=== PATIENT | male | born 1945 | race Caucasian/White ===

== ENCOUNTER → 2017-01-14 | Outpatient (CLI) | payer OTHER ==
[~2017-01-14] MED LIST: ALFU10TA2 PO; CHOL100010 PO; CINA0.42 PO; CLR10 PO; DOCU100C31 PO; FINA5TAB PO; ONDA4TAB7 SL
[2017-01-14 12:20] LABS: BASO % 0.7 %; BASO ABS # 0.03 K/uL (0-0.2); COMPLETE YES; EOS % 1.4 %; HEMATOCRIT 42.4 % (42-52); IG% 0.2 %; LYMPH % 22.5 %; LYMPH ABS # 0.94 K/uL (1.2-3.4); MEAN CORPUSCULAR HEMOGLOBIN 32.2 pg (25-34); MEAN CORPUSCULAR HGB CONC 35.4 g/dl (32-36); MEAN PLATELET VOLUME 10.8 fL (7.4-10.4); MONO % 12.9 %; NEUT % 62.3 %; PLATELET COUNT 125 K/uL (130-400); RED BLOOD COUNT 4.66 M/uL (4.7-6.1); WHITE BLOOD COUNT 4.17 K/uL (4.8-10.8)
[2017-01-14 14:00] LABS: ALT/SGPT 30 U/L (12-78); BLOOD UREA NITROGEN 30 mg/dl (7-18); BUN/CREATININE RATIO 24.9 (10-20); CALCIUM 8.9 mg/dl (8.5-10.1); CARBON DIOXIDE 32 mmol/L (21-32); CHLORIDE 106 mmol/L (98-107); CHOLESTEROL 209 mg/dl (0-200); GLUCOSE 86 mg/dl (70-99); POTASSIUM 4.3 mmol/L (3.5-5.1); SODIUM 143 mmol/L (136-145); TRIGLYCERIDES 85 mg/dl (0-150); VERY LOW DENSITY LIPOPROT CALC 17 mg/dl
[2017-01-14 14:03] LABS: ALB/GLOB RATIO 1.2 (0.9-2); ALKALINE PHOSPHATASE 87 U/L (45-117); AST/SGOT 23 U/L (15-37); CHOLESTEROL/HDL RATIO 3.9; HDL CHOLESTEROL 54 mg/dl; LDL CHOLESTEROL CALCULATED 138 mg/dl
--- NOTE | 2017-01-21 08:34 | CODING QUERY MEDICAL NECESSITY ---
CQSUPPORTING DIAGNOSIS NEEDED A supporting diagnosis is required for the test/procedure performed on this patient in order for us to be reimbursed by the patient's insurance. Please provide a supporting diagnosis for the following test/procedure listed below next to the test name along with your signature. *If there is no additional diagnosis for this patient that would support the following test/procedure please document that below next to the test/procedure. Test(s)/Procedure(s) that require a supporting diagnosis: DOS 01/14/17 VITAMIN B12 TEST Provider Signature: Date: Thank you Nora Roman [facility] Information Management Once completed, please kindly fax back to [phone] For questions please call [phone]
== END | disposition home or self-care (01) ==
LOC: C.LABPBG 10:05
PROVIDERS: ATTEND Internal Medicine
DX: E78.5 Hyperlipidemia, unspecified (principal); R26.9 Unspecified abnormalities of gait and mobility

== ENCOUNTER → 2017-03-06 | Outpatient (CLI) | payer OTHER ==
[2017-03-06 15:42] LABS: CALCIUM 8.7 mg/dl (8.5-10.1)
[2017-03-06 15:56] LABS: THYROID STIMULATING HORMONE 1.62 uIu/ml (0.300-4.500)
== END | disposition home or self-care (01) ==
LOC: C.LABSPEC 16:12
PROVIDERS: ATTEND Internal Medicine
DX: M81.0 Age-related osteoporosis without current pathological fracture (principal); E21.0 Primary hyperparathyroidism; E04.1 Nontoxic single thyroid nodule; E55.9 Vitamin D deficiency, unspecified; D69.6 Thrombocytopenia, unspecified

== ENCOUNTER → 2018-02-10 | Outpatient (CLI) | payer OTHER ==
[2018-02-10 13:12] LABS: BASO % 0.2 %; BASO ABS # 0.01 K/uL (0-0.2); EOS % 1.4 %; EOS ABS # 0.07 K/uL (0-0.5); HEMATOCRIT 43.7 % (42-52); HEMOGLOBIN 15.5 g/dL (14.0-18.0); IG# 0.02 K/uL (0.00-0.02); LYMPH % 17.5 %; MEAN CELL VOLUME 91.2 fL (80-100); MEAN CORPUSCULAR HEMOGLOBIN 32.4 pg (25-34); MEAN CORPUSCULAR HGB CONC 35.5 g/dl (32-36); MEAN PLATELET VOLUME 9.9 fL (7.4-10.4); MONO % 11.1 %; MONO ABS # 0.57 K/uL (0.11-0.59); NEUT % 69.4 %; NEUT ABS # 3.57 K/uL (1.4-6.5); PLATELET COUNT 145 K/uL (130-400); RED CELL DISTRIBUTION WIDTH CV 13.1 % (11.5-14.5); RED CELL DISTRIBUTION WIDTH SD 43.2 fL (36.4-46.3); WHITE BLOOD COUNT 5.14 K/uL (4.8-10.8)
[2018-02-10 14:05] LABS: ALT/SGPT 22 U/L (12-78); AST/SGOT 19 U/L (15-37); BLOOD UREA NITROGEN 24 mg/dl (7-18); CALCIUM 9.1 mg/dl (8.5-10.1); CARBON DIOXIDE 33 mmol/L (21-32); CHOLESTEROL 211 mg/dl (0-200); CREATININE 1.19 mg/dl (0.60-1.40); GLUCOSE 83 mg/dl (70-99); POTASSIUM 4.1 mmol/L (3.5-5.1); SODIUM 140 mmol/L (136-145)
[2018-02-10 14:12] LABS: ALKALINE PHOSPHATASE 90 U/L (45-117); LDL CHOLESTEROL CALCULATED 133 mg/dl; TOTAL PROTEIN 7.3 gm/dl (6.4-8.2)
== END | disposition home or self-care (01) ==
LOC: C.LABPBG 09:44
PROVIDERS: ATTEND Internal Medicine
DX: E04.0 Nontoxic diffuse goiter (principal); M81.0 Age-related osteoporosis without current pathological fracture; E55.9 Vitamin D deficiency, unspecified; N40.0 Benign prostatic hyperplasia without lower urinary tract symptoms; J45.909 Unspecified asthma, uncomplicated; E78.5 Hyperlipidemia, unspecified; R97.20 Elevated prostate specific antigen [PSA]; D69.6 Thrombocytopenia, unspecified

== ENCOUNTER 2020-09-04 20:00 | Inpatient (IN) ==
[2020-09-04] MEDS ORDERED: ERYTHROMYCIN OP OINT 5 MG/GM 3.5 GM TUBE OPL ONE (20:34)
[2020-09-04 20:37] LABS: Basophils # (auto) 0.01 K/uL (0-0.2); Basophils % (auto) 0.3 %; Eosinophils # (auto) 0.08 K/uL (0-0.5); Eosinophils % (auto) 2.2 %; Hematocrit (blood only) 37.9 % (42-52); Hemoglobin 13.2 g/dL (14.0-18.0); Immature Granulocytes # (auto) 0.02 K/uL (0.00-0.02); Immature Granulocytes % (auto) 0.5 %; Lymphocytes % (auto) 29.8 %; Mean Corpuscular Hgb Conc 34.8 g/dL (32-36); Mean Platelet Volume 10.5 fL (7.4-10.4); Monocytes # (auto) 0.52 K/uL (0.11-0.59); Monocytes % (auto) 14.1 %; Neutrophils # (auto) 1.96 K/uL (1.4-6.5); Neutrophils % (auto) 53.1 %; Platelet Count 140 K/uL (130-400); RDW Coefficient of Variation 12.6 % (11.5-14.5); RDW Standard Deviation 42.6 fL (36.4-46.3); Red Blood Count 4.12 M/uL (4.7-6.1); White Blood Count 3.69 K/uL (4.8-10.8)
[2020-09-04 20:44] LABS: Alanine Aminotransferase 42 U/L (12-78); Albumin Level 3.2 gm/dl (3.4-5.0); Aspartate Aminotransferase 34 U/L (15-37); BUN Creatinine Ratio 24.9 (10-20); Blood Urea Nitrogen 34 mg/dl (7-18); Calcium 9.3 mg/dl (8.5-10.1); Carbon Dioxide 30 mmol/L (21-32); Chloride 100 mmol/L (98-107); Creatinine Clr Calc Pharmacy 37.9 ml/min; Est GFR (African American) 58.4; Est GFR (Non-African American) 50.4; Glucose 99 mg/dl (70-99); Magnesium 1.7 mg/dl (1.8-2.4); Potassium 3.9 mmol/L (3.5-5.1); Sodium 137 mmol/L (136-145)
[2020-09-04 20:55] LABS: Alkaline Phosphatase 106 U/L (45-117); Bilirubin,Total 1.1 mg/dl (0.2-1); Globulin 3.4 gm/dl (2.5-4.0); Total Protein 6.6 gm/dl (6.4-8.2); Troponin I < 0.015 ng/ml (0-0.045)
[2020-09-04] MEDS ORDERED: AMPICILLIN/SULBACTAM SOD 3,000 MG in 0.9 % SODIUM CHLORIDE 100 ML IV STA (22:57)
[2020-09-04] MEDS ORDERED: OXYMETAZOLINE 0.05% 30 ML BTL ONE (22:58)
[2020-09-04 22:59] LABS: Appearance Urine Clear (Clear); Bacteria Urine Automated 4+ (Negative); Bilirubin Urine Negative (Negative); Blood Urine 3+ (Negative); Color Urine Yellow; Epithelial Cell Urine Auto 0-5 /lpf (0-5); Glucose Urine UA Negative (Negative); Ketones Urine Negative (Negative); Leukocyte Esterase Urine 2+ (Negative); Nitrite Urine Positive (Negative); Protein Urine Negative (Negative); RBC Urine Automated >30 /hpf (0-4); Specific Gravity Urine 1.013 (1.000-1.030); Urobilinogen Urine Negative (Negative); WBC Urine Automated >30 /hpf (0-5)
--- NOTE | 2020-09-05 01:16 | Emergency Department Note ---
History of Present Illness General Chief complaint: TIA Symptoms Stated complaint: TIA SX, CONFUSION Source: patient, family (Sister at the bedside) and RN notes reviewed Mode of arrival: EMS Limitations: other (Cognitive impairment) History of Present Illness Provider complaint: Confusion, behavioral change Male who presents emergency department with his sister who states he had behavioral changes over the course of the last week. Patient has a known history of prostate cancer and is scheduled for radiation seed placement in 3 days. The patient has also had several recent eye surgeries so he has been staying with his sister for supervision and medical care. The patient has had periodic episodes lasting up to 20 minutes of confusion and some change in his speech pattern. The patient has not been overtly confused but has been stating that he has wet himself or that he has to pee, or tapping his thighs repeatedly. His sister is concerned because she thought maybe the left side of his face was not moving properly earlier. He does receive eye medications several times a day per his landscape management technician after recent eyelid surgery. Patient had Covid testing done several days ago and was negative. He has been eating and drinking well. He has not had any vomiting or diarrhea. There has been no complaints of chest pain or shortness of breath. Home Medications Medication Instructions Recorded Confirmed Type cetirizine 10 mg capsule 10 mg PO QPM cap 04/28/20 09/04/20 History cholecalciferol (vitamin D3) 25 2,000 unit PO QPM tab 05/09/20 09/04/20 History mcg (1,000 unit) tablet alfuzosin 10 mg PO DAILY 08/17/20 09/04/20 History calcium carbonate [Tums Ultra] 400 mg PO QPM 08/17/20 09/04/20 History finasteride 5 mg PO DAILY 08/17/20 09/04/20 History ibuprofen 400 mg PO BID PRN 08/17/20 09/04/20 History erythromycin 1 applic OPL TID 09/04/20 09/04/20 History leuprolide (3 month) [Eligard (3 22.5 mg SUBCUT DIRECTED 09/04/20 09/04/20 History month)] omeprazole 20 mg PO QAM 09/04/20 09/04/20 History Allergies Allergy/AdvReac Type Severity Reaction Status Date / Time alendronate sodium Allergy Intermediate nausea Verified 09/04/20 21:58 tamsulosin Allergy Intermediate nausea Verified 09/04/20 21:58 Past Med/Surg History Medical History (Updated 09/05/20 @ 01:22 by Carlotta Parsons MD) Asthma no inhaler Atrophy of left kidney Bladder diverticulum Cerebral palsy per records, sister (Lo) denies Chronic GERD Cognitive developmental delay Diffuse nontoxic goiter Diverticulosis Enlarged prostate without lower urinary tract symptoms (luts) Esophageal dysmotility Gait disturbance Hyperlipidemia Hyperparathyroidism Intellectual disability lives alone/independently, able to read/write, sister lives next door (legal guardian) Nephrolithiasis Osteoporosis Sensory hearing loss Skin cancer of anterior chest SCC Surgical History H/O colonoscopy Tubular adenoma H/O parathyroidectomy History of cataract surgery R/L History of lung biopsy 2002 ([facility]), 2006 ([facility]) FIRST TIME FOR LUNG ABSCESS, SECOND FOR ABNORMAL IMAGING History of placement of ear tubes No longer in place History of prostate biopsy x3 History of surgery Bilateral upper eyelids for drooping Hx of cholecystectomy laparoscopic--Dr. Shah in [place] S/P skin biopsy Mohs surgery for BCC on his face 03/01/2020 Family History Mother , 77yo AAA (abdominal aortic aneurysm) Enlarged heart Alzheimer disease Hypertension Father , 77yo COPD (chronic obstructive pulmonary disease) Hypertension Stroke Sister Hypertension Grandfather (Maternal) Diabetes Other Hyperlipidemia Osteoporosis Thyroid cancer Denies family history of Ovarian cancer Prostate cancer Myocardial infarction Breast cancer Colorectal cancer Social History Smoking Status: Never smoker Second Hand Exposure: Yes (FATHER SMOKED PIPE); Hx Alcohol Use: No Hx Substance Use: No Preferred Language: Botswanan Communication Ability: Effective Visual Impairment: No Limitations Hearing Ability: Use of Hearing Aid Religious Education Teacher Required: No Beliefs That Will Affect Care: None marital status: Single Current Living Situation: Alone current occupational status: disabled Feels Safe at Home: Yes caffeine: No during the past year weight has: remained stable Dental Care, Regularly: No Physical Activity Frequency: Daily Seatbelt Use: always Assistive Devices: Denture - Upper, Glasses and Hearing Aid - Bilateral Review of Systems Unobtainable due to cognitive status (Cognitive delay) and Other (History is somewhat limited secondary to cognitive delay and largely obtained per sister/caregiver at the bedside) Physical Exam Vital Signs Vital Signs - 24 hr 09/04/20 20:04 09/04/20 20:07 09/04/20 20:45 Temperature 36.6 C Temperature Source Oral Pulse Rate 78 85 78 Pulse Rate from SpO2 Sensor Respiratory Rate 20 18 20 Blood Pressure 157/90 H 157/90 H 161/88 H Blood Pressure Mean 119 112 116 Pulse Oximetry 93 Oxygen Delivery Method Room Air Sepsis Recent Fever Within 48 Hours No Sepsis New/Unexplained Change in Mental Status N/A Sepsis Action Taken by Nursing No Action Required 09/04/20 21:00 09/04/20 22:00 09/04/20 22:30 Temperature Temperature Source Pulse Rate 76 78 76 Pulse Rate from SpO2 Sensor 77 Respiratory Rate 23 22 20 Blood Pressure 155/86 H 158/100 H 155/91 H Blood Pressure Mean 95 114 111 Pulse Oximetry 93 Oxygen Delivery Method Sepsis Recent Fever Within 48 Hours Sepsis New/Unexplained Change in Mental Status Sepsis Action Taken by Nursing Vital signs reviewed. General: Cognitively delayed, elderly somewhat ill-appearing 75-year-old male, in no significant distress. HEENT: No scleral icterus, left conjunctiva is mildly injected, PERRLA, neck supple. Cardiovascular: Regular rate and rhythm, no extra sounds. Pulmonary: Clear to auscultation bilaterally, normal work of breathing. Abdomen: Soft, nontender, nondistended, positive bowel sounds. Musculoskeletal: Atraumatic, no peripheral edema. Neurologic: Patient awake alert and oriented x 3, full strength in all 4 extremities. Cranial nerves 2 through 12 grossly intact. No appreciable juan olabial fold flattening. Skin: Warm, dry, no rash Course Administered Medications Discontinued Medications Erythromycin (Erythromycin Op Oint 5 Mg/Gm 3.5 Gm Tube) 1 appln OPL NOW ONE Stop: 09/04/20 20:35 Last Admin: 09/04/20 21:32 Dose: 1 appln Documented by: [id number] Ampicillin Sodium/Sulbactam Sodium 3,000 mg/ Sodium Chloride 108 mls @ 200 mls/hr IV NOW STA; Protocol Stop: 09/04/20 23:29 Last Infusion: 09/05/20 00:15 Dose: 0 mls/hr Documented by: [id number] Admin: 09/04/20 23:36 Dose: 200 mls/hr Documented by: [id number] Oxymetazoline HCl (Oxymetazoline 0.05% 30 Ml Btl) 2 sprays NA NOW ONE Stop: 09/04/20 22:59 Last Admin: 09/04/20 23:36 Dose: 2 sprays Documented by: [id number] Medical Decision Making Differential Diagnosis Infection, dehydration, metabolic abnormality, hypo/hyperglycemia, electrolyte disturbance, anemia, hypoxia, cardiac sources, intracerebral event, toxicologic, neurologic, as well as other pathologies. Medical Records Attestation: I reviewed the patient's medical records. Home Medications Current Medication List: was personally reviewed by me Laboratory Data Attestation: I reviewed the patient's lab results. Result diagrams: 09/04/20 20:05 09/04/20 20:05 Lab Results 09/04/20 09/04/20 09/04/20 Range/Units 20:05 20:05 20:46 WBC 3.69 L (4.8-10.8) K/uL RBC 4.12 L (4.7-6.1) M/uL Hgb 13.2 L (14.0-18.0) g/dL Hct 37.9 L (42-52) % MCV 92.0 (80-100) fL MCH 32.0 (25-34) pg MCHC 34.8 (32-36) g/dL RDW Std Deviation 42.6 (36.4-46.3) fL RDW Coeff of Patricia 12.6 (11.5-14.5) % Plt Count 140 (130-400) K/uL MPV 10.5 H (7.4-10.4) fL Immature Gran % (Auto) 0.5 % Neut % (Auto) 53.1 % Lymph % (Auto) 29.8 % Dawes % (Auto) 14.1 % Eos % (Auto) 2.2 % Baso % (Auto) 0.3 % Neut # (Auto) 1.96 (1.4-6.5) K/uL Lymph # (Auto) 1.10 L (1.2-3.4) K/uL Dawes # (Auto) 0.52 (0.11-0.59) K/uL Eos # (Auto) 0.08 (0-0.5) K/uL Baso # (Auto) 0.01 (0-0.2) K/uL Immature Gran # (Auto) 0.02 (0.00-0.02) K/uL Sodium 137 (136-145) mmol/L Potassium 3.9 (3.5-5.1) mmol/L Chloride 100 (98-107) mmol/L Carbon Dioxide 30 (21-32) mmol/L Anion Gap 8.0 (3-11) BUN 34 H (7-18) mg/dl Creatinine 1.38 (0.6-1.4) mg/dl Est Cr Clr Drug Dosing 37.9 ml/min Est GFR ( Amer) 58.4 Est GFR (Non-Af Amer) 50.4 BUN/Creatinine Ratio 24.9 H (10-20) Glucose 99 (70-99) mg/dl Lactate 0.7 (0.4-2.0) mmol/L Calcium 9.3 (8.5-10.1) mg/dl Magnesium 1.7 L (1.8-2.4) mg/dl Total Bilirubin 1.1 H (0.2-1) mg/dl AST 34 (15-37) U/L ALT 42 (12-78) U/L Alkaline Phosphatase 106 (45-117) U/L Troponin I < 0.015 (0-0.045) ng/ml Total Protein 6.6 (6.4-8.2) gm/dl Albumin 3.2 L (3.4-5.0) gm/dl Globulin 3.4 (2.5-4.0) gm/dl Albumin/Globulin Ratio 1.0 (0.9-2) TSH 2.990 (0.300-4.500) uIu/ml Urine Color Urine Appearance (Clear) Urine pH (4.5-7.5) Ur Specific Cyril (1.000-1.030) Urine Protein (Negative) Urine Glucose (UA) (Negative) Urine Ketones (Negative) Urine Blood (Negative) Urine Nitrite (Negative) Urine Bilirubin (Negative) Urine Urobilinogen (Negative) Ur Leukocyte Esterase (Negative) Urine WBC (Auto) (0-5) /hpf Urine RBC (Auto) (0-4) /hpf U Hyaline Cast (Auto) (0-5) /lpf U Epithel Cells (Auto) (0-5) /lpf Urine Bacteria (Auto) (Negative) SARS-CoV-2 Ag (Rapid) (Negative) 09/04/20 09/04/20 Range/Units 22:39 Unknown WBC (4.8-10.8) K/uL RBC (4.7-6.1) M/uL Hgb (14.0-18.0) g/dL Hct (42-52) % MCV (80-100) fL MCH (25-34) pg MCHC (32-36) g/dL RDW Std Deviation (36.4-46.3) fL RDW Coeff of Patricia (11.5-14.5) % Plt Count (130-400) K/uL MPV (7.4-10.4) fL Immature Gran % (Auto) % Neut % (Auto) % Lymph % (Auto) % Dawes % (Auto) % Eos % (Auto) % Baso % (Auto) % Neut # (Auto) (1.4-6.5) K/uL Lymph # (Auto) (1.2-3.4) K/uL Dawes # (Auto) (0.11-0.59) K/uL Eos # (Auto) (0-0.5) K/uL Baso # (Auto) (0-0.2) K/uL Immature Gran # (Auto) (0.00-0.02) K/uL Sodium (136-145) mmol/L Potassium (3.5-5.1) mmol/L Chloride (98-107) mmol/L Carbon Dioxide (21-32) mmol/L Anion Gap (3-11) BUN (7-18) mg/dl Creatinine (0.6-1.4) mg/dl Est Cr Clr Drug Dosing ml/min Est GFR ( Amer) Est GFR (Non-Af Amer) BUN/Creatinine Ratio (10-20) Glucose (70-99) mg/dl Lactate (0.4-2.0) mmol/L Calcium (8.5-10.1) mg/dl Magnesium (1.8-2.4) mg/dl Total Bilirubin (0.2-1) mg/dl AST (15-37) U/L ALT (12-78) U/L Alkaline Phosphatase (45-117) U/L Troponin I (0-0.045) ng/ml Total Protein (6.4-8.2) gm/dl Albumin (3.4-5.0) gm/dl Globulin (2.5-4.0) gm/dl Albumin/Globulin Ratio (0.9-2) TSH (0.300-4.500) uIu/ml Urine Color Yellow Urine Appearance Clear (Clear) Urine pH 7.0 (4.5-7.5) Ur Specific Cyril 1.013 (1.000-1.030) Urine Protein Negative (Negative) Urine Glucose (UA) Negative (Negative) Urine Ketones Negative (Negative) Urine Blood 3+ H (Negative) Urine Nitrite Positive A (Negative) Urine Bilirubin Negative (Negative) Urine Urobilinogen Negative (Negative) Ur Leukocyte Esterase 2+ H (Negative) Urine WBC (Auto) >30 H (0-5) /hpf Urine RBC (Auto) >30 H (0-4) /hpf U Hyaline Cast (Auto) 1-5 (0-5) /lpf U Epithel Cells (Auto) 0-5 (0-5) /lpf Urine Bacteria (Auto) 4+ H (Negative) SARS-CoV-2 Ag (Rapid) Negative (Negative) Imaging Data Radiologist's Impression: CT HEAD: There is partial visualization of complete opacification of the left maxillary sinus which may indicate sinusitis. The remaining visualized sinuses and mastoid air cells are normal. There is no skull fracture or scalp hematoma. There is a normal gyral pattern of the brain. There is no mass lesion or midline shift. The beth-white matter differentiation is maintained. There is mild periventricular white matter low density bilaterally consistent with chronic small vessel disease. There is no evidence of acute large vessel infarct or intracranial hemorrhage. Radiologist: Austin Alfaro MD Study ready at 21:53 and initial results transmitted at 22:37 ECG Data Attestation: I personally reviewed and interpreted this ECG as follows: Indication: + altered mental status Rate (beats per minute): 83 Rhythm: + normal sinus ECG Intervals/blocks: + Normal QT-c ECG [place]ington: + Left axis deviation ECG ST segments: + Normal ST segments ECG Findings: + PVCs Blood Pressure Blood Pressure Findings: Elevated blood pressure Blood Pressure Disposition: further management by hospitalist [facility] Narrative This patient was evaluated and appeared to be in no significant distress. IV access was obtained and laboratory work was drawn. An order for cardiac m onitoring was placed and the patient is noted to be in a normal sinus rhythm with occasional PVCs at 85 bpm. Laboratory work reveals a mild leukopenia with a platelet count of 140. Head CT was performed and reveals a left maxillary sinus opacification concerning for an acute sinusitis. There is no evidence of acute intracranial pathology. UA today reveals evidence of blood, WBC, leukocyte and nitrate. Patient's last 2 urine cultures were reviewed and were negative despite positive UAs. Patient was given Unasyn 4.5 g IV. Patient may be suffering from prostatitis as opposed to cystitis in addition to his maxillary sinusitis. He was given Afrin nasal spray to help drain the sinus. Patient will be evaluated by the hospitalist, Dr. Loredo for further management. Patient sister is aware of the plan and agrees. Impression & Plan Delirium, Prostate cancer, Sinusitis, Cognitive developmental delay Discharge Plan Visit Data Chief Complaint: TIA Symptoms Stated Complaint: TIA SX, CONFUSION ED Provider: Carlotta Parsons Discharge Problem: Delirium, Prostate cancer, Sinusitis, Cognitive developmental delay Forms Stand Alone Forms: [facility] [employer] Prescriptions Prescriptions: No Action All Day Allergy (cetirizine) 10 mg capsule 10 mg PO QPM RF: 0 cholecalciferol (vitamin D3) 25 mcg (1,000 unit) tablet 2,000 unit PO QPM RF: 0 calcium carbonate [Tums Ultra] 400 mg calcium (1,000 mg) Tablet,Chewable 400 mg PO QPM RF: 0 finasteride 5 mg tablet 5 mg PO DAILY RF: 0 alfuzosin 10 mg tablet extended release 24 hr 10 mg PO DAILY RF: 0 ibuprofen 200 mg Capsule 400 mg PO BID PRN (Reason: Pain) RF: 0 omeprazole 20 mg capsule,delayed release(DR/EC) 20 mg PO QAM RF: 0 Eligard (3 month) 22.5 mg syringe 22.5 mg subcut DIRECTED RF: 0 erythromycin 5 mg/gram (0.5 %) ointment 1 applic OPL TID RF: 0 Discharge Problem: Sinusitis Qualifiers: Sinusitis location: maxillary Chronicity: acute Recurrence: not specified as recurrent Qualified Code(s): J01.00 - Acute maxillary sinusitis, unspecified
--- NOTE | 2020-09-05 01:37 | History & Physical Report ---
Date of Service September 05, 2020 Assessment & Plan (1) Delirium: Delirium/confusion- likely secondary to UTI with presumptive prostatitis Present on Admission?: Yes (2) Urinary tract infection: Received Unasyn 3 g IV in the ED. Placed on Zosyn 3.375 g IV every 8 hours NSS + KCl 20 mEq at 100 mils per hour Follow urine culture and sensitivity Present on Admission?: Yes (3) Prostate cancer: Scheduled for radiation seed implant this week. Continue alfuzosin 10 mg p.o. daily and finasteride 5 mg p.o. daily Consult urology Dr. Bolaños Present on Admission?: Yes (4) Chronic GERD: Continue omeprazole 20 mg p.o. daily Present on Admission?: Yes (5) Cognitive developmental delay: History of Present Illness Chief Complaint: The patient presents to the emergency department with his sister, who is concerned about behavioral changes the patient has had over the past week Primary Care Provider: Carlos Dasilva MD The patient is a 75-year-old male with a past medical history including cognitive developmental delay, prostate cancer, esophageal dysmotility, chronic GERD, thrombocytopenia, and hyperlipidemia. The patient is reportedly scheduled for radiation seed placement for prostate cancer in 3 days, having recently seen Dr. Bolaños. He also recently had eye surgeries, and for this reason has been staying with his sister to help with his medical care. She reports that he has had several episodes of 20-minute duration confusion and change in his speech pattern. She reports that he has had some occasional urinary incontinence. He recently had a negative Covid test. Allergies Allergy/AdvReac Type Severity Reaction Status Date / Time alendronate sodium Allergy Intermediate nausea Verified 09/04/20 21:58 tamsulosin Allergy Intermediate nausea Verified 09/04/20 21:58 Home Medications Medication Instructions Recorded Confirmed Type cetirizine 10 mg capsule 10 mg PO QPM cap 04/28/20 09/04/20 History cholecalciferol (vitamin D3) 25 2,000 unit PO QPM tab 05/09/20 09/04/20 History mcg (1,000 unit) tablet alfuzosin 10 mg PO DAILY 08/17/20 09/04/20 History calcium carbonate [Tums Ultra] 400 mg PO QPM 08/17/20 09/04/20 History finasteride 5 mg PO DAILY 08/17/20 09/04/20 History ibuprofen 400 mg PO BID PRN 08/17/20 09/04/20 History erythromycin 1 applic OPL TID 09/04/20 09/04/20 History leuprolide (3 month) [Eligard (3 22.5 mg SUBCUT DIRECTED 09/04/20 09/04/20 History month)] omeprazole 20 mg PO QAM 09/04/20 09/04/20 History Past Med/Surg History Medical History (Updated 09/05/20 @ 03:51 by Raji Clarke MD) Asthma no inhaler Atrophy of left kidney Bladder diverticulum Cerebral palsy per records, sister (Lo) denies Chronic GERD Cognitive developmental delay Diffuse nontoxic goiter Diverticulosis Enlarged prostate without lower urinary tract symptoms (luts) Esophageal dysmotility Gait disturbance Hyperlipidemia Hyperparathyroidism Intellectual disability lives alone/independently, able to read/write, sister lives next door (legal guardian) Nephrolithiasis Osteoporosis Sensory hearing loss Skin cancer of anterior chest SCC Surgical History H/O colonoscopy Tubular adenoma H/O parathyroidectomy History of cataract surgery R/L History of lung biopsy 2002 ([facility]), 2006 ([facility]CA[facility] PNEUM[facility] X[facility] DA[facility]) FIRST TIME FOR LUNG ABSCESS, SECOND FOR ABNORMAL IMAGING History of placement of ear tubes No longer in place History of prostate biopsy x3 History of surgery Bilateral upper eyelids for drooping Hx of cholecystectomy laparoscopic--Dr. Shah in [place] S/P skin biopsy Mohs surgery for BCC on his face 03/01/2020 Family History Mother , 77yo AAA (abdominal aortic aneurysm) Enlarged heart Alzheimer disease Hypertension Father , 77yo COPD (chronic obstructive pulmonary disease) Hypertension Stroke Sister Hypertension Grandfather (Maternal) Diabetes Other Hyperlipidemia Osteoporosis Thyroid cancer Denies family history of Ovarian cancer Prostate cancer Myocardial infarction Breast cancer Colorectal cancer Social History Smoking Status: Never smoker Second Hand Exposure: Yes (FATHER SMOKED PIPE); Hx Alcohol Use: No Hx Substance Use: No Preferred Language: Yakut Communication Ability: Effective Visual Impairment: No Limitations Hearing Ability: Use of Hearing Aid Operations Lead Required: No Beliefs That Will Affect Care: None marital status: Single Current Living Situation: Alone Current Living Situation Comment: sister lives next door current occupational status: disabled Other Information That Helps Us Care for You: No Feels Safe at Home: Yes Safety Concerns: Feels Safe At This Time caffeine: No during the past year weight has: remained stable Dental Care, Regularly: No Physical Activity Frequency: Daily Seatbelt Use: always Assistive Devices: Hearing Aid - Bilateral Review of Systems Review of Systems: Unobtainable due to cognitive status Physical Exam Physical Exam: The patient is awake, but lethargic, normocephalic and atraumatic, lying in bed and in no acute distress. HEENT--PERRL, EOMI, mucous membranes and oropharynx dry. Neck--supple. No JVD. No bruits. Thyroid normal, trachea midline, no adenopathy. Heart--normal S1 and S2. No murmurs, rubs or gallops. Lungs--clear bilaterally, no respiratory distress, no accessory muscle use. Abdomen--normal bowel sounds and soft. Nontender. Nondistended. Extremities--no cyanosis or clubbing. No edema. Dermatologic--normal skin turgor, normal color, no abnormal lymph nodes, no rash. Neurologic--cranial nerves II through XII grossly intact. Rheumatologic--limited exam Psychiatric--lethargic Results & Data Results & Data ([facility]) Vital Signs (Past 12 Hours) Vital Signs Temp Pulse Resp BP Pulse Ox 09/04/20 22:30 76 20 155/91 H 09/04/20 22:00 78 22 158/100 H 93 09/04/20 21:00 76 23 155/86 H 09/04/20 20:45 78 20 161/88 H 09/04/20 20:07 97.9 F 85 18 157/90 H 93 09/04/20 20:04 78 20 157/90 H Laboratory Results Laboratory Results WBC 3.69 K/uL (4.8-10.8) L 09/04/20 20:05 RBC 4.12 M/uL (4.7-6.1) L 09/04/20 20:05 Hgb 13.2 g/dL (14.0-18.0) L 09/04/20 20:05 Hct 37.9 % (42-52) L 09/04/20 20:05 MCV 92.0 fL (80-100) 09/04/20 20:05 MCH 32.0 pg (25-34) 09/04/20 20: MCHC 34.8 g/dL (32-36) 09/04/20 20:05 RDW Std Deviation 42.6 fL (36.4-46.3) 09/04/20 20: RDW Coeff of Patricia 12.6 % (11.5-14.5) 09/04/20 20: Plt Count 140 K/uL (130-400) 09/04/20 20:05 MPV 10.5 fL (7.4-10.4) H 09/04/20 20:05 Immature Gran % (Auto) 0.5 % 09/04/20 20: Neut % (Auto) 53.1 % 09/04/20 20: Lymph % (Auto) 29.8 % 09/04/20 20: [place] % (Auto) 14.1 % 09/04/20 20:05 Eos % (Auto) 2.2 % 09/04/20 20:05 Baso % (Auto) 0.3 % 09/04/20 20:05 Neut # (Auto) 1.96 K/uL (1.4-6.5) 09/04/20 20:05 Lymph # (Auto) 1.10 K/uL (1.2-3.4) L 09/04/20 20:05 [place] # (Auto) 0.52 K/uL (0.11-0.59) 09/04/20 20:05 Eos # (Auto) 0.08 K/uL (0-0.5) 09/04/20 20:05 Baso # (Auto) 0.01 K/uL (0-0.2) 09/04/20 20:05 Immature Gran # (Auto) 0.02 K/uL (0.00-0.02) 09/04/20 20:05 Sodium 137 mmol/L (136-145) 09/04/20 20:05 Potassium 3.9 mmol/L (3.5-5.1) 09/04/20 20:05 Chloride 100 mmol/L (98-107) 09/04/20 20:05 Carbon Dioxide 30 mmol/L (21-32) 09/04/20 20:05 Anion Gap 8.0 (3-11) 09/04/20 20:05 BUN 34 mg/dl (7-18) H 09/04/20 20:05 Creatinine 1.38 mg/dl (0.6-1.4) 09/04/20 20:05 Est Cr Clr Drug Dosing 37.9 ml/min 09/04/20 20:05 Est GFR ( Amer) 58.4 09/04/20 20:05 Est GFR (Non-Af Amer) 50.4 09/04/20 20:05 BUN/Creatinine Ratio 24.9 (10-20) H 09/04/20 20:05 Glucose 99 mg/dl (70-99) 09/04/20 20:05 Lactate 0.7 mmol/L (0.4-2.0) 09/04/20 20:46 Calcium 9.3 mg/dl (8.5-10.1) 09/04/20 20:05 Magnesium 1.7 mg/dl (1.8-2.4) L 09/04/20 20:05 Total Bilirubin 1.1 mg/dl (0.2-1) H 09/04/20 20:05 AST 34 U/L (15-37) 09/04/20 20:05 ALT 42 U/L (12-78) 09/04/20 20:05 Alkaline Phosphatase 106 U/L (45-117) 09/04/20 20:05 Troponin I < 0.015 ng/ml (0-0.045) 09/04/20 20:05 Total Protein 6.6 gm/dl (6.4-8.2) 09/04/20 20:05 Albumin 3.2 gm/dl (3.4-5.0) L 09/04/20 20:05 Globulin 3.4 gm/dl (2.5-4.0) 09/04/20 20:05 Albumin/Globulin Ratio 1.0 (0.9-2) 09/04/20 20:05 TSH 2.990 uIu/ml (0.300-4.500) 09/04/20 20:05 Urine Color Yellow 09/04/20 22:39 Urine Appearance Clear (Clear) 09/04/20 22:39 Urine pH 7.0 (4.5-7.5) 09/04/20 22:39 Ur Specific [place] 1.013 (1.000-1.030) 09/04/20 22:39 Urine Protein Negative (Negative) 09/04/20 22:39 Urine Glucose (UA) Negative (Negative) 09/04/20 22:39 Urine Ketones Negative (Negative) 09/04/20 22:39 Urine Blood 3+ (Negative) H 09/04/20 22:39 Urine Nitrite Positive (Negative) A 09/04/20 22:39 Urine Bilirubin Negative (Negative) 09/04/20 22:39 Urine Urobilinogen Negative (Negative) 09/04/20 22:39 Ur Leukocyte Esterase 2+ (Negative) H 09/04/20 22:39 Urine WBC (Auto) >30 /hpf (0-5) H 09/04/20 22:39 Urine RBC (Auto) >30 /hpf (0-4) H 09/04/20 22:39 U Hyaline Cast (Auto) 1-5 /lpf (0-5) 09/04/20 22:39 U Epithel Cells (Auto) 0-5 /lpf (0-5) 09/04/20 22:39 Urine Bacteria (Auto) 4+ (Negative) H 09/04/20 22:39 SARS-CoV-2 Ag (Rapid) Negative (Negative) 09/04/20 Unknown Diagnostic Findings [facility] Patient: CHERY RIVERA (Male) : 49 Status: ER Date: 09/04/20 21:46 Room #: History: [facility] Slices: 57 Priors: Tech: Refugio Wesley @ [id number] Exams: CT HEAD Contrast: Accession Numbers: [id number] Preliminary Findings Only See Final Report For Complete Findings CT HEAD: There is partial visualization of complete opacification of the left maxillary sinus which may indicate sinusitis. The remaining visualized sinuses and mastoid air cells are normal. There is no skull fracture or scalp hematoma. There is a normal gyral pattern of the brain. There is no mass lesion or midline shift. The beth-white matter differentiation is maintained. There is mild periventricular white matter low density bilaterally consistent with chronic small vessel disease. There is no evidence of acute large vessel infarct or intracranial hemorrhage. Radiologist: Austin Alfaro MD Study ready at 21:53 and initial results transmitted at 22:37 *This report constitutes a preliminary interpretation only. Non-acute findings felt to be unrelated to the clinical presentation may not be discussed in this report. The study will be interpreted and a final report will be generated by the local Radiologist the following shift. To reach the hospital radiology department call [phone]. If a discrepancy is found between the preliminary and final interpretations of this study, please notify us via our Client Portal at [email or web address] under QA [email or web address].You can also fax this report with a description of the discrepancy, or include the final report, to our daytime fax number [phone].If faxing, please indicate the severity of discrepancy using one of the following categories: [ ] 1 - Agree/Informational [ ] 2 - Unlikely to Affect Management [ ] 3 - Possible Eventual Change of Management [ ] 4 - Probable Immediate Change of Management For all other patient related information, please fax us at [phone]. [id number] Code Status & VTE Plan Code Status Full code VTE Prophylaxis Plan VTE Prophylaxis will be ordered: Yes PG Care Time/CCT Total # of Minutes Spent Total Time Spent with Patient: Total time spent is greater than 50% in coordination of care (as documented) at patient's floor/unit and/or counseling patient: Coding Level of Care Code 22440 Initial Inpt Care Lvl 2 Diagnoses Delirium R41.0 Urinary tract infection N39.0 Prostate cancer C61 Chronic GERD K21.9 Cognitive developmental delay F81.9
[2020-09-05] MEDS ORDERED: PIPERACILL/TAZOBAC CONSULT ACTIVE PRN (02:51)
[2020-09-05] MEDS ORDERED: POLYETHYLENE (MIRALAX) 17 GM PACK PO PRN (02:51)
[2020-09-05] MEDS ORDERED: ACETAMINOPHEN 325 MG TAB PO PRN (02:51)
[2020-09-05] MEDS ORDERED: ONDANSETRON INJ 2 MG/ML 2 ML VIAL IV PRN (02:51)
[2020-09-05] MEDS: NSS + 20MEQ KCL 20 MEQ/1,000 ML BAG IV SCH ×2 (03:50→12:59)
[2020-09-05] MEDS: MAGNESIUM SULFATE / D5W 1 GM/100 ML BAG IV SCH ×2 (03:50→06:10)
[2020-09-05] MEDS ORDERED: PIPERACILLIN/TAZOBACTAM 3.375 GM in DEXTROSE 5% 100 ML IV ONE (04:00)
--- NOTE | 2020-09-05 06:47 | CT Scan Report ---
CT head/brain wo con CLINICAL HISTORY: Acute change in mental status COMPARISON STUDY: No previous studies for comparison. TECHNIQUE: Axial CT of the brain is performed from the vertex to the skull base. IV contrast was not administered for this examination. A dose lowering technique was utilized adhering to the principles of ALARA. CT DOSE: 537.48 mGy.cm FINDINGS: No intra or extra-axial mass lesions are visualized. There is no CT evidence of acute cortical infarc tion. There is no evidence of midline shift. There is no acute hemorrhage. No calvarial fractures ar e visualized. There are mild white matter hypodensities likely on a small vessel basis. There is no evidence of pathologic ventricular dilatation. There is complete opacification of the left maxillary sinus. IMPRESSION: 1. No acute intracranial findings 2. Complete opacification of the left maxillary sinus ACT 112: Negative or not required by law. Electronically signed by: Sidney Ozuna M.D. 09/05/2020 6:46 AM
--- NOTE | 2020-09-05 07:00 | XRay Report ---
XR chest 1V portable HISTORY: 75 years-old Male weakness acute weakness COMPARISON: Chest radiograph 7 08/24/2020 TECHNIQUE: Portable AP view of the chest FINDINGS: Cardiac silhouette is upper limits of normal in size. Unchanged bilateral reticular nodular opacities . Persistent blunting of the costophrenic angles without pneumothorax, large pleural effusion or over t pulmonary edema. No lobar airspace consolidation. Degenerative changes of the shoulders and spine. IMPRESSION: 1. Unchanged reticular nodular opacities. 2. Cardiomegaly. ACT 112: Negative or not required by law. The above report was generated using voice recognition software. It may contain grammatical, syntax o r spelling errors. Electronically signed by: Tiago Perez M.D. 09/05/2020 6:59 AM
[2020-09-05] MEDS: PANTOprazole 40 MG TAB PO SCH (07:57)
[2020-09-05] MEDS: ALFUZOSIN HCL 10 MG TAB PO SCH (07:57)
[2020-09-05] MEDS: HEPARIN SOD 5,000 UNIT/0.5 ML VIAL SQ SCH ×2 (07:58→21:11)
[2020-09-05] MEDS: FINASTERIDE 5 MG TAB PO SCH (07:58)
[2020-09-05] MEDS: ERYTHROMYCIN OP OINT 5 MG/GM 3.5 GM TUBE OPL SCH ×3 (08:00→21:05)
--- NOTE | 2020-09-05 08:29 | Urology Consultation ---
Date of Consultation September 05, 2020 Assessment & Plan (1) Urinary tract infection: (2) Delirium: (3) Prostate cancer: 75 year-old male patient, with multiple comorbidities, admitted with altered mental status felt likely due to UTI with presumed prostatitis. -Patient with clinical improvement since hospital admission. -Remains afebrile. -Labs reviewed, white count and creatinine stable. -Urine and blood cultures pending, urinalysis suspicious for UTI. -Continue with broad-spectrum antibiotic therapy and supportive care, follow cultures. -Discussed plan with Dr. Bolaños and given presumed infection, will need to reschedule upcoming brachytherapy. -Recommend treatment of acute infection prior to undergoing surgical intervention for prostate cancer. -Patient's primary and HIPAA contact, Lo, updated via phone call today. -Continue to follow while inpatient. History of Present Illness Reason for Consultation: prostatitis, prostate cancer Attending Physician: Fabio Drummond MD History of Present Illness 75 year-old male patient, with a past medical history including cognitive developmental delay, prostate cancer, esophageal dysmotility, chronic GERD, thrombocytopenia, and hyperlipidemia, presented to the hospital with several episodes of confusion and changes in speech pattern. Patient is scheduled for upcoming brachytherapy with Dr. Bolaños. Patient also recently had eye surgeries in which has been staying with his sister for help with recovery. Urology consulted due to prostatitis and prostate cancer. Patient is a known patient to [facility], has followed with both Dr. [place] and Dr. Bolaños. Prostate cancer: Prostate biopsyJune 2019 MRI with a PI-RADS 5 lesion occupying essentially the full left side of the prostate Targeted biopsies performed as well as a full template of standard biopsies PSA 11.9 Av 4+4 = 8 prostate cancermixed ductal and acinar adenocarcinoma Chart review: Afebrile Labs reviewed 09/04 - Wbc 3.69 Hgb 12.2 Creatinine 1.38 Urinalysis >30 wbc, >30 rbc, +4 bacteria, nitrate positive. Urine culture from 08/29 showing high counts of probable skin reece. 09/04 blood and urine culture pending - currently on IV Zosyn. Patient examined at bedside this morning. He reports he is feeling "much better" overall. States his nausea and abdominal pain has resolved. Does report some hematuria. Denies dysuria. Denies urinary frequency or urgency. Feels he empties his bladder overall. No incontinence/dribbling. Denies fevers or chills. Now tolerating his breakfast without difficulty. No reported cough or shortness of breath. No chest pain. Does have brachytherapy scheduled on Friday 09/07. Denies additional urologic concerns today. Allergies Allergy/AdvReac Type Severity Reaction Status Date / Time alendronate sodium Allergy Intermediate nausea Verified 09/04/20 21:58 tamsulosin Allergy Intermediate nausea Verified 09/04/20 21:58 Home Medications Medication Instructions Recorded Confirmed Type cetirizine 10 mg capsule 10 mg PO QPM cap 04/28/20 09/04/20 History cholecalciferol (vitamin D3) 25 2,000 unit PO QPM tab 05/09/20 09/04/20 History mcg (1,000 unit) tablet alfuzosin 10 mg PO DAILY 08/17/20 09/04/20 History calcium carbonate [Tums Ultra] 400 mg PO QPM 08/17/20 09/04/20 History finasteride 5 mg PO DAILY 08/17/20 09/04/20 History ibuprofen 400 mg PO BID PRN 08/17/20 09/04/20 History erythromycin 1 applic OPL TID 09/04/20 09/04/20 History leuprolide (3 month) [Eligard (3 22.5 mg SUBCUT DIRECTED 09/04/20 09/04/20 History month)] omeprazole 20 mg PO QAM 09/04/20 09/04/20 History Patient History Medical History Asthma no inhaler Atrophy of left kidney Bladder diverticulum Cerebral palsy per records, sister (Lo) denies Chronic GERD Cognitive developmental delay Diffuse nontoxic goiter Diverticulosis Enlarged prostate without lower urinary tract symptoms (luts) Esophageal dysmotility Gait disturbance Hyperlipidemia Hyperparathyroidism Intellectual disability lives alone/independently, able to read/write, sister lives next door (legal guardian) Nephrolithiasis Osteoporosis Sensory hearing loss Skin cancer of anterior chest SCC Surgical History H/O colonoscopy Tubular adenoma H/O parathyroidectomy History of cataract surgery R/L History of lung biopsy 2002 ([facility]), 2006 ([facility]-CAUSED PNEUMOTHROAX[facility] X3 DAYS) FIRST TIME FOR LUNG ABSCESS, SECOND FOR ABNORMAL IMAGING History of placement of ear tubes No longer in place History of prostate biopsy x3 History of surgery Bilateral upper eyelids for drooping Hx of cholecystectomy laparoscopic--Dr. Shah in [place] S/P skin biopsy Mohs surgery for BCC on his face 03/01/2020 Family History Mother , 77yo AAA (abdominal aortic aneurysm) Enlarged heart Alzheimer disease Hypertension Father , 77yo COPD (chronic obstructive pulmonary disease) Hypertension Stroke Sister Hypertension Grandfather (Maternal) Diabetes Other Hyperlipidemia Osteoporosis Thyroid cancer Denies family history of Ovarian cancer Prostate cancer Myocardial infarction Breast cancer Colorectal cancer Social History Smoking Status: Never smoker Second Hand Exposure: Yes (FATHER SMOKED PIPE); Hx Alcohol Use: No Hx Substance Use: No Preferred Language: Citizen Of [place] Communication Ability: Effective Visual Impairment: No Limitations Hearing Ability: Use of Hearing Aid Acid Tender Required: No Beliefs That Will Affect Care: None marital status: Single Current Living Situation: Alone Current Living Situation Comment: sister lives next door current occupational status: disabled Other Information That Helps Us Care for You: No Feels Safe at Home: Yes Safety Concerns: Feels Safe At This Time caffeine: No during the past year weight has: remained stable Dental Care, Regularly: No Physical Activity Frequency: Daily Seatbelt Use: always Assistive Devices: Hearing Aid - Bilateral Review of Systems Constitutional: as per Subjective / HPI; no fever and no chills Eyes: no problem reported Ear, Nose, Mouth, Throat: no dizziness Respiratory: no cough and no dyspnea Cardiovascular: no chest pain and no edema Gastrointestinal: as per Subjective / HPI Genitourinary: + as per Subjective / HPI Musculoskeletal: no back pain Neurologic: no dizziness Psychiatric: as per Subjective / HPI Endocrine: no fatigue Hematologic / Lymphatic: no easy bleeding and no easy bruising Physical Exam Constitutional: well developed and well nourished; no acute distress and not ill appearing ENMT: Ears: no external ear abnormality Nose: no external nose abnormality Neck: normal visual inspection and trachea midline Respiratory: normal respiratory effort and able to speak in complete sentences; no respiratory distress and no audible wheezes Cardiovascular: Extremities: no calf tenderness Gastrointestinal (Abdomen): Inspection/Auscultation: abdomen normal to ins pection; abdomen not distended Percussion/Palpation: abdomen soft; abdomen nontender and no guarding Musculoskeletal: Moves all extremities without difficulty. Skin: No visible rashes, lesions, or wounds noted. Neurologic: moves all extremities and awake Psychiatric: Orientation: alert, oriented to person and cooperative; + not oriented to place and + not oriented to time Affect: euthymic affect Genitourinary: no CVA tenderness [facility] Vital Signs (Past 12 Hours) Vital Signs Temp Pulse Pulse Resp BP BP Pulse Ox 09/05/20 08:02 36.6 C 75 20 148/87 H 92 09/05/20 06:00 76 154/91 H 09/05/20 02:51 37.4 C 72 16 164/100 H 91 09/05/20 02:28 81 22 176/103 H 96 09/05/20 02:00 71 22 171/92 H 94 09/05/20 01:53 74 24 174/95 H 91 09/05/20 00:00 154/86 H 93 09/04/20 23:39 160/97 H 92 09/04/20 22:30 76 20 155/91 H 09/04/20 22:00 78 22 158/100 H 93 09/04/20 21:00 76 23 155/86 H 09/04/20 20:45 78 20 161/88 H PG Care Time/CCT Total # of Minutes Spent Total Time Spent with Patient: Total time spent is greater than 50% in coordination of care (as documented) at patient's floor/unit and/or counseling patient: Coding Level of Care Code 16229 Initial Inpt Care Lvl 2 Diagnoses Urinary tract infection N39.0 Delirium R41.0 Prostate cancer C61
[2020-09-05] MEDS: PIPERACILLIN/TAZOBACTAM 3.375 GM in DEXTROSE 5% 100 ML IV SCH ×2 (09:30→17:41)
--- NOTE | 2020-09-05 11:08 | Electrocardiogram Report ---
Test Reason : Blood Pressure : / mmHG Vent. Rate : 083 BPM Atrial Rate : 083 BPM P-R Int : 182 ms QRS Dur : 096 ms QT Int : 378 ms P-R-T Axes : 074 -44 050 degrees QTc Int : 444 ms Sinus rhythm with occasional Premature ventricular complexes Left axis deviation Abnormal ECG When compared with ECG of 24-AUG-2020 12:39, Premature ventricular complexes are now Present Confirmed by Carlton Robin ([id number]) on 09/05/2020 11:08:11 AM Referred By: REFERRED SELF Confirmed By:Louie Robin
--- NOTE | 2020-09-05 17:36 | Hospitalist Progress Note ---
Date of Service September 05, 2020 Assessment & Plan (1) Delirium: Delirium/confusion-metabolic encephalopathy from prostatis poa did improve some already with treatment, with prostatis will need 4 week course (2) Urinary tract infection: Received Unasyn 3 g IV in the ED. Placed on Zosyn 3.375 g IV every 8 hours NSS + KCl 20 mEq at 100 mils per hour Follow urine culture and sensitivity, negative to date (3) Prostate cancer: Scheduled for radiation seed implant this week. Continue alfuzosin 10 mg p.o. daily and finasteride 5 mg p.o. daily Consult urology Dr. Bolaños (4) Chronic GERD: Continue omeprazole 20 mg p.o. daily (5) Cognitive developmental delay: Admission and Anticipated Discharge Date Admission Date: September 05, 2020 Results & Data Results & Data ([facility]) Vital Signs (Past 12 Hours) Vital Signs Temp Pulse Resp BP Pulse Ox 09/05/20 15:23 98.2 F 69 18 125/75 92 09/05/20 12:13 97.7 F 73 18 126/77 92 09/05/20 08:02 97.9 F 75 20 148/87 H 92 09/05/20 06:00 76 154/91 H PG Care Time/CCT Total # of Minutes Spent Total Time Spent with Patient: Total time spent is greater than 50% in coordination of care (as documented) at patient's floor/unit and/or counseling patient: Coding Level of Care Code None Diagnoses Delirium R41.0 Urinary tract infection N39.0 Prostate cancer C61 Chronic GERD K21.9 Cognitive developmental delay F81.9
--- NOTE | 2020-09-05 18:28 | Hospitalist Progress Note ---
Date of Service September 05, 2020 Assessment & Plan (1) Delirium: Delirium/confusion-metabolic encephalopathy from prostatis poa did improve some already with treatment, with prostatis will need 4 week course Metabolic encephalopathy secondary to utI with presumptive prostatitis (2) Urinary tract infection: Received Unasyn 3 g IV in the ED. Placed on Zosyn 3.375 g IV every 8 hours NSS + KCl 20 mEq at 100 mils per hour Follow urine culture and sensitivity, negative to date (3) Prostate cancer: Scheduled for radiation seed implant this week. Continue alfuzosin 10 mg p.o. daily and finasteride 5 mg p.o. daily Consult urology Dr. Bolaños (4) Chronic GERD: Continue omeprazole 20 mg p.o. daily (5) Cognitive developmental delay: Admission and Anticipated Discharge Date Admission Date: September 05, 2020 Results & Data Results & Data ([facility]) Vital Signs (Past 12 Hours) Vital Signs Temp Pulse Resp BP Pulse Ox 09/05/20 15:23 98.2 F 69 18 125/75 92 09/05/20 12:13 97.7 F 73 18 126/77 92 09/05/20 08:02 97.9 F 75 20 148/87 H 92 PG Care Time/CCT Total # of Minutes Spent Total Time Spent with Patient: Total time spent is greater than 50% in coordination of care (as documented) at patient's floor/unit and/or counseling patient: Coding Level of Care Code None Diagnoses Delirium R41.0 Urinary tract infection N39.0 Prostate cancer C61 Chronic GERD K21.9 Cognitive developmental delay F81.9
[2020-09-05] MEDS: CETIRIZINE HCL 10 MG TABLET PO SCH (21:05)
[2020-09-05] MEDS: CHOLECALCIFEROL 1,000 UNITS 25 MCG TAB PO SCH (21:06)
[2020-09-06] MEDS: NSS + 20MEQ KCL 20 MEQ/1,000 ML BAG IV SCH ×3 (00:11→17:59)
[2020-09-06] MEDS: PIPERACILLIN/TAZOBACTAM 3.375 GM in DEXTROSE 5% 100 ML IV SCH ×3 (02:39→17:58)
[2020-09-06] MEDS: ALFUZOSIN HCL 10 MG TAB PO SCH (07:51)
[2020-09-06] MEDS: HEPARIN SOD 5,000 UNIT/0.5 ML VIAL SQ SCH ×2 (07:51→20:34)
[2020-09-06] MEDS: FINASTERIDE 5 MG TAB PO SCH (07:51)
[2020-09-06] MEDS: ERYTHROMYCIN OP OINT 5 MG/GM 3.5 GM TUBE OPL SCH ×3 (07:51→20:27)
[2020-09-06] MEDS: PANTOprazole 40 MG TAB PO SCH (07:51)
--- NOTE | 2020-09-06 09:32 | Urology Progress Note ---
Date of Service September 06, 2020 Assessment & Plan (1) Urinary tract infection: (2) Prostate cancer: (3) Delirium: 75 year-old male patient, with multiple comorbidities, admitted with altered mental status felt likely due to UTI with presumed prostatitis. -Patient remains afebrile. -Preliminary blood cultures no growth after 24 hours. -Urinalysis suspicious for UTI, urine culture pending. -Continue with broad-spectrum antibiotic therapy and supportive care, follow cultures. -Brachytherapy initially scheduled this week, postponed due to infection. -Recommend treating patient for presumed prostatitis with 4-week total antibiotic duration. -Will plan to reschedule brachytherapy as outpatient after treatment of acute infection. -Continue to follow peripherally while inpatient. Thank you for allowing us to participate in the acute care of Mr. Jaeger. Please contact us with additional questions, concerns or changes in patient status. Admission and Anticipated Discharge Date Admission Date: September 05, 2020 Supervising Physician Co-Signing Physician Notes Agree with plan Subjective Patient out of bed at time of assessment ambulating from bathroom. Subjectively, he reports he is feeling "good". Denies pain. Feels he is urinating "fine". Denies dysuria, hematuria, urgency, or frequency. Denies fevers or chills. Per nursing, patient has been attempting to get out of bed all morning without assistance. He is alert to person only this morning. Chart review: Afebrile Labs reviewed 09/04 - Wbc 3.69 Hgb 12.2 Creatinine 1.38 Urinalysis >30 wbc, >30 rbc, +4 bacteria, nitrate positive. Urine culture from 08/29 showing high counts of probable skin reece. 09/04 urine culture pending. Preliminary blood culture no growth after 24 hours- currently on IV Zosyn. Prostate cancer: Prostate biopsyJun2019 MRI with a PI-RADS 5 lesion occupying essentially the full left side of the prostate Targeted biopsies performed as well as a full template of standard biopsies PSA 11.9 [place] 4+4 = 8 prostate cancermixed ductal and acinar adenocarcinoma. Denies additional urologic concerns today. Review of Systems Constitutional: as per Subjective / HPI; no fever and no chills Gastrointestinal: as per Subjective / HPI Genitourinary: + as per Subjective / HPI Psychiatric: as per Subjective / HPI Physical Exam Constitutional: well developed and well nourished; no acute distress and not ill appearing Neck: normal visual inspection and trachea midline Respiratory: normal respiratory effort and able to speak in complete sentences; no respiratory distress and no audible wheezes Cardiovascular: Extremities: no calf tenderness and no edema Gastrointestinal (Abdomen): Inspection/Auscultation: abdomen normal to inspection; abdomen not distended Percussion/Palpation: abdomen soft; abdomen nontender and no guarding Neurologic: moves all extremities and awake Psychiatric: Orientation: alert, oriented to person and cooperative; + not oriented to place and + not oriented to time Affect: euthymic affect Genitourinary: no CVA tenderness Results & Data ([facility]) Vital Signs (Past 12 Hours) Vital Signs Temp Pulse Resp BP Pulse Ox 09/06/20 07:28 36.7 C 70 18 153/90 H 92 09/06/20 03:40 36.7 C 75 18 160/88 H 88 L 09/05/20 23:15 36.7 C 74 20 146/82 H 92 PG Care Time/CCT Total # of Minutes Spent Total Time Spent with Patient: Total time spent is greater than 50% in coordination of care (as documented) at patient's floor/unit and/or counseling patient: Coding Level of Care Code 36739 Subseq Hosp Care Lvl 2 Diagnoses Urinary tract infection N39.0 Prostate cancer C61 Delirium R41.0
[2020-09-06] MEDS ORDERED: LINEZOLID CONSULT ACTIVE PRN (16:02)
--- NOTE | 2020-09-06 16:10 | Hospitalist Progress Note ---
Date of Service September 06, 2020 Assessment & Plan (1) Delirium: Delirium/confusion-metabolic encephalopathy from prostatis poa did improve some already with treatment, with prostatis will need 4 week course Metabolic encephalopathy secondary to utI with presumptive prostatitis (2) Urinary tract infection: Received Unasyn 3 g IV in the ED. Placed on Zosyn 3.375 g IV every 8 hours for sinusitis NSS + KCl 20 mEq at 100 mils per hour Follow urine culture and sensitivity, preliminary staph, will use linezolid at this point since still fairly confused (3) Prostate cancer: Scheduled for radiation seed implant this week. Continue alfuzosin 10 mg p.o. daily and finasteride 5 mg p.o. daily Consult urology Dr. Bolaños follows for Prostate cancer: Prostate biopsyJun2019 MRI with a PI-RADS 5 lesion occupying essentially the full left side of the prostate Targeted biopsies performed as well as a full template of standard biopsies PSA 11.9 [place] 4+4 = 8 prostate cancermixed ductal and acinar adenocarcinoma. (4) Chronic GERD: Continue omeprazole 20 mg p.o. daily (5) Cognitive developmental delay: Admission and Anticipated Discharge Date Admission Date: September 05, 2020 Subjective Patient out of bed at time of assessment ambulating from bathroom. Subjectively, he reports he is feeling "good". Denies pain. Feels he is urinating "fine". urine >[id number] staph Preliminary blood culture no growth after 24 hours- currently on IV Zosyn. Results & Data Results & Data ([facility]) Vital Signs (Past 12 Hours) Vital Signs Temp Pulse Resp BP Pulse Ox 09/06/20 15:12 98.1 F 70 18 156/82 H 93 09/06/20 11:10 97.9 F 79 18 130/88 92 09/06/20 07:28 98.1 F 70 18 153/90 H 92 PG Care Time/CCT Total # of Minutes Spent Total Time Spent with Patient: Total time spent is greater than 50% in c oordination of care (as documented) at patient's floor/unit and/or counseling patient: Coding Level of Care Code 23012 Subseq Hosp Care Lvl 2 Diagnoses Delirium R41.0 Urinary tract infection N39.0 Prostate cancer C61 Chronic GERD K21.9 Cognitive developmental delay F81.9
[2020-09-06] MEDS: LINEZOLID 600 MG TAB PO SCH ×2 (17:56→22:22)
[2020-09-06] MEDS: CHOLECALCIFEROL 1,000 UNITS 25 MCG TAB PO SCH (20:26)
[2020-09-06] MEDS: CETIRIZINE HCL 10 MG TABLET PO SCH (20:27)
[2020-09-07] MEDS: PIPERACILLIN/TAZOBACTAM 3.375 GM in DEXTROSE 5% 100 ML IV SCH ×3 (01:28→17:16)
[2020-09-07] MEDS: NSS + 20MEQ KCL 20 MEQ/1,000 ML BAG IV SCH ×2 (04:50→13:58)
[2020-09-07] MEDS: LINEZOLID 600 MG TAB PO SCH ×2 (07:58→20:10)
[2020-09-07] MEDS: FINASTERIDE 5 MG TAB PO SCH (07:58)
[2020-09-07] MEDS: PANTOprazole 40 MG TAB PO SCH (07:58)
[2020-09-07] MEDS: ALFUZOSIN HCL 10 MG TAB PO SCH (07:58)
[2020-09-07] MEDS: ERYTHROMYCIN OP OINT 5 MG/GM 3.5 GM TUBE OPL SCH ×3 (07:59→20:09)
[2020-09-07] MEDS: HEPARIN SOD 5,000 UNIT/0.5 ML VIAL SQ SCH ×2 (07:59→20:09)
[2020-09-07 08:11] LABS: Creatinine Clr Calc Pharmacy 41.9 ml/min; Est GFR (African American) 69.8; Est GFR (Non-African American) 60.2
--- NOTE | 2020-09-07 17:38 | Hospitalist Progress Note ---
Date of Service September 07, 2020 Assessment & Plan (1) Delirium: Delirium/confusion-metabolic encephalopathy from prostatis poa did improve some already with treatment, with prostatis will need 4 week course Metabolic encephalopathy secondary to utI with presumptive prostatitis, staph is identified (2) Urinary tract infection: Received Unasyn 3 g IV in the ED. Placed on Zosyn 3.375 g IV every 8 hours for sinusitis Follow urine culture and sensitivity, preliminary staph, will use linezolid at this point since still fairly confused (3) Prostate cancer: Scheduled for radiation seed implant this week. Continue alfuzosin 10 mg p.o. daily and finasteride 5 mg p.o. daily Consult urology Dr. Bolaños follows for Prostate cancer: Prostate biopsyJun2019 MRI with a PI-RADS 5 lesion occupying essentially the full left side of the prostate Targeted biopsies performed as well as a full template of standard biopsies PSA 11.9 [place] 4+4 = 8 prostate cancermixed ductal and acinar adenocarcinoma. (4) Chronic GERD: Continue omeprazole 20 mg p.o. daily (5) Cognitive developmental delay: Admission and Anticipated Discharge Date Admission Date: September 05, 2020 Subjective Patient out of bed at time of assessment ambulating from bathroom. Subjectively, he reports he is feeling "good". Denies pain. he continues to urinate easily urine >[id number] staph Preliminary blood culture no growth after 24 hours- currently po linezolid to cover all staph species Review of Systems Review of Systems: Unobtainable due to cognitive status Physical Exam Physical Exam: The patient appeared well nourished and normally developed. Vital signs as documented. Head exam is normocephalic atraumatic no scleral icterus Neck is without JVD, thyromegaly, or carotid bruits. Lungs are clear to auscultation, no focal loss of breath sounds Cardiac exam, Rhythm is regular.. No murmurs, rubs or gallops. Abdominal exam reveals normal bowel sounds, soft non tender, no masses Extremities are nonedematous and both pedal pulses are present Neurologic exam is alert and follows commands Skin is without bruises or rashes Psychologically is with concerns some memory issues Results & Data Results [facility]) Vital Signs (Past 12 Hours) Vital Signs Temp Pulse Resp BP BP Pulse Ox 12/02/20 15:54 99.0 F 78 18 169/90 H 93 09/07/20 08:00 97.7 F 64 16 149/85 H 93 PG Care Time/CCT Total # of Minutes Spent Total Time Spent with Patient: Total time spent is greater than 50% in coordination of care (as documented) at patient's floor/unit and/or counseling patient: Coding Level of Care Code 19191 Subseq Hosp Care Lvl 2 Diagnoses Delirium R41.0 Urinary tract infection N39.0 Prostate cancer C61 Chronic GERD K21.9 Cognitive developmental delay F81.9
[2020-09-07] MEDS: CHOLECALCIFEROL 1,000 UNITS 25 MCG TAB PO SCH (20:09)
[2020-09-07] MEDS: CETIRIZINE HCL 10 MG TABLET PO SCH (20:09)
[2020-09-08] MEDS: NSS + 20MEQ KCL 20 MEQ/1,000 ML BAG IV SCH ×3 (00:05→19:58)
[2020-09-08 07:35] LABS: Hematocrit (blood only) 40.3 % (42-52); Hemoglobin 14.1 g/dL (14.0-18.0); Mean Corpuscular Volume 91.6 fL (80-100); Mean Platelet Volume 9.8 fL (7.4-10.4); Platelet Count 135 K/uL (130-400); RDW Coefficient of Variation 12.1 % (11.5-14.5); RDW Standard Deviation 40.7 fL (36.4-46.3); White Blood Count 5.97 K/uL (4.8-10.8)
[2020-09-08 08:01] LABS: Calcium 9.6 mg/dl (8.5-10.1); Creatinine Clr Calc Pharmacy 41.6 ml/min; Est GFR (African American) 69.1; Est GFR (Non-African American) 59.6; Potassium 4.1 mmol/L (3.5-5.1)
[2020-09-08] MEDS: FINASTERIDE 5 MG TAB PO SCH (08:10)
[2020-09-08] MEDS: PANTOprazole 40 MG TAB PO SCH (08:10)
[2020-09-08] MEDS: ALFUZOSIN HCL 10 MG TAB PO SCH (08:10)
[2020-09-08] MEDS: HEPARIN SOD 5,000 UNIT/0.5 ML VIAL SQ SCH ×2 (08:10→20:01)
[2020-09-08] MEDS: ERYTHROMYCIN OP OINT 5 MG/GM 3.5 GM TUBE OPL SCH ×3 (08:10→20:02)
[2020-09-08] MEDS: LINEZOLID 600 MG TAB PO SCH (08:10)
[2020-09-08] MEDS: DICLOFENAC SOD 1% GEL 100 GM TUBE EXT SCH ×2 (13:39→20:02)
--- NOTE | 2020-09-08 13:43 | Hospitalist Progress Note ---
Date of Service September 08, 2020 Assessment & Plan (1) Delirium: Delirium/confusion-metabolic encephalopathy from prostatis poa did improve some already with treatment, with prostatis will need 4 week course Metabolic encephalopathy secondary to utI with presumptive prostatitis, staph is identified (2) Urinary tract infection: Received Unasyn 3 g IV in the ED. Staph , mssa, will have on Keflex for 4 weeks (3) Prostate cancer: Scheduled for radiation seed implant this week. Continue alfuzosin 10 mg p.o. daily and finasteride 5 mg p.o. daily Consult urology Dr. Bolaños follows for Prostate cancer: Prostate biopsyJun2019 MRI with a PI-RADS 5 lesion occupying essentially the full left side of the prostate Targeted biopsies performed as well as a full template of standard biopsies PSA 11.9 [place] 4+4 = 8 prostate cancermixed ductal and acinar adenocarcinoma. (4) Chronic GERD: Continue omeprazole 20 mg p.o. daily (5) Cognitive developmental delay: (6) Knee effusion: left knee effusion is painful, causing ambulation difficulty, will have ortho evaluation. Volatern gel and ice Admission and Anticipated Discharge Date Admission Date: September 05, 2020 Subjective Patient out of bed at time of assessment ambulating from bathroom. Subjectively, he reports he is feeling "good". Denies pain. he continues to urinate easily urine >[id number] staph aureus, will have on Cephalexin for 4 weeks Review of Systems Review of Systems: Unobtainable due to cognitive status Physical Exam Physical Exam: The patient appeared well nourished and normally developed. Vital signs as documented. Head exam is normocephalic atraumatic no scleral icterus Neck is without JVD, thyromegaly, or carotid bruits. Lungs are clear to auscultation, no focal loss of breath sounds Cardiac exam, Rhythm is regular.. No murmurs, rubs or gallops. Abdominal exam reveals normal bowel sounds, soft non tender, no masses Extremity left knee effusion, will have orthopedic evaluation Neurologic exam is alert and follows commands Skin is without bruises or rashes Psychologically is with concerns some memory issues Results & Data Results & Data ([facility]) Vital Signs (Past 12 Hours) Vital Signs Temp Pulse Resp BP Pulse Ox 09/08/20 07:13 98.4 F 83 16 177/86 H 92 PG Care Time/CCT Total # of Minutes Spent Total Time Spent with Patient: Total time spent is greater than 50% in coordination of care (as documented) at patient's floor/unit and/or counseling patient: Coding Level of Care Code 42851 Subseq Hosp Care Lvl 2 Diagnoses Delirium R41.0 Urinary tract infection N39.0 Prostate cancer C61 Chronic GERD K21.9 Cognitive developmental delay F81.9 Knee effusion M25.469
[2020-09-08] MEDS ORDERED: BUPIVACAINE/EPINEPHRINE 0.25% 1:200,000 30 ML VIAL INFIL ONE (13:46)
[2020-09-08] MEDS ORDERED: TRIAMCINOLONE ACET 40 MG/ML VIAL IA ONE (13:46)
--- NOTE | 2020-09-08 13:52 | Orthopedic Consultation ---
Date of Consultation September 08, 2020 Assessment & Plan (1) Knee effusion: He does have a large left knee effusion. He is a poor historian. We will go to get an x-ray of his left knee and then I will likely set him up with an aspiration and injection of the left knee. I want to see what the x-rays look like first and then I want a get full synovial fluid analysis to help figure out why is knee is swollen. He can currently be weightbearing as tolerated. Present on Admission?: Yes History of Present Illness Reason for Consultation: Left knee effusion Attending Physician: Fabio Drummond MD History of Present Illness Leonel is a pleasant 75-year-old male whose been dealing with left knee pain. According to the patient, he has been dealing with the pain for several years. However, he does have dementia and according to the nurse he has only been complaining of knee pain recently. He has a large effusion of his left knee. Is difficult to get an accurate history with him. According to his sister, he walks a mile every day to her house. According to the nurse, she has had a difficult time getting him up out of bed. He does not seem to want to put any weight on either knee. He has a large left knee effusion. Orthopedics was consulted to evaluate and treat. Allergies Allergy/AdvReac Type Severity Reaction Status Date / Time alendronate sodium Allergy Intermediate nausea Verified 09/04/20 21:58 tamsulosin Allergy Intermediate nausea Verified 09/04/20 21:58 Home Medications Medication Instructions Recorded Confirmed Type cetirizine 10 mg capsule 10 mg PO QPM cap 04/28/20 09/04/20 History cholecalciferol (vitamin D3) 25 2,000 unit PO QPM tab 05/09/20 09/04/20 History mcg (1,000 unit) tablet alfuzosin 10 mg PO DAILY 08/17/20 09/04/20 History calcium carbonate [Tums Ultra] 400 mg PO QPM 08/17/20 09/04/20 History finasteride 5 mg PO DAILY 08/17/20 09/04/20 History ibuprofen 400 mg PO BID PRN 08/17/20 09/04/20 History erythromycin 1 applic OPL TID 09/04/20 09/04/20 History leuprolide (3 month) [Eligard (3 22.5 mg SUBCUT DIRECTED 09/04/20 09/04/20 History month)] omeprazole 20 mg PO QAM 09/04/20 09/04/20 History cephalexin 500 mg PO BID #52 cap 09/08/20 Rx diclofenac sodium [Voltaren 2 g TOPICAL QID #100 g 09/08/20 Rx Arthritis Pain] Patient History Medical History Asthma no inhaler Atrophy of left kidney Bladder diverticulum Cerebral palsy per records, sister (Lo) denies Chronic GERD Cognitive developmental delay Diffuse nontoxic goiter Diverticulosis Enlarged prostate without lower urinary tract symptoms (luts) Esophageal dysmotility Gait disturbance Hyperlipidemia Hyperparathyroidism Intellectual disability lives alone/independently, able to read/write, sister lives next door (legal guardian) Nephrolithiasis Osteoporosis Sensory hearing loss Skin cancer of anterior chest SCC Surgical History H/O colonoscopy Tubular adenoma H/O parathyroidectomy History of cataract surgery R/L History of lung biopsy 2002 ([facility]), 2005 ([facility] X[facility] DA[facility]) FIRST TIME FOR LUNG ABSCESS, SECOND FOR ABNORMAL IMAGING History of placement of ear tubes No longer in place History of prostate biopsy x3 History of surgery Bilateral upper eyelids for drooping Hx of cholecystectomy laparoscopic--Dr. Shah in [place] S/P skin biopsy Mohs surgery for BCC on his face 03/01/2020 Family History Mother , 77yo AAA (abdominal aortic aneurysm) Enlarged heart Alzheimer disease Hypertension Father , 77yo COPD (chronic obstructive pulmonary disease) Hypertension Stroke Sister Hypertension Grandfather (Maternal) Diabetes Other Hyperlipidemia Osteoporosis Thyroid cancer Denies family history of Ovarian cancer Prostate cancer Myocardial infarction Breast cancer Colorectal cancer Social History Smoking Status: Never smoker Second Hand Exposure: Yes (FATHER SMOKED PIPE); Hx Alcohol Use: No Hx Substance Use: No Preferred Language: Venezuelan Communication Ability: Impaired Visual Impairment: No Limitations Hearing Ability: Use of Hearing Aid Rejector Required: No Beliefs That Will Affect Care: None marital status: Single Current Living Situation: Alone Current Living Situation Comment: sister lives next door current occupational status: disabled Other Information That Helps Us Care for You: No Feels Safe at Home: Yes Safety Concerns: Feels Safe At This Time caffeine: No during the past year weight has: remained stable Dental Care, Regularly: No Physical Activity Frequency: Daily Seatbelt Use: always Assistive Devices: Walker Review of Systems Review of Systems: All systems reviewed & are unremarkable except as noted in HPI & below Physical Exam Physical Exam: On physical examination of the left knee, there is a 2+ effusion. There is no redness or signs of infection. His range of motion from 10 to 90 degrees which is limited by the effusion. He does not have much pain with passive range of motion of the knee. Constitutional: WD/WN, vitals as above Eyes: PERRL, conjunctivae normal, anicteric sclerae ENMT: external ear and nose normal, oropharynx normal Neck: trachea midline, no thyromegaly Respiratory: normal respiratory effort Cardiovascular: RRR, no murmur, no edema Gastrointestinal (Abdomen): normal bowel sounds, soft, nontender, no hepatosplenomegaly Psychiatric: A+Ox3, euthymic affect Results & Data ([facility]) Vital Signs (Past 12 Hours) Vital Signs Temp Pulse Resp BP Pulse Ox 09/08/20 07:13 36.9 C 83 16 177/86 H 92 PG Care Time/CCT Total # of Minutes Spent Total Time Spent with Patient: Total time spent is greater than 50% in coordination of care (as documented) at patient's floor/unit and/or counseling patient: Coding Level of Care Code 90769 Initial Inpt Care Lvl 2 Diagnoses Knee effusion M25.469
--- NOTE | 2020-09-08 14:41 | XRay Report ---
XR knee LT 1 or 2V routine CLINICAL HISTORY: Left knee effusion. COMPARISON STUDY: None. FINDINGS: No fracture or dislocation within the left knee. Soft tissues are osteopenic. Moderate to l arge suprapatellar knee effusion. Chondrocalcinosis. Mild tricompartmental osteoarthritis. Vascular c alcifications are noted. Valgus angulation of the left knee. IMPRESSION: 1. Moderate to large knee effusion. 2. Chondrocalcinosis. 3. Mildly tricompartmental osteoarthritis. ACT 112: Negative or not required by law. Electronically signed by: Sam Parker M.D. 09/08/2020 2:39 PM
[2020-09-08] MEDS ORDERED: LIDOCAINE/EPINE 2% 1:100,000 20ML INFIL ONE (14:45)
[2020-09-08 16:41] LABS: Appearance Synovial Fluid HAZY; Color Synovial Fluid YELLOW; Mononuclear WBC Synovial 12.9 %; Polynuclear WBC Synovial 87.1 %; RBC Synovial Fluid (A) < 3000 /uL; Source Synovial Fluid KNEE; WBC Synovial Fluid (A) 10352 /ul (0-200)
[2020-09-08] MEDS: CETIRIZINE HCL 10 MG TABLET PO SCH (20:00)
[2020-09-08] MEDS: CHOLECALCIFEROL 1,000 UNITS 25 MCG TAB PO SCH (20:00)
[2020-09-08] MEDS: cephALEXin 500 MG CAP PO SCH (20:00)
[2020-09-09] MEDS: NSS + 20MEQ KCL 20 MEQ/1,000 ML BAG IV SCH ×2 (05:46→15:37)
--- NOTE | 2020-09-09 09:20 | Orthopedic Progress Note ---
Date of Service September 09, 2020 Assessment & Plan (1) Knee effusion: The knee x-ray shows some arthritis. The knee aspiration did show 10,000 white blood cells. This is certainly not in the infection range but it does indicate an inflammatory arthropathy. Not sure if it is just purely in flammation from the arthritis or there could be a gout component or possibly Lyme's. I am still waiting for crystals to come back in the final Lyme PCR from the synovial fluid. Right now he can be weightbearing as tolerated on the left knee. We will see what the final analysis shows. I gave him a cortisone injection in the left knee yesterday. Present on Admission?: Yes Admission and Anticipated Discharge Date Admission Date: September 05, 2020 Alberto Che was seen and examined at bedside. His knee pain is improved. He still is a slight effusion of his left knee. He has not been ambulating on it much since I drained it yesterday. Overall he is doing better. Physical Exam Physical Exam: On physical examination of the left knee, there is a's trace effusion. He has range of motion from about 10 to 90 degrees. I cannot get out to full extension. He has much less pain than he had yesterday. Results & Data ([facility]) Vital Signs (Past 12 Hours) Vital Signs Temp Pulse Resp BP BP Pulse Ox 09/09/20 07:47 37.1 C 78 16 140/85 92 09/08/20 23:31 36.9 C 82 16 152/82 H 93 Diagnostic Findings X-rays of the left knee do show advanced osteoarthritis with joint space narrowing, and osteophyte formation. Is mostly involving the lateral compartment. There appears to be a little bit of hypoplasia of the lateral femoral condyle which may be leading to some of the valgus deformity. PG Care Time/CCT Total # of Minutes Spent Total Time Spent with Patient: Total time spent is greater than 50% in coordination of care (as documented) at patient's floor/unit and/or counseling patient: Coding Level of Care Code 29844 Subseq Hosp Care Lvl 1 Diagnoses Knee effusion M25.469
[2020-09-09] MEDS: cephALEXin 500 MG CAP PO SCH ×2 (09:30→21:33)
[2020-09-09] MEDS: ALFUZOSIN HCL 10 MG TAB PO SCH (09:30)
[2020-09-09] MEDS: FINASTERIDE 5 MG TAB PO SCH (09:30)
[2020-09-09] MEDS: ERYTHROMYCIN OP OINT 5 MG/GM 3.5 GM TUBE OPL SCH ×3 (09:31→21:30)
[2020-09-09] MEDS: HEPARIN SOD 5,000 UNIT/0.5 ML VIAL SQ SCH ×2 (09:32→21:30)
[2020-09-09] MEDS: DICLOFENAC SOD 1% GEL 100 GM TUBE EXT SCH ×3 (09:35→21:31)
[2020-09-09] MEDS: PANTOprazole 40 MG TAB PO SCH (10:09)
--- NOTE | 2020-09-09 13:53 | Hospitalist Progress Note ---
Date of Service September 09, 2020 Assessment & Plan (1) Delirium: Delirium/confusion-metabolic encephalopathy from prostatis poa Resolved with treatment, with prostatis will need 4 week course Metabolic encephalopathy secondary to utI with presumptive prostatitis, staph is identified (2) Urinary tract infection: Received Unasyn 3 g IV in the ED. Staph , mssa, will have on Keflex for 4 weeks (3) Prostate cancer: Scheduled for radiation seed implant this week. Continue alfuzosin 10 mg p.o. daily and finasteride 5 mg p.o. daily Consult urology Dr. Bolaños follows for Prostate cancer: Prostate biopsyJun2019 MRI with a PI-RADS 5 lesion occupying essentially the full left side of the prostate Targeted biopsies performed as well as a full template of standard biopsies PSA 11.9 [place] 4+4 = 8 prostate cancermixed ductal and acinar adenocarcinoma. (4) Chronic GERD: Continue omeprazole 20 mg p.o. daily (5) Cognitive developmental delay: (6) Knee effusion: left knee effusion is painful, causing ambulation difficulty, did have aspiration no crystals were seen white blood cell count is 10,000 but not up c onsistent with infection only pending test is Lyme DNA, orthopedic did consult they gave cortisone infusion into his knee, continue Volatern gel and ice awaiting physical therapy evaluation DVT prevention is early ambulation and SCDs Admission and Anticipated Discharge Date Admission Date: September 05, 2020 Subjective Patient out of bed at time of assessment ambulating from bathroom. Subjectively, he reports he is feeling "good". his knee feels much better still awaiting re evaluation of PT he continues to urinate easily urine >[id number] staph aureus, will have on Cephalexin for 4 weeks Review of Systems Review of Systems: Mild distress and fatigue no headache, blurry or double vision no speech or swallowing issues no chest pain, pressure or palpitations no shortness of breath, cough or wheezes no abdominal pain, nausea or vomiting, diarrhea or constipation no dysuria, hematuria or frequency Improved left knee swelling and pain no back pain, CVA tenderness or radicular pain no bruising, bleeding or rashes no focal signs of weakness or numbness or altered sensation no complaints of anxiety or depression. Physical Exam Physical Exam: The patient appeared well nourished and normally developed. Vital signs as documented. Head exam is normocephalic atraumatic no scleral icterus Neck is without JVD, thyromegaly, or carotid bruits. Lungs are clear to auscultation, no focal loss of breath sounds Cardiac exam, Rhythm is regular.. No murmurs, rubs or gallops. Abdominal exam reveals normal bowel sounds, soft non tender, no masses Extremity left knee effusion is dramatically reduced after orthopedic evaluation and aspiration of effusion Neurologic exam is alert and follows commands Skin is without bruises or rashes Psychologically is with concerns some memory issues Results & Data Results & Data ([facility]) Vital Signs (Past 12 Hours) Vital Signs Temp Pulse Resp BP Pulse Ox 09/09/20 07:47 98.8 F 78 16 140/85 92 PG Care Time/CCT Total # of Minutes Spent Total Time Spent with Patient: Total time spent is greater than 50% in coordinat ion of care (as documented) at patient's floor/unit and/or counseling patient: Coding Level of Care Code 45950 Subseq Hosp Care Lvl 2 Diagnoses Delirium R41.0 Urinary tract infection N39.0 Prostate cancer C61 Chronic GERD K21.9 Cognitive developmental delay F81.9 Knee effusion M25.469
[2020-09-09] MEDS: CHOLECALCIFEROL 1,000 UNITS 25 MCG TAB PO SCH (21:33)
[2020-09-09] MEDS: CETIRIZINE HCL 10 MG TABLET PO SCH (21:33)
[2020-09-10] MEDS: NSS + 20MEQ KCL 20 MEQ/1,000 ML BAG IV SCH (01:40)
[2020-09-10 04:55] LABS: Hematocrit (blood only) 36.5 % (42-52); Hemoglobin 12.5 g/dL (14.0-18.0); Mean Corpuscular Hgb Conc 34.2 g/dL (32-36); Mean Corpuscular Volume 93.4 fL (80-100); Platelet Count 133 K/uL (130-400); RDW Coefficient of Variation 12.7 % (11.5-14.5); RDW Standard Deviation 43.7 fL (36.4-46.3); Red Blood Count 3.91 M/uL (4.7-6.1)
[2020-09-10] MEDS: ERYTHROMYCIN OP OINT 5 MG/GM 3.5 GM TUBE OPL SCH ×2 (09:00→14:00)
[2020-09-10] MEDS: PANTOprazole 40 MG TAB PO SCH (09:00)
[2020-09-10] MEDS: cephALEXin 500 MG CAP PO SCH (09:00)
[2020-09-10] MEDS: FINASTERIDE 5 MG TAB PO SCH (09:00)
[2020-09-10] MEDS: ALFUZOSIN HCL 10 MG TAB PO SCH (09:00)
[2020-09-10] MEDS: DICLOFENAC SOD 1% GEL 100 GM TUBE EXT SCH ×2 (09:00→14:00)
--- NOTE | 2020-09-10 17:16 | Discharge Summary ---
Date of Service September 10, 2020 Admission HPI Per Admitting Provider The patient is a 75-year-old male with a past medical history including cognitive developmental delay, prostate cancer, esophageal dysmotility, chronic GERD, thrombocytopenia, and hyperlipidemia. The patient is reportedly scheduled for radiation seed placement for prostate cancer in 3 days, having recently seen Dr. Bolaños. He also recently had eye surgeries, and for this reason has been staying with his sister to help with his medical care. She reports that he has had several episodes of 20-minute duration confusion and change in his speech pattern. She reports that he has had some occasional urinary incontinence. He recently had a negative Covid test. Principal Diagnosis MSSA prostatitis Left knee effusion status post drain felt to be inflammatory noninfectious Discharge Exam The patient appeared well Vital signs as documented. Lungs are clear to auscultation and appear unlabored Cardiac exam, Rhythm is regular.. No murmurs, rubs or gallops. Abdominal exam reveals normal bowel sounds, soft non tender, no masses Extremities both knees with very little residual effusion ambulating in his room without issues Neurologic exam is alert and oriented, no focal loss of strength or sensation Skin is without bruises or rashes Psychologically is with concerns for developmental delay Discharge Data Allergies Allergy/AdvReac Type Severity Reaction Status Date / Time alendronate sodium Allergy Intermediate nausea Verified 09/04/20 21:58 tamsulosin Allergy Intermediate nausea Verified 09/04/20 21:58 Consultations 09/05/20 00:51 ED Decision to Admit Stat 09/05/20 02:51 Consult Case Management - Discharge Planning Routine Consult Urology Routine 09/08/20 13:26 Consult Orthopedic Surgery Routine Ordered Studies 09/04/20 20:22 CT head/brain wo con Urgent Hospital Course (1) Delirium: Delirium/confusion-metabolic encephalopathy from prostatis poa/resolved Resolved with treatment, with prostatis will need 4 week course remain Keflex 500 twice daily Metabolic encephalopathy secondary to utI with presumptive prostatitis, staph is identified (2) Urinary tract infection: Received Unasyn 3 g IV in the ED. Staph , mssa, will have on Keflex for 4 weeks (3) Prostate cancer: Scheduled for radiation seed implant this week. Continue alfuzosin 10 mg p.o. daily and finasteride 5 mg p.o. daily Consult urology Dr. Bolaños follows for Prostate cancer: Prostate biopsyJune 2019 MRI with a PI-RADS 5 lesion occupying essentially the full left side of the prostate Targeted biopsies performed as well as a full template of standard biopsies PSA 11.9 [place] 4+4 = 8 prostate cancermixed ductal and acinar adenocarcinoma. (4) Chronic GERD: Continue omeprazole 20 mg p.o. daily (5) Cognitive developmental delay: (6) Knee effusion: left knee effusion is painful, causing ambulation difficulty, did have aspiration no crystals were seen white blood cell count is 10,000 but not up consistent with infection only pending test is Lyme DNA, orthopedic did consult they gave cortisone infusion into his knee, continue Volatern gel and recommend following up with Dr. August Total Time Total Time Spent Total Time Spent (In Minutes): Discharge 30 including a lengthy conversation with his sister whom he is going to live with for the next few days Discharge Plan Discharge Items Patient Disposition: Home - Home Health Services Reason For Visit: DELIRIUM, PROSTATITIS Discharge Diagnosis: prostatis Activity: Per Instructions section Activity Comment: careful walking Non-emergency contact: Primary Care Provider Call non-emergency contact if: you have any medication questions and your symptoms worsen Follow-up/Referrals: Carlos Dasilva MD [Primary Care Provider] - Diet: Regular Addtl Attending Provider Instructions: You have infection of your prostate will require 4 weeks of antibiotic therapy. I would recommend following up with the urologist as previously scheduled You have significant arthritic change to your left knee including a mild amount of fluid on your knee. We are going to try some cream that contains anti- inflammatory medication. You may eventually need to have this knee drained by your family doctor or mechanical technical service specialist. You may wish to place ice on your knee to try to help reduce the discomfort also Pending Studies at Discharge: No Stand-Alone Forms: My [facility] XtremIO, Smoking Cessation Medications and DC Order Prescriptions: New cephalexin 500 mg Capsule 500 mg PO BID Qty: 52 RF: 0 diclofenac sodium [Voltaren Arthritis Pain] 1 % gel 2 g topical QID Qty: 100 RF: 0 Continued All Day Allergy (cetirizine) 10 mg capsule 10 mg PO QPM RF: 0 cholecalciferol (vitamin D3) 25 mcg (1,000 unit) tablet 2,000 unit PO QPM RF: 0 calcium carbonate [Tums Ultra] 400 mg calcium (1,000 mg) Tablet,Chewable 400 mg PO QPM RF: 0 finasteride 5 mg tablet 5 mg PO DAILY RF: 0 alfuzosin 10 mg tablet extended release 24 hr 10 mg PO DAILY RF: 0 ibuprofen 200 mg Capsule 400 mg PO BID PRN (Reason: Pain) RF: 0 omeprazole 20 mg capsule,delayed release(DR/EC) 20 mg PO QAM RF: 0 Eligard (3 month) 22.5 mg syringe 22.5 mg subcut DIRECTED RF: 0 erythromycin 5 mg/gram (0.5 %) ointment 1 applic OPL TID RF: 0 Admission Data Admit Date/Time: 09/05/20 01:36 Attending Provider: Fabio Drummond Admit Provider: Raji Clarke Primary Care Provider: Carlos Dasilva Other Providers: Raji Clarke ; Modesto Bolaños ; Bryan August Coding Level of Care Code D/C Day Management >30 mins Diagnoses Delirium R41.0 Urinary tract infection N39.0 Prostate cancer C61 Chronic GERD K21.9 Cognitive developmental delay F81.9 Knee effusion M25.469
[2020-09-10 18:39] LABS: BUN Creatinine Ratio 27.8 (10-20); Calcium 9.1 mg/dl (8.5-10.1); Creatinine Clr Calc Pharmacy 49.9 ml/min; Est GFR (African American) 86.2; Est GFR (Non-African American) 74.3; Potassium 5.1 mmol/L (3.5-5.1)
[2020-09-11] MEDS: HEPARIN SOD 5,000 UNIT/0.5 ML VIAL SQ SCH (09:00)
[2020-09-11 19:54] LABS: Lyme DNA PCR CSF or Synovial Not detected (Not Detected); Lyme DNA Source Synovial Fluid
--- NOTE | 2020-09-28 16:59 | Pharmacy Report ---
ED Pharmacist Progress Note - ED Pharmacist Progress Note Date of Service:: September 28, 2020 Notes:: Received call from patient's sister, Lo Hernandez, regarding his visit in the emergency department. Per patient's sister, ED physician told her her brother should not be taking two medications, ciprofloxacin and prednisone. She talked to the outpatient doctor but she wants to discuss with Dr. Parsons. I was unable to assist. Patient's sister is requesting Dr. Parsons call her at , she is aware Dr. Parsons is not on service until Saturday. Will leave message w/ ED pharmacist/Charge nurse to let her know.
== END 2020-09-10 14:10 | disposition home or self-care (01) | DRG 727 ==
LOC: ED 20:00 → 2W 09-05 01:16 → SUATTDRO 09-05 01:16 → 2W 09-05 02:28 → 3W 09-09 01:58

== ENCOUNTER 2021-02-24 00:48 | Inpatient (IN) ==
[2021-02-24 01:17] LABS: Basophils # (auto) 0.01 K/uL (0-0.2); Basophils % (auto) 0.2 %; Eosinophils # (auto) 0.17 K/uL (0-0.5); Eosinophils % (auto) 2.7 %; Hematocrit (blood only) 36.1 % (42-52); Immature Granulocytes # (auto) 0.06 K/uL (0.00-0.02); Lymphocytes # (auto) 0.36 K/uL (1.2-3.4); Lymphocytes % (auto) 5.8 %; Mean Corpuscular Hemoglobin 32.6 pg (25-34); Mean Corpuscular Volume 90.5 fL (80-100); Mean Platelet Volume 8.9 fL (7.4-10.4); Monocytes # (auto) 0.79 K/uL (0.11-0.59); Monocytes % (auto) 12.6 %; Neutrophils # (auto) 4.87 K/uL (1.4-6.5); Neutrophils % (auto) 77.7 %; Platelet Count 182 K/uL (130-400); RDW Coefficient of Variation 12.9 % (11.5-14.5); RDW Standard Deviation 42.8 fL (36.4-46.3); Red Blood Count 3.99 M/uL (4.7-6.1); White Blood Count 6.26 K/uL (4.8-10.8)
[2021-02-24 01:27] LABS: INR 1.1 (0.9-1.1); Partial Thromboplastin Ratio 1.1; Partial Thromboplastin Time 27.9 Seconds (21.0-31.0); Prothrombin Time 10.9 Seconds (9.0-12.0)
--- NOTE | 2021-02-24 01:28 | Emergency Department Note ---
Impression & Plan Hypoxia, Sepsis, Altered mental status ED Provider Note NAME: CHERY RIVERA AGE: 76 SEX: M ARRIVES VIA: Ambulance INFORMANT: Patient ED PROVIDER(S): Yanira Soni DO CHIEF COMPLAINT: Fall PLAN: Disposition: The patient was admitted to the [facility] service Condition: Guarded MEDICAL DECISION MAKING: This is a 76-year-old male patient brought to the emergency department today by EMS after falling off the toilet. Apparently the patient has had an altered mental status worsening over the past couple of weeks. The patient has become increasingly weak over the past 24 hours and actually fell off the toilet tonight. EMS was called and he was transported here. He apparently has had a similar episode in the past when he was septic. Patient has had a productive cough over the past couple of days. Upon presentation to the emergency department, the patient was febrile with a temp of 38.1 and O2 saturation of 86% on room air. The patient's white blood cell count was normal. However, he had a significantly productive cough and his clinical picture was concerning for sepsis. Patient was treated with broad-spectrum antibiotics-cefepime and Levaquin. I discussed the case with the [facility] team and they will evaluate for further management. Triage Nursing notes reviewed and agree with them. Additional history obtained from EMS and the patient's daughter who arrived at the bedside Prior medical records reviewed Vital Signs: reviewed and remarkable for tachycardia and fever Differential diagnosis: Sepsis, pneumonia, COVID-19, UTI, intracranial hemorrhage, stroke ER treatment provided: IV normal saline hydration IV cefepime IV Levaquin Diagnostics interpreted by me: ECG: Sinus tachycardia at a rate of 122 with T wave inversions in lead I and aVL. These are new findings in comparison to August 2020. There is no ectopy Cardiac Monitoring: Sinus tachycardia at 122 Laboratory studies: See below Imaging studies: Portable chest x-ray: As per my interpretation Bilateral lower lobe opacities with the right appearing worse than the left. There is no pneumothorax. There is no obvious consolidation. As per stat rad CT chest with contrast: Borderline cardiomegaly with coronary artery calcifications. Calcified atherosclerotic disease of aorta with no aneurysm. Bilateral lower lobe coarse opacities suggestive of multifocal pneumonitis versus atelectasis. No pleural effusion or pneumothorax. There is thickening of distal trachea at the thoracic inlet, cannot exclude nonspecific inflammatory process. No distinct mass or lymphadenopathy within the mediastinum. The trachea and central bronchi are unremarkable. Diffuse osteopenia along with degenerative disease of the spine. Upper abdomen: Contracted stomach. Fluid within the distal esophagus suggestive of reflux. The visualized spleen, bilateral adrenal glands and visualized liver are unremarkable. CT head: No ICH, mass-effect or edema. No evidence of acute cortical stroke. Periventricular small vessel ischemic change. Mild to moderate generalized brain atrophy. Visualized sinuses reveal opacification of the left maxillary sinus suggestive of sinusitis. Remainder of the paranasal sinuses and mastoids are clear HPI: 76/M arrives for evaluation of fall. The patient has had worsening mental status over the past couple of weeks. Patient fell from the toilet tonight and appeared to be increasingly confused. He was febrile with decreased O2 saturation and a productive cough. ROS: See above HPI for pertinent positives & negatives. A total of 10 systems reviewed and were otherwise negative. PAST MEDICAL HISTORY:See Below PAST SURGICAL HISTORY:See Below FAMILY HISTORY:See Below SOCIAL HISTORY:See Below HOME MEDICATIONS:See list ALLERGIES:See list VITALS:See Below PHYSICAL EXAMINATION: HEENT: Head - normocephalic and atraumatic. Pupils are equal, round, and reactive to light. Extraocular eye muscles are intact and sclera are anicteric. \. Nose - moist nasal mucosa without discharge. Mouth - moist buccal mucosa. Oropharynx is nonerythematous and there is no tonsillar exudate or edema noted. Neck: Supple; no JVD, nuchal rigidity, cervical lymphadenopathy Heart: Tachycardic rate and rhythm. There is a normal S1 and S2 with no murmurs, clicks, or gallops appreciated. Lungs: Diminished breath sounds in all lung khan with rhonchi at the bases Abdomen: Soft, completely nontender, nondistended, with good bowel sounds. There are no palpable pulsatile masses or hepatosplenomegaly. There is no guarding, rigidity, or rebound noted. Extremities: No evidence of cyanosis, clubbing, or edema. There are easily palpable peripheral pulses. Neuro:The patient is awake but not oriented to day time or place. He will occasionally follow commands. He will not answer questions appropriately. ED COURSE: Times/Reassessments: 0100 the patient was evaluated in room C10. A complete history and physical was performed. A septic protocol was performed. An order was placed for continuous cardiac monitoring. The patient was in a sinus tachycardia of 122. A twelve-lead EKG was obtained as described above. The patient was bolused with 500 cc of normal saline solution. A portable chest x-ray was performed. 0205: I discussed the case with the patient's family at the bedside. The patient's daughter explained to me that she has noticed a decreased appetite over the past week and that his mental status has declined. Patient will go for CT scan of the brain and CT scan of the chest. I ordered IV cefepime on the patient for broad-spectrum antibiotic coverage. I have added IV Levaquin to cover the patient's probable pulmonary source. [facility] will [facility] for further management. I have personally spent greater than 50 minutes of critical care time in the direct management of this patient. This includes bedside care, interpretation of diagnostic studies, and testing, discussion with consultants, patient, and family members, and other required patient management activities. This 50 min utes is in excess of all separately billable procedures. Yanira Soni, Past Med/Surg History Medical History Asthma Atrophy of left kidney Bladder diverticulum Cerebral palsy Chronic GERD Diffuse nontoxic goiter Enlarged prostate without lower urinary tract symptoms (luts) Esophageal dysmotility Gait disturbance Hyperlipidemia Hyperparathyroidism Intellectual disability Nephrolithiasis Osteoporosis Sensory hearing loss Skin cancer of anterior chest Surgical History H/O colonoscopy H/O parathyroidectomy History of cataract surgery History of lung biopsy History of placement of ear tubes History of prostate biopsy History of prostate surgery History of surgery Hx of cholecystectomy S/P skin biopsy Family History Mother AAA (abdominal aortic aneurysm) Enlarged heart Alzheimer disease Hypertension Father COPD (chronic obstructive pulmonary disease) Hypertension Stroke Sister Hypertension Grandfather (Maternal) Diabetes Other Hyperlipidemia Osteoporosis Thyroid cancer Denies family history of Ovarian cancer Prostate cancer Myocardial infarction Breast cancer Colorectal cancer Social History Smoking Status: Never smoker Second Hand Exposure: Yes (FATHER SMOKED PIPE); Hx Alcohol Use: No Hx Substance Use: No Preferred Language: Swedish Communication Ability: Impaired Visual Impairment: No Limitations Hearing Ability: Use of Hearing Aid Construction Field 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 Required: No Beliefs That Will Affect Care: None marital status: Single Current Living Situation: Alone Current Living Situation Comment: sister lives next door current occupational status: disabled Feels Safe at Home: Yes caffeine: No during the past year weight has: remained stable Dental Care, Regularly: No Physical Activity Frequency: Daily Seatbelt Use: always Assistive Devices: None Allergies Allergies Allergy/AdvReac Type Severity Reaction Status Date / Time alendronate sodium AdvReac Intermediate Nausea Verified 02/24/21 01:11 tamsulosin AdvReac Intermediate Nausea Verified 02/24/21 01:11 Home Meds Home Medications Medication Instructions Recorded Confirmed cetirizine 10 mg capsule 10 mg PO QPM cap 04/28/20 02/24/21 cholecalciferol (vitamin D3) 25 2,000 unit PO QPM tab 05/09/20 02/24/21 mcg (1,000 unit) tablet calcium carbonate [Tums Ultra] 400 mg PO QPM 08/17/20 02/24/21 loperamide 1 mg/7.5 mL oral liquid 2 mg PO DAILY PRN ml 01/09/21 02/24/21 carboxymethylcell-glycerin(PF) 1 drp OPHTHALMIC (EYE) QID 02/24/21 02/24/21 [Refresh Optive Sensitive (PF)] erythromycin 1 inch OPL HS 02/24/21 02/24/21 Previous Rx's Medication Instructions Recorded alfuzosin 10 mg tablet,extended 10 mg PO DAILY #30 tab 01/09/21 release 24 hr leuprolide (3 month) 22.5 mg (3 22.5 mg SUBCUT ONCE #1 ea 01/27/21 month) subcutaneous syringe omeprazole 20 mg capsule,delayed 20 mg PO QAM #90 cap 02/14/21 release Results & Data (ED) Vital Signs Vital Signs - 24 hr 02/24/21 00:53 02/24/21 00:55 02/24/21 00:56 Temperature 38.1 C H Temperature Source Oral Pulse Rate 120 H 126 H 121 H Pulse Rate [Right Radial] Pulse Rate from SpO2 Sensor 121 H Respiratory Rate 28 H 34 H 28 H Respiratory Effort / Characteristics Blood Pressure 180/93 H 180/93 H Blood Pressure Mean 122 122 Pulse Oximetry 86 L 84 L Oxygen Delivery Method Room Air Oxygen Flow Rate Sepsis New/Unexplained Change in Mental Status Yes Sepsis Action Taken by Nursing Physician Notified 02/24/21 01:00 02/24/21 01:01 02/24/21 01:14 Temperature Temperature Source Pulse Rate 119 H 122 H 125 H Pulse Rate [Right Radial] Pulse Rate from SpO2 Sensor 121 H 124 H 120 H Respiratory Rate 18 15 22 Respiratory Effort / Characteristics Blood Pressure 176/109 H 183/154 H Blood Pressure Mean 131 163 Pulse Oximetry 92 95 92 Oxygen Delivery Method Nasal Cannula Nasal Cannula Oxygen Flow Rate 3 4 Sepsis New/Unexplained Change in Mental Status Sepsis Action Taken by Nursing 02/24/21 01:15 02/24/21 01:16 02/24/21 01:30 Temperature Temperature Source Pulse Rate 127 H 128 H Pulse Rate [Right Radial] Pulse Rate from SpO2 Sensor 127 H 128 H 130 H Respiratory Rate 29 H 31 H Respiratory Effort / Characteristics Blood Pressure 165/114 H 164/128 H Blood Pressure Mean 131 140 Pulse Oximetry 88 L 92 94 Oxygen Delivery Method Nasal Cannula Nasal Cannula Nasal Cannula Oxygen Flow Rate 4 4 4 Sepsis New/Unexplained Change in Mental Status Sepsis Action Taken by Nursing 02/24/21 01:31 02/24/21 01:45 02/24/21 02:00 Temperature Temperature Source Pulse Rate Pulse Rate [Right Radial] Pulse Rate from SpO2 Sensor 132 H 126 H 134 H Respiratory Rate Respiratory Effort / Characteristics Blood Pressure Blood Pressure Mean Pulse Oximetry 94 92 95 Oxygen Delivery Method Nasal Cannula Nasal Cannula Nasal Cannula Oxygen Flow Rate 4 4 4 Sepsis New/Unexplained Change in Mental Status Sepsis Action Taken by Nursing 02/24/21 02:06 02/24/21 02:15 02/24/21 02:30 Temperature Temperature Source Pulse Rate 126 H 120 H 110 H Pulse Rate [Right Radial] Pulse Rate from SpO2 Sensor 125 H 120 H 111 H Respiratory Rate 24 28 H 34 H Respiratory Effort / Characteristics Blood Pressure 176/86 H Blood Pressure Mean 116 Pulse Oximetry 92 91 91 Oxygen Delivery Method Nasal Cannula Oxygen Flow Rate Sepsis New/Unexplained Change in Mental Status Sepsis Action Taken by Nursing 02/24/21 02:31 02/24/21 02:51 02/24/21 02:59 Temperature Temperature Source Pulse Rate 105 H 119 H Pulse Rate [Right Radial] Pulse Rate from SpO2 Sensor 104 H 128 H 122 H Respiratory Rate 26 H 26 H Respiratory Effort / Characteristics Blood Pressure 171/89 H 131/97 Blood Pressure Mean 116 108 Pulse Oximetry 90 92 91 Oxygen Delivery Method Oxygen Flow Rate Sepsis New/Unexplained Change in Mental Status Sepsis Action Taken by Nursing 02/24/21 03:00 02/24/21 03:11 02/24/21 03:22 Temperature Temperature Source Pulse Rate 122 H 124 H Pulse Rate [Right Radial] Pulse Rate from SpO2 Sensor 123 H 123 H 125 H Respiratory Rate 29 H 24 41 H Respiratory Effort / Characteristics Blood Pressure Blood Pressure Mean Pulse Oximetry 95 99 100 Oxygen Delivery Method Nasal Cannula Oxygen Flow Rate 4 Sepsis New/Unexplained Change in Mental Status Sepsis Action Taken by Nursing 02/24/21 03:30 02/24/21 03:41 02/24/21 03:45 Temperature Temperature Source Pulse Rate 121 H 130 H Pulse Rate [Right Radial] Pulse Rate from SpO2 Sensor 135 H 122 H 136 H Respiratory Rate 33 H 28 H 24 Respiratory Effort / Characteristics Blood Pressure 147/87 H 147/87 H Blood Pressure Mean 107 107 Pulse Oximetry 96 95 98 Oxygen Delivery Method Nasal Cannula Oxygen Flow Rate 4 Sepsis New/Unexplained Change in Mental Status Sepsis Action Taken by Nursing 02/24/21 04:00 02/24/21 04:05 02/24/21 04:15 Temperature Temperature Source Pulse Rate 134 H 141 H 146 H Pulse Rate [Right Radial] Pulse Rate from SpO2 Sensor 135 H 142 H 148 H Respiratory Rate 30 H 40 H 36 H Respiratory Effort / Characteristics Blood Pressure Blood Pressure Mean Pulse Oximetry 84 L 93 93 Oxygen Delivery Method Oxygen Flow Rate Sepsis New/Unexplained Change in Mental Status Sepsis Action Taken by Nursing 02/24/21 04:16 02/24/21 04:29 02/24/21 04:31 Temperature Temperature Source Pulse Rate 146 H 135 H 135 H Pulse Rate [Right Radial] Pulse Rate from SpO2 Sensor 149 H 138 H 134 H Respiratory Rate 33 H 40 H 40 H Respiratory Effort / Characteristics Blood Pressure 184/98 H 184/98 H Blood Pressure Mean 126 126 Pulse Oximetry 91 92 91 Oxygen Delivery Method Nasal Cannula Nasal Cannula Oxygen Flow Rate 4 4 Sepsis New/Unexplained Change in Mental Status Sepsis Action Taken by Nursing 02/24/21 05:02 02/24/21 05:12 Temperature Temperature Source Pulse Rate 120 H Pulse Rate [Right Radial] 120 H Pulse Rate from SpO2 Sensor Respiratory Rate 26 H 26 H Respiratory Effort / Characteristics Spontaneous Blood Pressure 156/74 H Blood Pressure Mean Pulse Oximetry 88 L 92 Oxygen Delivery Method Nasal Cannula Nasal Cannula Oxygen Flow Rate 5 5 Sepsis New/Unexplained Change in Mental Status Sepsis Action Taken by Nursing Laboratory Data Result diagrams: 02/24/21 00:45 02/24/21 00:45 Lab Results 02/24/21 02/24/21 02/24/21 Range/Units 00:45 00:45 00:45 WBC 6.26 (4.8-10.8) K/uL RBC 3.99 L (4.7-6.1) M/uL Hgb 13.0 L (14.0-18.0) g/dL Hct 36.1 L (42-52) % MCV 90.5 (80-100) fL MCH 32.6 (25-34) pg MCHC 36.0 (32-36) g/dL RDW Std Deviation 42.8 (36.4-46.3) fL RDW Coeff of Patricia 12.9 (11.5-14.5) % Plt Count 182 (130-400) K/uL MPV 8.9 (7.4-10.4) fL Immature Gran % (Auto) 1.0 % Neut % (Auto) 77.7 % Lymph % (Auto) 5.8 % [place] % (Auto) 12.6 % Eos % (Auto) 2.7 % Baso % (Auto) 0.2 % Neut # (Auto) 4.87 (1.4-6.5) K/uL Lymph # (Auto) 0.36 L (1.2-3.4) K/uL Montgomery # (Auto) 0.79 H (0.11-0.59) K/uL Eos # (Auto) 0.17 (0-0.5) K/uL Baso # (Auto) 0.01 (0-0.2) K/uL Immature Gran # (Auto) 0.06 H (0.00-0.02) K/uL PT 10.9 (9.0-12.0) Seconds INR 1.1 (0.9-1.1) APTT 27.9 (21.0-31.0) Seconds PTT Ratio 1.1 Sodium 135 L (136-145) mmol/L Potassium 4.3 (3.5-5.1) mmol/L Chloride 99 (98-107) mmol/L Carbon Dioxide 30 (21-32) mmol/L Anion Gap 6.0 (3-11) BUN 31 H (7-18) mg/dl Creatinine 1.09 (0.6-1.4) mg/dl Est Cr Clr Drug Dosing 46.9 ml/min Est GFR ( Amer) 77.1 ml/min Est GFR (Non-Af Amer) 66.5 ml/min BUN/Creatinine Ratio 28.2 H (10-20) Glucose 111 H (70-99) mg/dl POC Glucose (70-99) mg/dl Lactate (0.4-2.0) mmol/L Calcium 10.1 (8.5-10.1) mg/dl Magnesium 1.5 L (1.8-2.4) mg/dl Total Bilirubin 1.2 H (0.2-1) mg/dl AST 29 (15-37) U/L ALT 40 (12-78) U/L Alkaline Phosphatase 111 (45-117) U/L Troponin I < 0.015 (0-0.045) ng/ml NT-Pro-B Natriuret Pep 717 (0-900) pg/ml Total Protein 6.6 (6.4-8.2) gm/dl Albumin 3.1 L (3.4-5.0) gm/dl Globulin 3.5 (2.5-4.0) gm/dl Albumin/Globulin Ratio 0.9 (0.9-2) Urine Color Urine Appearance (Clear) Urine pH (4.5-7.5) Ur Specific [place] (1.000-1.030) Urine Protein (Negative) Urine Glucose (UA) (Negative) Urine Ketones (Negative) Urine Blood (Negative) Urine Nitrite (Negative) Urine Bilirubin (Negative) Urine Urobilinogen (Negative) Ur Leukocyte Esterase (Negative) Urine WBC (Auto) (0-5) /hpf Urine RBC (Auto) (0-4) /hpf U Hyaline Cast (Auto) (0-5) /lpf U Epithel Cells (Auto) (0-5) /lpf Urine Bacteria (Auto) (Negative) COVID-19 Eval Order SARS-CoV-2 (PCR) (Negative) 02/24/21 02/24/21 02/24/21 Range/Units 01:26 01:28 01:28 WBC (4.8-10.8) K/uL RBC (4.7-6.1) M/uL Hgb (14.0-18.0) g/dL Hct (42-52) % MCV (80-100) fL MCH (25-34) pg MCHC (32-36) g/dL RDW Std Deviation (36.4-46.3) fL RDW Coeff of Patricia (11.5-14.5) % Plt Count (130-400) K/uL MPV (7.4-10.4) fL Immature Gran % (Auto) % Neut % (Auto) % Lymph % (Auto) % [place] % (Auto) % Eos % (Auto) % Baso % (Auto) % Neut # (Auto) (1.4-6.5) K/uL Lymph # (Auto) (1.2-3.4) K/uL [place] # (Auto) (0.11-0.59) K/uL Eos # (Auto) (0-0.5) K/uL Baso # (Auto) (0-0.2) K/uL Immature Gran # (Auto) (0.00-0.02) K/uL PT (9.0-12.0) Seconds INR (0.9-1.1) APTT (21.0-31.0) Seconds PTT Ratio Sodium (136-145) mmol/L Potassium (3.5-5.1) mmol/L Chloride (98-107) mmol/L Carbon Dioxide (21-32) mmol/L Anion Gap (3-11) BUN (7-18) mg/dl Creatinine (0.6-1.4) mg/dl Est Cr Clr Drug Dosing ml/min Est GFR ( Amer) ml/min Est GFR (Non-Af Amer) ml/min BUN/Creatinine Ratio (10-20) Glucose (70-99) mg/dl POC Glucose 128 H (70-99) mg/dl Lactate (0.4-2.0) mmol/L Calcium (8.5-10.1) mg/dl Magnesium (1.8-2.4) mg/dl Total Bilirubin (0.2-1) mg/dl AST (15-37) U/L ALT (12-78) U/L Alkaline Phosphatase (45-117) U/L Troponin I (0-0.045) ng/ml NT-Pro-B Natriuret Pep (0-900) pg/ml Total Protein (6.4-8.2) gm/dl Albumin (3.4-5.0) gm/dl Globulin (2.5-4.0) gm/dl Albumin/Globulin Ratio (0.9-2) Urine Color Urine Appearance (Clear) Urine pH (4.5-7.5) Ur Specific [place] (1.000-1.030) Urine Protein (Negative) Urine Glucose (UA) (Negative) Urine Ketones (Negative) Urine Blood (Negative) Urine Nitrite (Negative) Urine Bilirubin (Negative) Urine Urobilinogen (Negative) Ur Leukocyte Esterase (Negative) Urine WBC (Auto) (0-5) /hpf Urine RBC (Auto) (0-4) /hpf U Hyaline Cast (Auto) (0-5) /lpf U Epithel Cells (Auto) (0-5) /lpf Urine Bacteria (Auto) (Negative) COVID-19 Eval Order Covid19 at [facility] SARS-CoV-2 (PCR) NEGATIVE (Negative) 02/24/21 02/24/21 Range/Units 01:44 02:09 WBC (4.8-10.8) K/uL RBC (4.7-6.1) M/uL Hgb (14.0-18.0) g/dL Hct (42-52) % MCV (80-100) fL MCH (25-34) pg MCHC (32-36) g/dL RDW Std Deviation (36.4-46.3) fL RDW Coeff of Patricia (11.5-14.5) % Plt Count (130-400) K/uL MPV (7.4-10.4) fL Immature Gran % (Auto) % Neut % (Auto) % Lymph % (Auto) % [place] % (Auto) % Eos % (Auto) % Baso % (Auto) % Neut # (Auto) (1.4-6.5) K/uL Lymph # (Auto) (1.2-3.4) K/uL [place] # (Auto) (0.11-0.59) K/uL Eos # (Auto) (0-0.5) K/uL Baso # (Auto) (0-0.2) K/uL Immature Gran # (Auto) (0.00-0.02) K/uL PT (9.0-12.0) Seconds INR (0.9-1.1) APTT (21.0-31.0) Seconds PTT Ratio Sodium (136-145) mmol/L Potassium (3.5-5.1) mmol/L Chloride (98-107) mmol/L Carbon Dioxide (21-32) mmol/L Anion Gap (3-11) BUN (7-18) mg/dl Creatinine (0.6-1.4) mg/dl Est Cr Clr Drug Dosing ml/min Est GFR ( Amer) ml/min Est GFR (Non-Af Amer) ml/min BUN/Creatinine Ratio (10-20) Glucose (70-99) mg/dl POC Glucose (70-99) mg/dl Lactate 1.2 (0.4-2.0) mmol/L Calcium (8.5-10.1) mg/dl Magnesium (1.8-2.4) mg/dl Total Bilirubin (0.2-1) mg/dl AST (15-37) U/L ALT (12-78) U/L Alkaline Phosphatase (45-117) U/L Troponin I (0-0.045) ng/ml NT-Pro-B Natriuret Pep (0-900) pg/ml Total Protein (6.4-8.2) gm/dl Albumin (3.4-5.0) gm/dl Globulin (2.5-4.0) gm/dl Albumin/Globulin Ratio (0.9-2) Urine Color Yellow Urine Appearance Clear (Clear) Urine pH 6.5 (4.5-7.5) Ur Specific [place] 1.011 (1.000-1.030) Urine Protein 1+ H (Negative) Urine Glucose (UA) Negative (Negative) Urine Ketones Negative (Negative) Urine Blood Trace H (Negative) Urine Nitrite Negative (Negative) Urine Bilirubin Negative (Negative) Urine Urobilinogen Negative (Negative) Ur Leukocyte Esterase 1+ H (Negative) Urine WBC (Auto) 10-30 H (0-5) /hpf Urine RBC (Auto) 0-4 (0-4) /hpf U Hyaline Cast (Auto) 1-5 (0-5) /lpf U Epithel Cells (Auto) 5-10 H (0-5) /lpf Urine Bacteria (Auto) Negative (Negative) COVID-19 Eval Order SARS-CoV-2 (PCR) (Negative) Administered Medications Lactated Ringer's (Lr) 1,000 mls @ 999 mls/hr IV .[id number] ONE Stop: 02/24/21 05:27 Last Admin: 02/24/21 04:40 Dose: 999 mls/hr Documented by: [id number] Discontinued Medications Albuterol (Albut/Ipratrop 3mg/0.5mg Neb 3 Ml Vial) 3 ml NEB NOW STA Stop: 02/24/21 04:53 Last Admin: 02/24/21 05:00 Dose: 3 ml Documented by: [id number] Magnesium Sulfate/Dextrose (Magnesium Sulfate / D5w) 1 gm in 100 mls @ 100 mls/hr IV NOW STA Stop: 02/24/21 02:54 Last Infusion: 02/24/21 03:05 Dose: 0 mls/hr Documented by: [id number] Admin: 02/24/21 02:05 Dose: 100 mls/hr Documented by: [id number] Lorazepam (Ativan) 0.5 mg in 1 mls @ 1 mls/min IV NOW STA Stop: 02/24/21 03:36 Last Admin: 02/24/21 03:36 Dose: 1 mls/min Documented by: [id number] Levofloxacin/Dextrose (Levaquin/D5w) 750 mg in 150 mls @ 100 mls/hr IV NOW STA Stop: 02/24/21 05:08 Last Admin: 02/24/21 03:46 Dose: 100 mls/hr Documented by: [id number] Cefepime HCl (Maxipime) 2,000 mg in 20 mls @ 5 mls/min IV NOW STA; Protocol Stop: 02/24/21 03:42 Last Admin: 02/24/21 03:45 Dose: 5 mls/min Documented by: [id number] Ioversol (Optiray 300 100ml) 100 ml IV ONCE ONE Stop: 02/24/21 02:54 Last Admin: 02/24/21 02:54 Dose: 87 ml Documented by: [id number] Methylprednisolone (Methylprednisolone 125 Mg/2 Ml Vial) 125 mg IV NOW STA Stop: 02/24/21 04:53 Last Admin: 02/24/21 04:56 Dose: 125 mg Documented by: [id number] Methylprednisolone (Methylprednisolone 125 Mg/2 Ml Vial) Confirm Administered Dose 125 mg .ROUTE .STK-MED ONE Stop: 02/24/21 04:56 Last Admin: 02/24/21 04:57 Dose: Not Given Documented by: [id number] Discharge Plan Visit Data Chief Complaint: Altered Mental Status Stated Complaint: ALTERED MENTAL STATUS/FALL ED Provider: Yanira Soni Discharge Problem: Hypoxia, Sepsis, Altered mental status Discharge Instructions Interventions: ED Discharge Assessment Last Done: 02/24/21 05:12 Forms Stand Alone Forms: [facility] Prescriptions Prescriptions: No Action All Day Allergy (cetirizine) 10 mg capsule 10 mg PO QPM RF: 0 loperamide [Imodium A-D] 1 mg/7.5 mL liquid 2 mg PO DAILY PRN (Reason: Diarrhea) RF: 0 Eligard (3 month) 22.5 mg syringe 22.5 mg subcut ONCE Qty: 1 RF: 0 alfuzosin [Uroxatral] 10 mg tablet extended release 24 hr 10 mg PO DAILY Qty: 30 RF: 5 omeprazole 20 mg capsule,delayed release(DR/EC) 20 mg PO QAM Qty: 90 RF: 3 cholecalciferol (vitamin D3) 25 mcg (1,000 unit) tablet 2,000 unit PO QPM RF: 0 calcium carbonate [Tums Ultra] 400 mg calcium (1,000 mg) Tablet,Chewable 400 mg PO QPM RF: 0 erythromycin 5 mg/gram (0.5 %) ointment 1 inch OPL HS RF: 0 Refresh Optive Sensitive (PF) 0.5-0.9 % Dropperette 1 drp ophthalmic (eye) QID RF: 0 Referrals Referrals: Carlos Dasilva MD [Primary Care Provider] - Discharge Problem: Sepsis Qualifiers: Sepsis type: sepsis due to unspecified organism Sepsis acute organ dysfunction status: unspecified Qualified Code(s): A41.9 - Sepsis, unspecified organism Altered mental status Qualifiers: Altered mental status type: delirium Qualified Code(s): R41.0 - Disorientation, unspecified
[2021-02-24 01:35] LABS: Alanine Aminotransferase 40 U/L (12-78); Albumin Level 3.1 gm/dl (3.4-5.0); Aspartate Aminotransferase 29 U/L (15-37); BUN Creatinine Ratio 28.2 (10-20); Blood Urea Nitrogen 31 mg/dl (7-18); Calcium 10.1 mg/dl (8.5-10.1); Carbon Dioxide 30 mmol/L (21-32); Chloride 99 mmol/L (98-107); Creatinine Clr Calc Pharmacy 46.9 ml/min; Est GFR (African American) 77.1 ml/min; Est GFR (Non-African American) 66.5 ml/min; Glucose 111 mg/dl (70-99); Magnesium 1.5 mg/dl (1.8-2.4); Potassium 4.3 mmol/L (3.5-5.1); Sodium 135 mmol/L (136-145)
[2021-02-24 01:40] LABS: Albumin Globulin Ratio 0.9 (0.9-2); Alkaline Phosphatase 111 U/L (45-117); Bilirubin,Total 1.2 mg/dl (0.2-1); Globulin 3.5 gm/dl (2.5-4.0); NT Pro B Type Natriuretic Pept 717 pg/ml (0-900); Total Protein 6.6 gm/dl (6.4-8.2); Troponin I < 0.015 ng/ml (0-0.045)
[2021-02-24] MEDS ORDERED: MAGNESIUM SULFATE / D5W 1 GM/100 ML BAG IV STA (01:55)
[2021-02-24 02:28] LABS: Appearance Urine Clear (Clear); Bacteria Urine Automated Negative (Negative); Bilirubin Urine Negative (Negative); Blood Urine Trace (Negative); Color Urine Yellow; Glucose Urine UA Negative (Negative); Ketones Urine Negative (Negative); Leukocyte Esterase Urine 1+ (Negative); Nitrite Urine Negative (Negative); Protein Urine 1+ (Negative); RBC Urine Automated 0-4 /hpf (0-4); Specific Gravity Urine 1.011 (1.000-1.030); Urobilinogen Urine Negative (Negative); pH Urine 6.5 (4.5-7.5)
[2021-02-24] MEDS ORDERED: OPTIRAY 300 100mL IV ONE (02:53)
[2021-02-24] MEDS ORDERED: LORazepam 0.5 MG/1 ML VIAL IV STA (03:35)
[2021-02-24] MEDS ORDERED: levoFLOXacin/D5W 750 MG/150 ML BAG IV STA (03:39)
[2021-02-24] MEDS ORDERED: CEFEPIME 2,000 MG/20 ML VIAL IV STA (03:39)
[2021-02-24] MEDS ORDERED: LACTATED RINGER'S 1,000 ML IV ONE (04:27)
[2021-02-24] MEDS ORDERED: methylPREDNISolone 125 MG/2 ML VIAL IV STA (04:52)
[2021-02-24] MEDS ORDERED: ALBUT/IPRATROP 3MG/0.5MG NEB 3 ML VIAL NEB STA (04:52)
[2021-02-24] MEDS ORDERED: methylPREDNISolone 125 MG/2 ML VIAL ONE (04:55)
--- NOTE | 2021-02-24 05:15 | History & Physical Report ---
Date of Service February 24, 2021 Assessment & Plan (1) Sepsis: 76 yo cognitively impaired individual who lives at home with his sister, brought in to ER by daughter for acute worsening mental status. Encephalopathy -- most likely due to sepsis from pulmonary source - CT head negative - baseline cognition limited but much better than current - improved with oxygenation - delirium precautions Sepsis - most likely aspiration pneuomonia - vanc, zosyn. mrsa nares pending. received levaquin x1 in ER - blood cultures pending - received 1L LR bolus in ER, 0.5 L NS bolus - trend WBC, tylenol for fevers, o2 goal >90 Aspiration Pneumonia - abx as above -elevate HOB - speech consult - NPO - chest pt, duonebs QID - methylpred 125 x1, 40 IV Q8 DVT: heparin bid fen/gi: NPO, famotidine Code Status: unable to discuss with patient or family, re-ordered from prior admission as FULL CODE. recommend discussing with family to confirm. Dispo: PCU (2) Hypoxia: (3) Altered mental status: (4) Atrophy of left kidney: (5) Cognitive developmental delay: (6) Prostate cancer: (7) Esophageal dysmotility: (8) Encephalopathy acute: History of Present Illness Patient unresponsive to questions, history gathered from EM physician who spoke to the patient's daughter while she was there. Patient was found to be acutely altered and fell off the commode. Daughter states he's had a decreased appetite, productive cough, says he behaved like this last time he was admitted for a UTI sepsis. Chart review shows hx adenocarcinoma of prostate treated with TURP, brachytherapy and androgen blockade. Primary Care Provider: Carlos Dasilva MD Allergies Allergy/AdvReac Type Severity Reaction Status Date / Time alendronate sodium AdvReac Intermediate Nausea Verified 02/24/21 01:11 tamsulosin AdvReac Intermediate Nausea Verified 02/24/21 01:11 Home Medications Medication Instructions Recorded Confirmed Type cetirizine 10 mg capsule 10 mg PO QPM cap 04/28/20 02/24/21 History cholecalciferol (vitamin D3) 25 2,000 unit PO QPM tab 05/09/20 02/24/21 History mcg (1,000 unit) tablet calcium carbonate [Tums Ultra] 400 mg PO QPM 08/17/20 02/24/21 History alfuzosin 10 mg tablet,extended 10 mg PO DAILY #30 tab 01/09/21 02/24/21 Rx release 24 hr loperamide 1 mg/7.5 mL oral liquid 2 mg PO DAILY PRN ml 01/09/21 02/24/21 History leuprolide (3 month) 22.5 mg (3 22.5 mg SUBCUT ONCE #1 ea 01/27/21 02/24/21 Rx month) subcutaneous syringe omeprazole 20 mg capsule,delayed 20 mg PO QAM #90 cap 02/14/21 02/24/21 Rx release carboxymethylcell-glycerin(PF) 1 drp OPHTHALMIC (EYE) QID 02/24/21 02/24/21 History [Refresh Optive Sensitive (PF)] erythromycin 1 inch OPL HS 02/24/21 02/24/21 History Past Med/Surg History Medical History Asthma Atrophy of left kidney Bladder diverticulum Cerebral palsy Chronic GERD Diffuse nontoxic goiter Enlarged prostate without lower urinary tract symptoms (luts) Esophageal dysmotility Gait disturbance Hyperlipidemia Hyperparathyroidism Intellectual disability Nephrolithiasis Osteoporosis Sensory hearing loss Skin cancer of anterior chest Surgical History H/O colonoscopy H/O parathyroidectomy History of cataract surgery History of lung biopsy History of placement of ear tubes History of prostate biopsy History of prostate surgery History of surgery Hx of cholecystectomy S/P skin biopsy Family History Mother AAA (abdominal aortic aneurysm) Enlarged heart Alzheimer disease Hypertension Father COPD (chronic obstructive pulmonary disease) Hypertension Stroke Sister Hypertension Grandfather (Maternal) Diabetes Other Hyperlipidemia Osteoporosis Thyroid cancer Denies family history of Ovarian cancer Prostate cancer Myocardial infarction Breast cancer Colorectal cancer Social History Smoking Status: Never smoker Second Hand Exposure: Yes (FATHER SMOKED PIPE); Hx Alcohol Use: No Hx Substance Use: No Preferred Language: Italian Communication Ability: Effective Visual Impairment: No Limitations Hearing Ability: Use of Hearing Aid Obstetrics Gyn Physician Required: No Beliefs That Will Affect Care: None marital status: Single Current Living Situation: Alone Current Living Situation Comment: Lives next door to sister per previous records current occupational status: disabled Other Information That Helps Us Care for You: No Feels Safe at Home: Yes caffeine: No during the past year weight has: remained stable Dental Care, Regularly: No Physical Activity Frequency: Daily Seatbelt Use: always Assistive Devices: Oxygen - Continuous Review of Systems Review of Systems: Unobtainable due to cognitive status Physical Exam Physical Exam: Constitutional: ill appearing, disheveled, not vocal, baseline tremor of whole body, rigors Eyes: eyelids lowered, extensive tear production from both eyes, no c onjunctivitis, icterus, pupils equal and reactive to light Cardiac: RRR, no murmurs, gallops or rubs. Normal S1, S2 Pulm: increased respiratory effort, rhonchorous breath sounds throughout all lung khan, on 6L NC, productive cough Abd: soft, nontender, nondistended, normal bowel sounds, no rebound or guarding Extremities: 2+ peripheral pulses, no edema Neuro:not answering questions, responsive to pain, moving limbs of own accord Results & Data Results & Data ([facility]) Vital Signs (Past 12 Hours) Vital Signs Temp Pulse Pulse Resp BP Pulse Ox 02/24/21 05:12 120 H 26 H 156/74 H 92 02/24/21 05:02 120 H 26 H 88 L 02/24/21 04:31 135 H 40 H 91 02/24/21 04:29 135 H 40 H 184/98 H 92 02/24/21 04:16 146 H 33 H 184/98 H 91 02/24/21 04:15 146 H 36 H 93 02/24/21 04:05 141 H 40 H 93 02/24/21 04:00 134 H 30 H 84 L 02/24/21 03:45 130 H 24 98 02/24/21 03:41 121 H 28 H 147/87 H 95 02/24/21 03:30 33 H 147/87 H 96 02/24/21 03:22 124 H 41 H 100 02/24/21 03:11 122 H 24 99 02/24/21 03:00 29 H 95 02/24/21 02:59 119 H 26 H 131/97 91 02/24/21 02:51 92 02/24/21 02:31 105 H 26 H 171/89 H 90 02/24/21 02:30 110 H 34 H 91 02/24/21 02:15 120 H 28 H 91 02/24/21 02:06 126 H 24 176/86 H 92 02/24/21 02:00 95 02/24/21 01:45 92 02/24/21 01:31 94 02/24/21 01:30 164/128 H 94 02/24/21 01:16 128 H 31 H 92 02/24/21 01:15 127 H 29 H 165/114 H 88 L 02/24/21 01:14 125 H 22 183/154 H 92 02/24/21 01:01 122 H 15 95 02/24/21 01:00 119 H 18 176/109 H 92 02/24/21 00:56 121 H 28 H 84 L 02/24/21 00:55 126 H 34 H 180/93 H 02/24/21 00:53 38.1 C H 120 H 28 H 180/93 H 86 L Laboratory Results WBC 6.26 K/uL (4.8-10.8) 02/24/21 00:45 RBC 3.99 M/uL (4.7-6.1) L 02/24/21 00:45 Hgb 13.0 g/dL (14.0-18.0) L 02/24/21 00:45 Hct 36.1 % (42-52) L 02/24/21 00:45 MCV 90.5 fL (80-100) 02/24/21 00:45 MCH 32.6 pg (25-34) 02/24/21 00:45 MCHC 36.0 g/dL (32-36) 02/24/21 00:45 RDW Std Deviation 42.8 fL (36.4-46.3) 02/24/21 00:45 RDW Coeff of Patricia 12.9 % (11.5-14.5) 02/24/21 00:45 Plt Count 182 K/uL (130-400) 02/24/21 00:45 MPV 8.9 fL (7.4-10.4) 02/24/21 00:45 Immature Gran % (Auto) 1.0 % 02/24/21 00:45 Neut % (Auto) 77.7 % 02/24/21 00:45 Lymph % (Auto) 5.8 % 02/24/21 00:45 [place] % (Auto) 12.6 % 02/24/21 00:45 Eos % (Auto) 2.7 % 02/24/21 00:45 Baso % (Auto) 0.2 % 02/24/21 00:45 Neut # (Auto) 4.87 K/uL (1.4-6.5) 02/24/21 00:45 Lymph # (Auto) 0.36 K/uL (1.2-3.4) L 02/24/21 00:45 [place] # (Auto) 0.79 K/uL (0.11-0.59) H 02/24/21 00:45 Eos # (Auto) 0.17 K/uL (0-0.5) 02/24/21 00:45 Baso # (Auto) 0.01 K/uL (0-0.2) 02/24/21 00:45 Immature Gran # (Auto) 0.06 K/uL (0.00-0.02) H 02/24/21 00:45 PT 10.9 Seconds (9.0-12.0) 02/24/21 00:45 INR 1.1 (0.9-1.1) 02/24/21 00:45 APTT 27.9 Seconds (21.0-31.0) 02/24/21 00:45 PTT Ratio 1.1 02/24/21 00:45 Sodium 135 mmol/L (136-145) L 02/24/21 00:45 Potassium 4.3 mmol/L (3.5-5.1) 02/24/21 00:45 Chloride 99 mmol/L (98-107) 02/24/21 00:45 Carbon Dioxide 30 mmol/L (21-32) 02/24/21 00:45 Anion Gap 6.0 (3-11) 02/24/21 00:45 BUN 31 mg/dl (7-18) H 02/24/21 00:45 Creatinine 1.09 mg/dl (0.6-1.4) 02/24/21 00:45 Est Cr Clr Drug Dosing 46.9 ml/min 05 00:45 Est GFR ( Amer) 77.1 ml/min 02/24/21 00:45 Est GFR (Non-Af Amer) 66.5 ml/min 02/24/21 00:45 BUN/Creatinine Ratio 28.2 (10-20) H 02/24/21 00:45 Glucose 111 mg/dl (70-99) H 02/24/21 00:45 POC Glucose 128 mg/dl (70-99) H 02/24/21 01:26 Lactate 1.2 mmol/L (0.4-2.0) 02/24/21 01:44 Calcium 10.1 mg/dl (8.5-10.1) 02/24/21 00:45 Magnesium 1.5 mg/dl (1.8-2.4) L 02/24/21 00:45 Total Bilirubin 1.2 mg/dl (0.2-1) H 02/24/21 00:45 AST 29 U/L (15-37) 02/24/21 00:45 ALT 40 U/L (12-78) 02/24/21 00:45 Alkaline Phosphatase 111 U/L (45-117) 02/24/21 00:45 Troponin I < 0.015 ng/ml (0-0.045) 02/24/21 00:45 NT-Pro-B Natriuret Pep 717 pg/ml (0-900) 02/24/21 00:45 Total Protein 6.6 gm/dl (6.4-8.2) 02/24/21 00:45 Albumin 3.1 gm/dl (3.4-5.0) L 02/24/21 00:45 Globulin 3.5 gm/dl (2.5-4.0) 02/24/21 00:45 Albumin/Globulin Ratio 0.9 (0.9-2) 02/24/21 00:45 Urine Color Yellow 02/24/21 02:09 Urine Appearance Clear (Clear) 02/24/21 02:09 Urine pH 6.5 (4.5-7.5) 02/24/21 02:09 Ur Specific [place] 1.011 (1.000-1.030) 02/24/21 02:09 Urine Protein 1+ (Negative) H 02/24/21 02:09 Urine Glucose (UA) Negative (Negative) 02/24/21 02:09 Urine Ketones Negative (Negative) 02/24/21 02:09 Urine Blood Trace (Negative) H 02/24/21 02:09 Urine Nitrite Negative (Negative) 02/24/21 02:09 Urine Bilirubin Negative (Negative) 02/24/21 02:09 Urine Urobilinogen Negative (Negative) 02/24/21 02:09 Ur Leukocyte Esterase 1+ (Negative) H 02/24/21 02:09 Urine WBC (Auto) 10-30 /hpf (0-5) H 02/24/21 02:09 Urine RBC (Auto) 0-4 /hpf (0-4) 02/24/21 02:09 U Hyaline Cast (Auto) 1-5 /lpf (0-5) 02/24/21 02:09 U Epithel Cells (Auto) 5-10 /lpf (0-5) H 02/24/21 02:09 Urine Bacteria (Auto) Negative (Negative) 02/24/21 02:09 COVID-19 Eval Order Covid19 at [facility] 02/24/21 01:28 SARS-CoV-2 (PCR) NEGATIVE (Negative) 02/24/21 01:28 CTA CHest: Borderline cardiomegaly with coronary artery calcifications. Calcified atherosclerotic disease of aorta with no aneurysm. Bilateral lower lobe coarse opacities suggestive of multifocal pneumonitis versus atelectasis. No pleural effusion or pneumothorax. There is thickening of the distal trachea at the thoracic inlet, cannot exclude nonspecific inflammatory process. No distinct mass or lymphadenopathy within the mediastinum. The trachea and central bronchi are unremarkable. Diffuse osteopenia along with degenerative disease of the spine. Upper abdomen:Contracted stomach. Fluid within the distal esophagus suggestive of reflux. The visualized spleen, bilateral adrenal glands and visualized liver unremarkable. Severe atrophy of the left kidney. CT Head: No ICH, mass effect or edema. No evidence of acute cortical stroke. Periventricular small vessel ischemic change. Mild to moderate generalized brain atrophy. Visualized sinuses reveal opacification of the left maxillarysinus suggestive of sinusitis. Remainder of the paranasal sinuses and mastoids are clear air cells are clear. Code Status & VTE Plan VTE Prophylaxis Plan VTE Prophylaxis will be ordered: Yes Supervising Physician Co-Signing Physician Notes Attending addendum: I have physically seen this patient, have supervised the medical residents activities, and agree with the H&P unless as otherwise noted. Assessment and Plan: Sepsis/multifocal pneumonia/probable aspiration- Placed on vancomycin IV and Zosyn IV per pharmacokinetic monitoring Duonebs every 4 hours while awake and every 2 hours when necessary. Initial methylprednisolone 125 mg IV x1, then 40 mg IV every 8 hours Guaifenesin extended release 600 mg p.o. twice daily Metabolic encephalopathy- Secondary to sepsis due to pneumonia Hypomagnesemia- Replace with IV supplementation and then repeat levels in a.m. Remaining orders and notations as noted Resident Activity Tracking Resident Involvement: Resident Care Provided Care Provided: Adult Hospital Medicine (1) Sepsis Sepsis acute organ dysfunction status: unspecified Sepsis type: sepsis due to unspecified organism Qualified Code(s): A41.9 - Sepsis, unspecified organism (2) Altered mental status Altered mental status type: delirium Qualified Code(s): R41.0 - Disorientation, unspecified
[2021-02-24] MEDS ORDERED: ACETAMINOPHEN 1000 MG/100 ML IV IV PRN (05:45)
[2021-02-24] MEDS ORDERED: ACETAMINOPHEN 325 MG TAB PO PRN (06:20)
[2021-02-24] MEDS ORDERED: MAGNESIUM HYDROXIDE SUSP 30 ML UDC PO PRN (06:20)
[2021-02-24] MEDS ORDERED: NITROGLYCERIN SL 0.4 MG/TAB TAB SL PRN (06:20)
[2021-02-24] MEDS ORDERED: ONDANSETRON INJ 2 MG/ML 2 ML VIAL IV PRN ×2 (06:20→15:14)
[2021-02-24] MEDS: MAGNESIUM SULFATE / D5W 1 GM/100 ML BAG IV SCH ×2 (06:52→08:56)
[2021-02-24] MEDS ORDERED: ALBUT/IPRATROP 3MG/0.5MG NEB 3 ML VIAL NEB SCH (07:00)
[2021-02-24] MEDS: ALBUT/IPRATROP 3MG/0.5MG NEB 3 ML VIAL NEB SCH ×5 (07:02→19:22)
--- NOTE | 2021-02-24 07:05 | CT Scan Report ---
CT SCAN OF THE BRAIN WITHOUT IV CONTRAST CLINICAL HISTORY: Change in mental status. COMPARISON STUDY: CT of the brain dated 09/04/2020. TECHNIQUE: Unenhanced axial CT scan of the brain is performed from the vertex to the skull base. A do se lowering technique was utilized adhering to the principles of ALARA. CT DOSE: 768.39 mGy.cm FINDINGS: Brain parenchyma: There are age-related involutional changes noting mild to moderate subcortical and periventricular microangiopathic change. There is no hemorrhage, mass effect, or evidence of acute t erritorial ischemia by CT criteria. Ortega-white matter differentiation is preserved. No extra-axial fl uid collection is seen. Ventricles, sulci, cisterns: Prominent secondary to involutional change. Intracranial vasculature: There is atherosclerotic calcification of the cavernous carotid arteries. Calvarium: Unremarkable. Sinuses and mastoids: There is opacification of the visualized left maxillary antrum. Trace mucosal t hickening is noted in the ethmoid sinuses. The mastoid air cells are well pneumatized. Orbits: The bony orbits are grossly intact. There are bilateral ocular lens implants. IMPRESSION: There is no hemorrhage, mass effect, or evidence of acute territorial ischemia by CT ilana hurd. ACT 112: Negative or not required by law. Electronically signed by: Artie De La Cruz M.D. 02/24/2021 7:03 AM
--- NOTE | 2021-02-24 08:06 | CT Scan Report ---
CT SCAN OF THE CHEST WITH IV CONTRAST CLINICAL HISTORY: Sepsis. COMPARISON STUDY: Chest x-ray dated 02/24/2021. Abdominal CT dated 04/06/2020. TECHNIQUE: Following the IV administration of 87 cc of Optiray 300, CT scan of the thorax was perform ed from the thoracic inlet to the upper abdomen. Images are reviewed in the axial, sagittal, and jefferson nal planes. IV contrast was administered without complication. A dose lowering technique was utilize d adhering to the principles of ALARA. The examination is compromised by motion artifact, and by stre ak artifact from the arms which could not be elevated above the chest. FINDINGS: Thyroid: The left lobe is surgically absent. The right lobe is mildly enlarged and heterogeneous. The re are subcentimeter hypodense with dense nodules. Thoracic aorta: There is atherosclerotic calcification of the thoracic aorta. There is aneurysmal dil atation of the aortic root and ascending thoracic aorta which measures up to 4.8 cm. The remainder of the thoracic aorta is normal in caliber, and the arch demonstrates standard 3-vessel anatomy. No dis section is seen. Pulmonary vasculature: The pulmonary trunk is dilated, measuring 3.4 cm in diameter. This suggests pu lmonary artery hypertension. There are no filling defects identified in the central pulmonary vessels to indicate pulmonary embolus. Note that this examination was not protocoled for evaluation of the p ulmonary arteries. Heart: The heart is enlarged and without pericardial effusion. The coronary arteries are densely calc ified. Lungs and pleural spaces: Emphysematous change is noted. Biapical pleural parenchymal scarring is franco ntified. The tracheal wall appears thickened and there is peritracheal infiltration. Inflammatory lynn nges also seen around the mainstem bronchi. There are scattered calcified granulomas. Dependent scarr ing/atelectasis is seen at both lung bases. Suspect mild superimposed patchy consolidation at the lef t lung base and in the lingula. No pleural effusion is identified. There is intraluminal debris withi n the lower lobe airways with associated peribronchial thickening. A 5 mm right upper lobe pulmonary nodule is seen on image #139 Mediastinum: Mild infiltration is seen throughout the mediastinum. There is no pneumomediastinum. The re is mediastinal lymphadenopathy. A subcarinal node measures 1.9 cm in short axis. Jazmine: There is bilateral hilar adenopathy. Hilar nodes measure up to 1.3 cm in short axis. Axillae: There is no axillary lymphadenopathy. Upper abdomen: There is a small to moderate hiatal hernia. There is markedly asymmetric cortical atro phy of the left kidney as compared to the right. A 4 mm calculus is seen in the right upper pole. Hyp erdense left renal nodules measure up to 1.1 cm. These are similar to previous. Skeletal structures: The skeletal structures are osteopenic. Degenerative change is seen throughout t he thoracic spine. No lytic or blastic bony lesions are seen. IMPRESSION: 1. Streak and motion compromised examination. 2. There is significant wall thickening involving the trachea, central airways, and lower lobe bronch i with significant surrounding peritracheal inflammation. Mild inflammatory change is also seen throu ghout the mediastinum. An infectious etiology is favored such as tracheitis/mediastinitis, and clinic al correlation will be essential. 2. Enlarged mediastinal and hilar lymph nodes are likely reactive. 3. Cardiomegaly and emphysema. 4. Suspect superimposed airspace consolidation at the left lung base which could represent pneumonia/ aspiration pneumonitis. 5. Cardiomegaly. 6. There is aneurysmal dilatation of the ascending thoracic aorta and the aortic root which measures up to 4.8 cm in diameter. Consider nonemergent surgical assessment. 7. No pleural effusion or organized fluid collection is identified. 8. Again seen is marked and asymmetric cortical atrophy of the left kidney as compared the right. 9. Additional findings as above. ACT 112: Positive. There are findings on this exam that require communication between the performing entity and the patient following Patient Test Result Information Act ([place] Act 112) guidelines. Electronically signed by: Artie De La Cruz M.D. 02/24/2021 8:05 AM
--- NOTE | 2021-02-24 08:18 | XRay Report ---
SINGLE VIEW CHEST CLINICAL HISTORY: Sepsis. FINDINGS: An AP, portable, upright chest radiograph is compared to study dated 09/04/2020. Correlatio n is made with chest CT dated 02/25/2020. The heart is mildly enlarged noting atherosclerotic calcific ation of the thoracic aorta. Mild mediastinal widening corresponds to known aortic aneurysm.. Emphyse ma and chronic interstitial thickening is similar to previous. There are bibasilar airspace opacities . Scarring/atelectasis is noted at the lung bases. No large pleural effusion or pneumothorax is seen. The skeletal structures are osteopenic. The bony thorax is grossly intact. IMPRESSION: 1. There are bibasilar airspace opacities which could represent scarring/atelectasis versus a mild in fectious/inflammatory pneumonitis. 2. Cardiomegaly and emphysema. There is no radiographic evidence of congestive failure. 3. Mild widening of the mediastinum corresponds to known aortic aneurysm. ACT 112: Negative or not required by law. Electronically signed by: Artie De La Cruz M.D. 02/24/2021 8:17 AM
[2021-02-24] MEDS: HEPARIN SOD 5,000 UNIT/0.5 ML VIAL SQ SCH (08:57)
[2021-02-24] MEDS: ARTIFICIAL TEARS OP SCH ×3 (08:57→18:49)
[2021-02-24] MEDS ORDERED: ALFUZOSIN HCL 10 MG TAB PO SCH (09:00)
[2021-02-24] MEDS ORDERED: PANTOprazole 40 MG TAB PO SCH (09:00)
[2021-02-24] MEDS: SODIUM CHLORIDE 0.9% 1000ML 1,000 ML IV SCH ×2 (09:00→18:49)
--- NOTE | 2021-02-24 10:33 | Medical Student Progress Note ---
Date of Service February 24, 2021 Assessment & Plan Admission and Anticipated Discharge Date Admission Date: February 24, 2021 Subjective Pt is a 76 yo male with a history of cognitive impairment who presented this morning for altered mental status and fell off the toilet. He was brought in to the ER by his sister. Sister said that at times he would hold food in his mouth leading to risk of aspiration. He had a productive cough with a temperature of 83.1 C and 86% oxy sat but a WBC was normal. She was treated with IV cefepime and levaquin. Chest xray showed B/L lower lobe opacities, note: right appears worse than the left. Head CT scan showed no ICH, mass effect, or edema. There was also no evidence of an acute cortical stroke. He was admitted for possible aspirational pneumonia vs atelectasis. Today, the patient was difficult to communicate with due to hearing loss and apparent confusion but cooperative. He does report pain when he pees and endorses a cough. He does not endorse chest pain or abdominal pain. His sister plans to bring in his dentures and hearing aid today. Review of Systems Respiratory: + cough Cardiovascular: no chest pain Gastrointestinal: no abdominal pain Genitourinary: + dysuria Neurologic: + confusion Physical Exam Physical Exam: Gen: Pt was awoken from sleep for history and exam. He was oriented to self and location. He was not in acute distress. Cardio: Sinus tachycardia, S1 and S2 heart sounds Resp: labored breathing, Results & Data ([facility]) Vital Signs (Past 12 Hours) Vital Signs Temp Pulse Pulse Resp BP BP Pulse Ox 02/24/21 07:42 37.9 C H 129 H 18 133/84 90 02/24/21 07:10 115 H 26 H 93 02/24/21 06:20 38.8 C H 115 H 120 H 33 H 148/86 H 02/24/21 05:12 120 H 26 H 156/74 H 92 02/24/21 05:02 120 H 26 H 88 L 02/24/21 04:31 135 H 40 H 91 02/24/21 04:29 135 H 40 H 184/98 H 92 02/24/21 04:16 146 H 33 H 184/98 H 91 02/24/21 04:15 146 H 36 H 93 02/24/21 04:05 141 H 40 H 93 02/24/21 04:00 134 H 30 H 84 L 02/24/21 03:45 130 H 24 98 02/24/21 03:41 121 H 28 H 147/87 H 95 02/24/21 03:30 33 H 147/87 H 96 02/24/21 03:22 124 H 41 H 100 02/24/21 03:11 122 H 24 99 02/24/21 03:00 29 H 95 02/24/21 02:59 119 H 26 H 131/97 91 02/24/21 02:51 92 02/24/21 02:31 105 H 26 H 171/89 H 90 02/24/21 02:30 110 H 34 H 91 02/24/21 02:15 120 H 28 H 91 02/24/21 02:06 126 H 24 176/86 H 92 02/24/21 02:00 95 02/24/21 01:45 92 02/24/21 01:31 94 02/24/21 01:30 164/128 H 94 02/24/21 01:16 128 H 31 H 92 02/24/21 01:15 127 H 29 H 165/114 H 88 L 02/24/21 01:14 125 H 22 183/154 H 92 02/24/21 01:01 122 H 15 95 02/24/21 01:00 119 H 18 176/109 H 92 02/24/21 00:56 121 H 28 H 84 L 02/24/21 00:55 126 H 34 H 180/93 H 02/24/21 00:53 38.1 C H 120 H 28 H 180/93 H 86 L Pulse Ox 02/24/21 07:42 02/24/21 07:10 02/24/21 06:20 93 02/24/21 05:12 02/24/21 05:02 02/24/21 04:31 02/24/21 04:29 02/24/21 04:16 02/24/21 04:15 02/24/21 04:05 02/24/21 04:00 02/24/21 03:45 02/24/21 03:41 02/24/21 03:30 02/24/21 03:22 02/24/21 03:11 02/24/21 03:00 02/24/21 02:59 02/24/21 02:51 02/24/21 02:31 02/24/21 02:30 02/24/21 02:15 02/24/21 02:06 02/24/21 02:00 02/24/21 01:45 02/24/21 01:31 02/24/21 01:30 02/24/21 01:16 02/24/21 01:15 02/24/21 01:14 02/24/21 01:01 02/24/21 01:00 02/24/21 00:56 02/24/21 00:55 02/24/21 00:53
[2021-02-24] MEDS: PANTOprazole 40 MG in SYRINGE 0 ML IV SCH (11:14)
[2021-02-24] MEDS: methylPREDNISolone 40 MG in SYRINGE 0 ML IV SCH ×2 (11:14→18:49)
--- NOTE | 2021-02-24 11:37 | Electrocardiogram Report ---
Test Reason : Blood Pressure : / mmHG Vent. Rate : 122 BPM Atrial Rate : 122 BPM P-R Int : 166 ms QRS Dur : 088 ms QT Int : 314 ms P-R-T Axes : 079 -75 079 degrees QTc Int : 447 ms Sinus tachycardia Possible Left atrial enlargement Left anterior fascicular block Incomplete right bundle branch block Abnormal ECG When compared with ECG of 04-SEP-2020 20:35, Premature ventricular complexes are no longer Present Confirmed by Carlton Robin ([id number]) on 02/24/2021 11:36:53 AM Referred By: REFERRED SELF Confirmed By:Louie Robin
--- NOTE | 2021-02-24 13:37 | XRay Report ---
XR chest 1V portable HISTORY: Worsening O2 requirement; resp distress COMPARISON: Chest 02/24/2021. FINDINGS: Hyperexpanded lungs with emphysema. Patchy airspace opacities within the right mid to lower lung zones which have progressed. Mild congestive change is again noted. There is a small right pleu ral effusion. The heart is normal in size. IMPRESSION: 1. Progressive patchy airspace opacities within the right mid to lower lung zones. This likely repres ents a pneumonia and could be due to aspiration. 2. Mild congestive change and a small right pleural effusion. ACT 112: Negative or not required by law. Electronically signed by: Sam Parker M.D. 02/24/2021 1:35 PM
[2021-02-24 13:51] LABS: Allen Test Pos (Pos); Base Excess ABG 1.5 mEq/L (-9-1.8); HCO3 ABG 26 mmol/L (19-24); Oxygen Saturation ABG 92.1 % (90-95); PCO2 ABG 38 mmHg (35-46); PO2 ABG 56 mmHg (80-95); pH ABG 7.44 (7.35-7.45)
[2021-02-24] MEDS ORDERED: MoRPHine SULFATE 5 MG/0.25 ML UDP PO PRN (15:14)
[2021-02-24] MEDS ORDERED: LORazepam 0.5 MG/1 ML VIAL IV PRN (15:14)
[2021-02-24] MEDS ORDERED: ATROPINE SULFATE 1% OP SOLN 5 ML BTL SL PRN (15:30)
--- NOTE | 2021-02-24 17:33 | Hospitalist Progress Note ---
Date of Service February 24, 2021 Assessment & Plan (1) Encephalopathy acute: This is a 76-year-old gentleman with a notable past medical history of cognitive impairment, prostate cancer, GERD, hyperlipidemia who presented to [facility] with his sister who noted increased altered mental status. He was found to be in acute hypoxic respiratory failure and required supplemental O2. His chest CT did reveal evidence of possible mediastinitis as well as tracheitis, alongside aspiration pneumonia. After thorough discussion with the family today (see HPI), patient was transitioned to comfort care. 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 We thoroughly discussed comfort care and transition to hospice. Comfort measures only, orders placed Case management aiding in pursuit of hospice; in the interim, will provide comfort services here Palliative care consulted, appreciate insight and recommendations Discontinue daily labs, IV fluids and medications Eye care, nausea management, anxiety management Roxanol as needed for air hunger and discomfort DNR/DNI Case management actively following, helping in selection of possible hospice services as appropriate for the patient specific situation Suspected tracheitis, mediastinitis, and aspiration pneumonia -- with notable history of recent aspiration In the setting of acute hypoxic respiratory failure, as well as CT findings concerning for significant thickening of the trachea, central airways, and lower lobe bronchi, representing likely tracheitis/mediastinitis Thorough discussion held today about possible management options for these problems in the setting of worsening acute hypoxic respiratory failure; as noted in narrative of HPI. 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 recommended per speech Code: DNR/DNI (2) Hypoxia: (3) Abnormal CT of the abdomen: (4) Urinary tract infection: (5) Chronic GERD: (6) Thrombocytopenia: (7) Mediastinitis: Admission and Anticipated Discharge Date Admission Date: February 24, 2021 Supervising Physician Co-Signing Physician Notes Attending attestation Pt seen and examined in concert with Dr. Olivas. In agreement with the documented findings as noted in the resident documentation with any exceptions or additions as noted here. Patient restless in bed with progressively increasing O2 need, unable to appropriately answer questions. On examination, S1/S2 present, tachycardic. Scattered adventitious sounds with decreased BS at bases. Abd NT/ND BS+ve Contacted family alongside Dr. Olivas regarding present deterioration of respiratory status and reviewed care with POA who reports that patient would not want any prolongation of his life by artificial means oleg ventilation and additionally would likely not want transfer to tertiary facility for further raven ting. After discussion of these items, transitioned to comfort care. Mediastinitis with underlying pneumonia likely 2/2 aspiration - transition from aggressive abx therapy to pain control with morphine and symptom control as noted Else see resident documentation as noted. Total time spent on this patient's case including management, goals of care, transition of resuscitation status, coordination of care (over 50% spent on counseling): 70 minutes. Subjective Patient seen at the bedside this morning. Unable to obtain meaningful history because of profound hearing impairment as well as baseline mentation. He does appear to be tachypneic on my arrival. He denies feeling short of breath. He denies any pain or discomfort. Denies feeling ill. Does say that he is tired. During the beginning of the day, patient did have a 6 L oxygen requirement. Per sister, who patient lives with, patient does not generally have an oxygen requirement at home. Over the course of the morning and into the early afternoon, oxygen requirement increased significantly to 12 to 15 L by mask. At this time, he did report feeling tired, but not in any distress. The patient sister, who is the patient's designated medical decision-maker, was called at this time to review the patient's case. Informed her of the imaging findings, including aspiration pneumonia, tracheitis, and mediastinitis. Explained the current need for increasing O2. We did discuss the possible routes of care, including intensive medical treatment versus shifting focus to comfort given patient's current status. Of note, patient was listed as full code upon arrival. We did explain how with this current increase in oxygen requirement, it was possible that he may need noninvasive or invasive ventilation to aid with his breathing, intensive care unit level care, and possible transfer to tertiary care facility in the context of his illness and imaging findings. Patient lyndon bautista noted that they have discussed this before, such as intensive therapies to aid with breathing, and she noted that he did not and she does not want anything invasive that would prolong his life. With this being said, she brought up the possibility of shifting focus to comfort. At that time, we reviewed generally how comfort care works, the services it provides, and the aims of this route versus intensive medical therapy. She wanted to pursue this route and believes he would too. Sister and her were advised that with increasing oxygen requirement, visitation at this time would be optimal to see patient and discuss further. At the bedside, patient, patient's sister, and [id number] were present during discussion. Patient was minimally engaged given baseline mentation and somnolence. Patient sister reconfirms that she wants to pursue comfort measures and does not want him resuscitated or intubated. Engaged in reflective listening, emotional support provided. After this time, comfort measure protocol was activated, palliative care was consulted, and patient was made DNR/DNI. Review of Systems Review of Systems: As per HPI Physical Exam Physical Exam: General: 76 year old male who is lying back in his hospital bed, somnolent, but responsive to touch. He answers questions with one-two word phrases. NAD. HEENT: NCAT. Eyes - Sclera are white, anicteric, and without injection. Neck - supple and without significant LAD. No JVD Cardiac: Normal rate and regular rhythm; S1 and S2 present with no murmurs, rubs, or gallops. Pulmonary: Tachypnea. Increased respiratory effort, but no distress. One-two word phrases. Mild use of accessory muscles. Resonance of upper airway sounds. Diminished of breath sounds on R compared to L. Abdominal: Abdomen was soft, nondistended, and non-tender to palpation. No hepatomegaly or splenomegaly. Extremities: Upper and lower extremities are warm and well perfused. No peripheral edema. Capillary refill ~3 seconds. Results & Data Results & Data ([facility]) Vital Signs (Past 12 Hours) Vital Signs Temp Pulse Pulse Resp BP Pulse Ox Pulse Ox 02/24/21 15:51 37.1 C 105 H 21 132/70 92 02/24/21 13:45 28 H 90 02/24/21 13:25 32 H 88 L 02/24/21 12:35 28 H 88 L 02/24/21 12:25 115 H 32 H 84 L 02/24/21 10:52 93 H 26 H 91 02/24/21 10:48 36.7 C 97 H 23 138/72 92 02/24/21 07:42 37.9 C H 129 H 18 133/84 90 02/24/21 07:10 115 H 26 H 93 02/24/21 06:20 38.8 C H 115 H 120 H 33 H 148/86 H 93 Resident Activity Tracking Resident Involvement: Resident Care Provided Care Provided: Adult Hospital Medicine
[2021-02-24] MEDS ORDERED: CETIRIZINE HCL 10 MG TABLET PO SCH (21:00)
[2021-02-24] MEDS: ERYTHROMYCIN OP OINT 5 MG/GM 3.5 GM TUBE OPL SCH (21:37)
[2021-02-25] MEDS: ARTIFICIAL TEARS OP SCH ×4 (02:06→19:35)
--- NOTE | 2021-02-25 06:23 | Billing Data ---
Date of Service February 25, 2021 Coding Level of Care Code 90101 Initial Inpt Care Lvl 3
--- NOTE | 2021-02-25 14:02 | Hospitalist Progress Note ---
Date of Service February 25, 2021 Assessment & Plan (1) Encephalopathy acute: This is a 76-year-old gentleman with a notable past medical history of cognitive impairment, prostate cancer, GERD, hyperlipidemia who presented to [facility] with his sister who noted increased altered mental status. He was found to be in acute hypoxic respiratory failure and required supplemental O2. His chest CT did reveal evidence of suspected mediastinitis as well as tracheitis, alongside aspiration pneumonia. After thorough discussion with the family (02/24), patient was transitioned to comfort care. Goals of care -- [employer]NER [employer]MER Please refer to note on 02/24/2021 for extensive details regarding transition to [employer]MER Family's wishes to pursue discontinuation of intensive medical therapy, including antibiotics and steroids, in favor of promoting his comfort. Comfort measures ordered Case management aiding in pursuit of possible hospice placements Palliative care consulted, appreciate insight and recommendations Abstain from daily labs, IV fluids and maintenance medications Eye care, nausea management, fever/pain management, anxiety management Roxanol as needed for air hunger and discomfort Patient is n.p.o. right now given aspiration risk; can certainly work with family with specific needs RE: limited comfort diet as needed Andujar catheter removal as needed, replacement with depends or pad or bedside urinal DNR/DNI Suspected Aspiration PNA + Tracheitis + Mediastinitis -- with notable history of recent aspiration In the setting of acute hypoxic respiratory failure, as well as CT findings concerning for significant thickening of the trachea, central airways, and lower lobe bronchi, representing likely tracheitis/mediastinitis Oxygen requirements continue to be quite high, averaging over 15 L/min to maintain saturations above 85% Patient has no oxygen requirement at home Discontinue steroids, antibiotics on 02/24 in alignment with comfort care Encephalopathy Baseline cognition limited per family Waxing and waning: At times he is alert and interactive with his family and providers, and other times he is quite somnolent Likely contributory from infectious/inflammatory process, as above CT head negative Comfort measures, delirium precautions as above Dispo: MedSurg, [employer] Diet: N.p.o. recommended per speech given high risk of aspiration / otherwise as above Code: DNR/DNI (2) Hypoxia: (3) Abnormal CT of the abdomen: (4) Urinary tract infection: (5) Chronic GERD: (6) Thrombocytopenia: (7) Mediastinitis: Admission and Anticipated Discharge Date Admission Date: February 24, 2021 Supervising Physician Co-Signing Physician Notes Attending attestation Pt seen and examined in concert with Dr. Olivas. In agreement with the documented findings as noted in the resident documentation with any exceptions or additions as noted here. Resting in bed responsive early AM to voice with progressive decline in responsiveness with increased tachypnea Comfort measures only with new mediastinitis/tracheitis - transition to IV morphine on fixed schedule with consideration of morphine drip with deterioration of comfort/worsening tachypnea with addition of lorazepam if needed Aspiration pneumonia - tolerating hiflow with maintained LOC and comfort. Will continue, but would be reasonable to withdraw as condition progresses. Else see resident documentation as noted. Subjective Patient seen at bedside this morning with his sister and [id number]. Compared to yesterday afternoon, patient is more alert and interactive with surroundings. He does appear relaxed. He answers questions freely does cough quite a bit and appears tachypneic. On several occasions to me, he does mention this Andujar catheterdoes not exactly say but it is uncomfortable, but with limited cognition unsure if this may be the case. Discussed with family, who thinks he may be indicating that it is uncomfortable. Discussed option of removal, which they were amenable with. As he went to sleep right after, it was left in; but can certainly be removed at any time. Patient also mention to me that his oxygen mask is somewhat bothersome on his face. Per nursing report, he does seem to wax and wane throughout the daythis afternoon, he does appear more somnolent than in the morning. Family by the bedside. Review of Systems Review of Systems: as per HPI Physical Exam Physical Exam: General: 76 year old male who is lying back in his hospital bed, more responsive today than yesterday. Appears relaxed and comfortable. NAD. HEENT: NCAT. Eyes - Sclera are white, anicteric, and without injection. Neck - supple and without significant LAD. No JVD Cardiac: Normal rate and regular rhythm; S1 and S2 present with no murmurs, rubs, or gallops. Pulmonary: Tachypnea. Increased respiratory effort, but no distress. Mild use of accessory muscles. Pronounced resonance of upper airway sounds. Diminished of breath sounds on R compared to L still. Abdominal: Abdomen was soft, nondistended, and non-tender to palpation. No hepatomegaly or splenomegaly. Extremities: Upper and lower extremities are warm and well perfused. No peripheral edema. Capillary refill ~3 seconds. Resident Activity Tracking Resident Involvement: Resident Care Provided Care Provided: Adult [facility]
[2021-02-25] MEDS ORDERED: MoRPHine SULFATE 2 MG/ML CARP IV PRN (16:05)
[2021-02-25] MEDS: PANTOprazole 40 MG in SYRINGE 0 ML IV SCH (16:15)
[2021-02-25] MEDS: MoRPHine SULFATE 2 MG/ML CARP IV SCH ×3 (17:04→22:25)
[2021-02-25] MEDS: HEPARIN SOD 5,000 UNIT/0.5 ML VIAL SQ SCH (17:47)
[2021-02-25] MEDS: ERYTHROMYCIN OP OINT 5 MG/GM 3.5 GM TUBE OPL SCH (19:35)
[2021-02-26] MEDS: MoRPHine SULFATE 2 MG/ML CARP IV SCH ×8 (01:46→22:20)
[2021-02-26] MEDS: ARTIFICIAL TEARS OP SCH ×4 (07:40→20:52)
[2021-02-26] MEDS: PANTOprazole 40 MG in SYRINGE 0 ML IV SCH (11:28)
--- NOTE | 2021-02-26 17:49 | Hospitalist Progress Note ---
Date of Service February 26, 2021 Assessment & Plan (1) Encephalopathy acute: This is a 76-year-old gentleman with a notable past medical history of cognitive impairment, prostate cancer, GERD, hyperlipidemia who presented to [facility] with his sister who noted increased altered mental status. He was found to be in acute hypoxic respiratory failure and required supplemental O2. His chest CT did reveal evidence of aspiration PNA and tracheitis; mediastinitis is considered less likely at this time. After thorough discussion with the family (02/24-), patient was transitioned to comfort care. Goals of care -- CONSUMER AFFAIRS SPECIALIST Please refer to note on 02/24/2021 for extensive details regarding initial transition to CONSUMER AFFAIRS SPECIALIST Please refer to narrative above, and attending's attestation, for discussion that occurred today RE: goals of care with patient's current state Family's wishes to pursue discontinuation of intensive medical therapy, including antibiotics and steroids, in favor of promoting his comfort continue Comfort measures ordered Palliative care consulted, appreciate insight and recommendations Abstain from daily labs, IV fluids and maintenance medications Eye care, nausea management, fever/pain management, anxiety management Morphine 2mg IV q3h DAMIAN for air hunger, cough --> additional +2mg q3h on file for breakthrough discomfort Discussion held regarding weening oxygen, expectations in context of comfort. Consider morphine gtt at that time, as appropriate. Patient is n.p.o. right now given aspiration risk; can certainly work with family with specific needs RE: limited comfort diet as needed Case management following, providing insight on hospice placement options Andujar catheter removal as needed, replacement with depends or pad or bedside urinal DNR/DNI Suspected Aspiration PNA + Tracheitis + Mediastinitis -- with notable history of recent aspiration In the setting of acute hypoxic respiratory failure, as well as CT findings concerning for significant thickening of the trachea, central airways, and lower lobe bronchi, representing likely tracheitis Oxygen requirements continue to be quite high, averaging over 15 L/min to maintain saturations above 85% Patient has no oxygen requirement at home Discontinue steroids, antibiotics on 02/24 in alignment with comfort care. Otherwise as above Oxygen weening expectations as above -- appreciate case management input on facilities that might have limits regarding O2 Symptomatic care, as above Encephalopathy Baseline cognition limited per family Waxing and waning: At times he is alert and interactive with his family and providers, and other times more somnolent. In general, improving. Likely contributory from infectious/inflammatory process, as above CT head negative Comfort measures, delirium precautions as above Dispo: MedSurg, CONSUMER AFFAIRS SPECIALIST Diet: N.p.o. recommended per speech given high risk of aspiration / otherwise as above Code: DNR/DNI (2) Hypoxia: (3) Abnormal CT of the abdomen: (4) Urinary tract infection: (5) Chronic GERD: (6) Thrombocytopenia: (7) Mediastinitis: Admission and Anticipated Discharge Date Admission Date: February 24, 2021 Supervising Physician Co-Signing Physician Notes Attending attestation Pt seen and examined in concert with Dr. Olivas. In agreement with the documented findings as noted in the resident documentation with any exceptions or additions as noted here. Baseline responsiveness with good interaction and limited tachypnea on 15L oxy mask Extensive conversation with family today regarding goals of care: in the setting of the current clinical picture, the patient likely had his original severe hypoxia and decline 2/2 aspiration pneumonitis concomitant with the loss of consciousness episode which has stabilized into an aspiration pneumonia which has less invasive treatment options than previous, but with an unknown underlying cause as the patient has had a recent endoscopy with esophageal dilation within the last six months, as well as ongoing attention/dementia related issues with swallowing including pouching and holding food in his mouth/distraction. The patient has also been managed for prostate cancer with little relief from his treatment and now has difficulty with bowel and bladder continence following brachytherapy. He is also suffering from considerable visual impairment 2/2 corneal abrasion which is currently being managed in the outpatient setting. The patient has been in the care of his sister and her for the last 20+ years, at home, with minimal help. They are the POA. After discussing the shift in the patient's condition and its more favorable prognosis in the short term but with questions about recurrence, the unknown u nderlying cause and need to perform further, more invasive evaluation, and the patient's underlying chronic health conditions and current quality of life preceding this event, the family has made the informed decision to continue with comfort measures only at this time with DNR/DNI in place and nonescalation of care. I have discussed as well the end setting of the patient's care and the patient's sister is hesitant to agree to home care as they were overwhelmed by his care prior to his decompensation. I have consulted palliative care to assist in these conversations and d/w Stayc Garvin today on the phone to help ease the transition. Lastly, I discussed the likelihood of transitioning off the supplemental O2 and increasing the morphine dose for resultant respiratory distress with the end goal of placement outside the hospital on hospice, to which the family was agreeable. Comfort measures with aspiration pneumonia and tracheitis - IV morphine on fixed schedule with consideration of morphine drip with deterioration of comfort/worsening tachypnea with addition of lorazepam if needed Aspiration pneumonia - tolerating hiflow with maintained LOC and comfort to be transitioned to medical sx management if rec'd by palliative care, and will likely assist in placement if that is desired. Else see resident documentation as noted. Total attending time spent in face to face communication with the patient and family as noted above: 1500 to 1630: 90 minutes. Subjective Patient seen at the bedside this morning, reports feeling well overall. No acute events overnight. Coughing has reduced compared to yesterday, seems to be tolerating morphine well overall. Compared to yesterday, do think patient looks slightly betterhowever it is difficult to determine what improvements are organic versus improvement from the morphine. Given this observation, as well as the persistence of 15 L of oxygen needed to saturate between 85 and 91%), did discuss with family about the patient's current status. To review, when patient came in, he was deteriorating quite fastwith rapidly increasing oxygen requirements, altered mental status, and overall functional decline. While his oxygen requirement has persisted since that time (and has not improved), his overall alertness, awareness, and general impression have improved. I discussed with family that from a physiologic perspective, I do believe that in some cases he has plateauedthat is, from his active aspiration pneumonia/tracheitis, he does not seem to be clinically deteriorating into today, as was previously expected to be the case. With this, and with review of his CT scan obtained a few days ago with radiology and pulmonology, I reviewed that it may be possible that his previous clinical and physiologic deterioration was borne of active aspiration (in the context of chronic aspiration). We discussed that if this was the case, it may be feasible to attempt to treat the aspiration pneumonia and possible tracheitis, with possible reevaluation of swallowing fxn, etc. thereafter. However, did acknowledge that it is difficult to predict the exact degree of recovery that could be expected; the family also reflected on the fact that this is complicated by his gradual functional decline, chronic aspiration, and the risk of that this could happen again. They feel over the last year, his health and overall wellbeing has declined quite a bit. With this, CONSUMER AFFAIRS SPECIALIST was not excluded as a possibility. Engaged in reflective listening and provided comfort and support, noting the very difficult situation this was. The sister, ELEAZAR, noted that it has been extremely taxing and difficult to take care of the patient, and worry about his quality of life in something like a SNF if it were to be required and if something like this were to happen again -- which is certainly possible -- the QOL he'd have by coming/going to the hospital so frequently. She and her requested time to discuss this situation, pursuing intensive medical treatment versus maintaining CONSUMER AFFAIRS SPECIALIST. The patient was intermittently awake throughout this conversation; engagement attempted at various points, without significant responses. It was held at his bedside and he was intermittently asked questions to give his insight. Further discussions were held thereafter between Dr. Hayes and the family. Please refer to his documentation for further details and clarification. Review of Systems Review of Systems: as per HPI Physical Exam Physical Exam: General: 76 year old male who is lying back in his hospital bed, more responsive today than yesterday. Appears relaxed and comfortable. NAD. HEENT: NCAT. Eyes - Sclera are white, anicteric, and without injection. Neck - supple and without significant LAD. No JVD Cardiac: Normal rate and regular rhythm; S1 and S2 present with no murmurs, rubs, or gallops. Pulmonary: Tachypnea. Increased respiratory effort, but no distress. Mild use of accessory muscles. Pronounced resonance of upper airway sounds. Diminished of breath sounds on R compared to L still. Abdominal: Abdomen was soft, nondistended, and non-tender to palpation. No hepatomegaly or splenomegaly. Extremities: Upper and lower extremities are warm and well perfused. No peripheral edema. Capillary refill ~3 seconds. Results & Data Results & Data ([facility]) Vital Signs (Past 12 Hours) Vital Signs Temp Pulse Resp BP Pulse Ox 02/26/21 10:42 36.2 C L 104 H 22 186/99 H 91 Resident Activity Tracking Resident Involvement: Resident Care Provided Care Provided: [facility]
[2021-02-26] MEDS: ERYTHROMYCIN OP OINT 5 MG/GM 3.5 GM TUBE OPL SCH (20:52)
[2021-02-27] MEDS: MoRPHine SULFATE 2 MG/ML CARP IV SCH ×8 (01:38→23:36)
[2021-02-27] MEDS: ARTIFICIAL TEARS OP SCH ×4 (08:23→22:19)
--- NOTE | 2021-02-27 11:25 | Palliative Care Consultation ---
Date of Consultation February 27, 2021 Assessment & Plan (1) Palliative care encounter: This patient is a 76 year old male who presented to the [facility] with hypoxia and altered mental status. He is fully cared for at home by his sister, Lo, for the past 20+ years. Upon arrival, he was discovered to be hypoxic with SpO2 in the 70's. Additionally, a CT scan did reveal aspiration PNA which is a current complication for him and tracheitis. Additional PMH includes: intellect challenge, prostate cancer, HLD, and GERD. Over the weekend, there was consideration and discussion regarding the thickening of his trachea and whether treatment for the tracheitis was indicated, given the complexity of his overall illness and medical picture. Palliative Medicine was consulted over the weekend for goals of care discussion, and ultimately he was transitioned to comfort measure focused care. I met with Mr. Castaneda "[place]" Mil and his sister Lo and brother in law Ceballos in his room. Apparently, he was pretty confused and even obtunded at some point over the weekend, but now has been awake, alert, and oriented near his baseline for the past 24 hours. Lo went into extensive details regarding her brothers ailments and care needs over the past 20+ years, with him overall declining in more recent years. He has prostate cancer, recurrent aspiration, is full care for all of his ADL's and has been increasingly challenging to care for at home. I did discuss counseling recommendations for the family as this transition will be very challenging. They have discussed his care with numerous family members, who are all in agreement with this transition. When taking a step back to look at the overall picture, we have an individual that has complex medical needs, now on supplemental oxygen, and has required full care for an extended amount of time. We also discussed overall caregiver burnout. Regardless of the ability to place him in a skilled facility for treatment, we did review his POA and advanced directive that was signed in 2016 indicating that he would not want CPR, intubation, hemodialysis, artificial feeding tubes or nutrition, nor antibiotics for life-prolonging treatment. We did discuss the option of trialing abx treatment and placement at a SNF, which was declined by family. This family is fully informed of all aggressive and even conservative treatment measures and while they understand that as an option, this, in their eyes, is 'one more thing' we can do from a medical standpoint and there will always be 'one more thing' that can be done. Family's wishes to pursue i discontinuation of intensive medical therapy, including antibiotics and steroids, in favor of promoting his comfort. As the patient is awake, this process may take longer than anticipated. For now, continue scheduled morphine for air hunger, grimacing, and intermittent furrowed brow. PRN Morphine available Q1 PRN on top of the scheduled dosing. Patient is tachycardic in the 100's, and also hypertensive 190/100. Instructed nursing to gradually wean oxymask and transition to nasal canula which is supported by the family. Currently, weaned to 12L oxymask and over the next few hours will be on nasal canula. Spot check SpO2 for assessment purposes. Currently at 90%. Should the patient live for more than a few days, which he may, without overall decline, I set expectation about sourcing placement with hospice. They requested [facility];however, has not been established there prior as a patient and that is a [facility]. I explained that I would discuss the above with case management to look at some SN[facility]. Palliative Medicine discussed all of the above with the hospitalist, nursing and case management. We will follow to assist with symptom management needs and support for family towards end of life. Life expectancy days to weeks. (2) Hypoxia: Pt with chronic aspiration. Patient with suspected tracheitis. Pt currently on 15L oxymask, wean to supplemental nasal canula with morphine administration for air hunger needs. (3) Altered mental status: Some encephalopathy noted when arrived to ED. Returned to near baseline, per family. Sister Lo is his legal POA. Advanced directive on chart. Altered mental status type: delirium Qualified Code(s): R41.0 - Disorientation, unspecified (4) Cognitive developmental delay: Some intellect disability and pt unable to be sole decision maker for medical decision making. Sister Lo is his legal POA. Advanced directive on chart. (5) Prostate cancer: Currently receiving treatment, was to have a repeat scan in one month. There was suspicion that rectum was becoming involed with mets. (6) Cachexia: full care at home. Overall decline over the past few years. Full care with ADL's including eating. Decreased appetite lately. cachexia noted and severe protein malnourishment. Albumin 3.1 History of Present Illness Reason for Consultation: Goals of care Requesting Physician: Dr. Sam Olivas Attending Physician: Sam Mclaughlin DO History of Present Illness This patient is a 76 year old male who presented to the [facility] with hypoxia and altered mental status. He is fully cared for at home by his sister, Lo, for the past 20+ years. Upon arrival, he was discovered to be hypoxic with SpO2 in the 70's. Additionally, a CT scan did reveal aspiration PNA which is a current complication for him and tracheitis. Additional PMH includes: intellect challenge, prostate cancer, HLD, and GERD. Over the weekend, there was consideration and discussion regarding the thickening of his trachea and whether treatment for the tracheitis was indicated, given the complexity of his overall illness and medical picture. Palliative Medicine was consulted over the weekend for goals of care discussion, and ultimately he was transitioned to comfort measure focused care. Please see A/P for further details. Thanks for involving Palliative Medicine with this individual. Allergies Allergy/AdvReac Type Severity Reaction Status Date / Time alendronate sodium AdvReac Intermediate Nausea Verified 02/24/21 01:11 tamsulosin AdvReac Intermediate Nausea Verified 02/24/21 01:11 Home Medications Medication Instructions Recorded Confirmed Type cetirizine 10 mg capsule 10 mg PO QPM cap 04/28/20 02/24/21 History cholecalciferol (vitamin D3) 25 2,000 unit PO QPM tab 05/09/20 02/24/21 History mcg (1,000 unit) tablet calcium carbonate [Tums Ultra] 400 mg PO QPM 08/17/20 02/24/21 History alfuzosin 10 mg tablet,extended 10 mg PO DAILY #30 tab 01/09/21 02/24/21 Rx release 24 hr loperamide 1 mg/7.5 mL oral liquid 2 mg PO DAILY PRN ml 01/09/21 02/24/21 History leuprolide (3 month) 22.5 mg (3 22.5 mg SUBCUT ONCE #1 ea 01/27/21 02/24/21 Rx month) subcutaneous syringe omeprazole 20 mg capsule,delayed 20 mg PO QAM #90 cap 02/14/21 02/24/21 Rx release carboxymethylcell-glycerin(PF) 1 drp OPHTHALMIC (EYE) QID 02/24/21 02/24/21 History [Refresh Optive Sensitive (PF)] erythromycin 1 inch OPL HS 02/24/21 02/24/21 History Patient History Medical History Asthma controlled Atrophy of left kidney Bladder diverticulum Cachexia Cerebral palsy per records, sister (Lo) denies Chronic GERD controlled Diffuse nontoxic goiter Enlarged prostate without lower urinary tract symptoms (luts) Esophageal dysmotility Gait disturbance Hyperlipidemia Hyperparathyroidism Intellectual disability lives alone/independently, able to read/write, sister lives next door (POA) Nephrolithiasis Osteoporosis Palliative care encounter Sensory hearing loss Skin cancer of anterior chest SCC Surgical History H/O colonoscopy Tubular adenoma H/O parathyroidectomy History of cataract surgery R/L History of lung biopsy 2002 ([facility] > for lung abscess), 2005 ([place] > resulted in pneumothorax) History of placement of ear tubes + subsequent removal History of prostate biopsy x3 History of prostate surgery History of surgery Bilateral upper eyelids (for eyelid drooping) Hx of cholecystectomy laparoscopic S/P skin biopsy Mohs surgery for BCC on face (02/2020) Family History Mother , 77yo AAA (abdominal aortic aneurysm) Enlarged heart Alzheimer disease Hypertension Father , 77yo COPD (chronic obstructive pulmonary disease) Hypertension Stroke Sister Hypertension Grandfather (Maternal) Diabetes Other Hyperlipidemia Osteoporosis Thyroid cancer Denies family history of Ovarian cancer Prostate cancer Myocardial infarction Breast cancer Colorectal cancer Social History Smoking Status: Never smoker Second Hand Exposure: Yes (FATHER SMOKED PIPE); Hx Alcohol Use: No Hx Substance Use: No Preferred Language: Uzbek Communication Ability: Effective Visual Impairment: No Limitations Hearing Ability: Use of Hearing Aid Machine Packer Required: No Beliefs That Will Affect Care: None marital status: Single Current Living Situation: Alone Current Living Situation Comment: Lives next door to sister per previous records current occupational status: disabled Other Information That Helps Us Care for You: No Feels Safe at Home: Yes caffeine: No during the past year weight has: remained stable Dental Care, Regularly: No Physical Activity Frequency: Daily Seatbelt Use: always Assistive Devices: Hearing Aid - Bilateral Review of Systems Review of Systems: [place] System Assessment Scale: Pain: 1/3 Tiredness: 1/3 Lack of Appetite: 2/3 Shortness of breath: 1/3 Palliative Performance Scale: 20% Physical Exam Constitutional: + thin, + cachectic, + frail appearing, cooperative and comfortable ENMT: Nose: + dry nasal mucous membranes Respiratory: normal respiratory effort and + cough Auscultation: + rhonchi Cardiovascular: Rate/Rhythm: regular rhythm and + tachycardic Heart Sounds: normal S1 and normal S2 Extremities: normal capillary refill; no edema Gastrointestinal (Abdomen): normal bowel sounds, soft, nontender, no hepatosplenomegaly Skin: + dry skin and + pallor Psychiatric: Orientation: alert and oriented x 3 (unable to be a medical affairs leader or participate in decision making ) Estimated Intelligence: + below average estimated intelligence Insight: + impaired insight Judgement: + impaired judgement Genitourinary: Indwelling zhao catheter PG Care Time/CCT Total # of Minutes Spent Total Time Spent with Patient: Total time spent is greater than 50% in coordination of care (as documented) at patient's floor/unit and/or counseling patient: 100 minutes with > 50% of that time spent assessing the patient, discussing goals of care with the family and patient, addressing symptom management and collaborating with IDT Coding Level of Care Code 78232 Inpt Consult Level 4 Diagnoses Palliative care encounter Z51.5 Hypoxia R09.02 Altered mental status R41.0 Altered mental status type: delirium Cognitive developmental delay F81.9 Prostate cancer C61 Cachexia R64 Time Spent (min) 100
[2021-02-27] MEDS: PANTOprazole 40 MG in SYRINGE 0 ML IV SCH (11:31)
--- NOTE | 2021-02-27 12:26 | Hospitalist Progress Note ---
Date of Service February 27, 2021 Assessment & Plan (1) Encephalopathy acute: This is a 76-year-old gentleman with a notable past medical history of cognitive impairment, prostate cancer, GERD, hyperlipidemia who presented to [facility] with his sister who noted increased altered mental status. He was found to be in acute hypoxic respiratory failure and required supplemental O2. His chest CT did reveal evidence of aspiration PNA and tracheitis; mediastinitis is considered less likely at this time. After thorough discussion with the family (02/24-), patient was transitioned to comfort care. Goals of care -- TAX SERVICES SPECIALIST; DNR/DNI Please refer to note on 02/24/2021 for extensive details regarding initial transition to TAX SERVICES SPECIALIST Family's wishes to pursue discontinuation of intensive medical therapy, including antibiotics and steroids, in favor of promoting his comfort continue Abstain from daily labs, IV fluids and maintenance medications Eye care, nausea management, fever/pain management, anxiety management Morphine 2mg IV q3h DAMIAN for air hunger, cough --> additional +2mg q1h prn on file for breakthrough discomfort Discussion held regarding weening oxygen, expectations in context of comfort. -- Palliative care consulted, appreciate their assistance and recommendations. Suspected Aspiration PNA + Tracheitis + Mediastinitis -- with notable history of recent aspiration In the setting of acute hypoxic respiratory failure, as well as CT findings concerning for significant thickening of the trachea, central airways, and lower lobe bronchi, representing likely tracheitis Oxygen requirements continue to be quite high, averaging over 15 L/min to maintain saturations above 85% Patient has no oxygen requirement at home Discontinue steroids, antibiotics on 02/24 in alignment with comfort care. Otherwise as above Oxygen weening expectations as above Symptomatic care, as above Encephalopathy Baseline cognition limited per family CT head negative Comfort measures, delirium precautions as above Dispo: MedSurg, TAX SERVICES SPECIALIST Diet: N.p.o. recommended per speech given high risk of aspiration / otherwise as above. May consider diet as requested per patient after discussion with family/POA for comfort. Code: DNR/DNI (2) Hypoxia: (3) Abnormal CT of the abdomen: (4) Urinary tract infection: (5) Chronic GERD: (6) Thrombocytopenia: (7) Mediastinitis: Admission and Anticipated Discharge Date Admission Date: February 24, 2021 Supervising Physician Co-Signing Physician Notes I personally examined the patient and verified all garcia points of history and exam, discussed case, and agree with decision making with Dr Mendoza. no meaningful HPI or ROS obtainable from pt. family appreciative of care vitals noted nad heent nc at mmm breathing unlabored no accessory muscles good effort goals of care - comfort measures only. appearing comfortable. follow for how he does - ?inpatient passing vs if levels out/stabilizes - possibly SNF/hospice aspiration pneumonia w sepsis present on admission metabolic encephalopathy - multifactorial otherwise as above Subjective Patient seen and evaluated at bedside this morning. He is awake and alert but confused. Unable to obtain history secondary to altered mental status. However, patient states that he has no complaints or pain at this time. Review of Systems Review of Systems: as per HPI Physical Exam Physical Exam: GENERAL: No acute distress. Resting comfortably laying supine in bed with HOB elevated. Oxymask in place. EYES: Anicteric sclerae. HENT: Dry mucous membranes. RESPIRATORY: Currently on 15L O2 via oxymask. No increased work of breathing. Resting comfortably. CARDIOVASCULAR: Regular rate and rhythm. No murmurs. ABDOMEN: Soft, non-tender and non-distended. Normal bowel sounds. EXTREMITIES: No edema. Non-tender. SKIN: Warm, dry. No rashes or lesions. NEUROLOGIC: A/O x1 (to self only; reported year as 1924, location as "your house," and situation as "helping your "). Resident Activity Tracking Resident Involvement: Resident Care Provided Care Provided: Adult Hospital Medicine
--- NOTE | 2021-02-27 19:04 | Billing Data ---
Date of Service February 27, 2021 Coding Level of Care Code 49551 Subseq Hosp Care Lvl 2
[2021-02-27] MEDS: ERYTHROMYCIN OP OINT 5 MG/GM 3.5 GM TUBE OPL SCH (22:18)
[2021-02-28] MEDS: MoRPHine SULFATE 2 MG/ML CARP IV SCH ×8 (02:01→22:31)
[2021-02-28] MEDS: ARTIFICIAL TEARS OP SCH ×4 (08:02→20:07)
[2021-02-28] MEDS ORDERED: LORazepam 0.5 MG/1 ML VIAL IV PRN (09:07)
[2021-02-28] MEDS ORDERED: ONDANSETRON INJ 2 MG/ML 2 ML VIAL IV PRN (09:07)
[2021-02-28] MEDS ORDERED: MoRPHine SULFATE 2 MG/ML CARP IV PRN (09:13)
--- NOTE | 2021-02-28 10:53 | Hospitalist Progress Note ---
Date of Service February 28, 2021 Assessment & Plan (1) Encephalopathy acute: This is a 76-year-old gentleman with a notable past medical history of cognitive impairment, prostate cancer, GERD, hyperlipidemia who presented to [facility] with his sister who noted increased altered mental status. He was found to be in acute hypoxic respiratory failure and required supplemental O2. His chest CT did reveal evidence of aspiration PNA and tracheitis; mediastinitis is considered less likely at this time. After thorough discussion with the family (02/24-), patient was transitioned to comfort care. Goals of care -- ELECTRICAL CONTACTS ADJUSTER; DNR/DNI Please refer to note on 02/24/2021 for extensive details regarding initial transition to ELECTRICAL CONTACTS ADJUSTER Family's wishes to pursue discontinuation of intensive medical therapy, including antibiotics and steroids, in favor of promoting his comfort continue Abstain from daily labs, IV fluids and maintenance medications Eye care, nausea management, fever/pain management, anxiety management Morphine 2mg IV q3h DAMIAN for air hunger, cough --> additional +2mg q1h prn on file for breakthrough discomfort Discussion held regarding weening oxygen, expectations in context of comfort. -- Palliative care consulted, appreciate their assistance and recommendations. Suspected Aspiration PNA + Tracheitis + Mediastinitis -- with notable history of recent aspiration In the setting of acute hypoxic respiratory failure, as well as CT findings concerning for significant thickening of the trachea, central airways, and lower lobe bronchi, representing likely tracheitis Oxygen requirements were high on admission and continued to be quite high, averaging over 15 L/min to maintain saturations above 85%, prior to transition to ELECTRICAL CONTACTS ADJUSTER Patient has no oxygen requirement at home Discontinue steroids, antibiotics on 02/24 in alignment with comfort care. Otherwise as above Oxygen weening expectations as above Symptomatic care, as above Encephalopathy, multifactorial Baseline cognition limited per family CT head negative Comfort measures, delirium precautions as above Dispo: MedSurg, ELECTRICAL CONTACTS ADJUSTER, inpatient passing vs. hospice care? Diet: N.p.o. recommended per speech given high risk of aspiration / otherwise as above. May consider diet as requested per patient after discussion with family/POA for comfort. Code: DNR/DNI (2) Hypoxia: (3) Abnormal CT of the abdomen: (4) Urinary tract infection: (5) Chronic GERD: (6) Thrombocytopenia: (7) Mediastinitis: Admission and Anticipated Discharge Date Admission Date: February 24, 2021 Supervising Physician Co-Signing Physician Notes I personally examined the patient and verified all garcia points of history and exam, discussed case, and agree with decision making with Dr Mendoza. no meaningful HPI or ROS. vitals noted nad heent nc at mmm breathing unlabored no accessory muscles good effort goals of care - comfort measures only. appearing comfortable. continue current care for now aspiration pneumonia w sepsis present on admission metabolic encephalopathy - multifactorial otherwise as above Subjective Patient seen and evaluated at bedside this morning. States that he is "doing so- so." Unable to obtain meaningful HPI or ROS from patient due to cognitive status. Review of Systems Review of Systems: Unable to obtain due to cognitive status. Physical Exam Physical Exam: GENERAL: No acute distress. Resting comfortably laying supine in bed with HOB elevated. NC in place. EYES: Anicteric sclerae. HENT: Dry mucous membranes. RESPIRATORY: Currently on 3L O2 via NC. No increased work of breathing. Resting comfortably. SKIN: Warm, dry. NEUROLOGIC: A/O x1 to self only. Resident Activity Tracking Resident Involvement: Resident Care Provided Care Provided: Adult Hospital Medicine
--- NOTE | 2021-02-28 11:07 | Palliative Care Progress Note ---
Date of Service February 28, 2021 Assessment & Plan (1) Palliative care encounter: He is tolerating O2 wean. Sister is at bedside. We discussed continuing IV morphine while weaning O2. He will likely need SNF placement and would need to be on oral opioid. Monitor today as O2 is weaned and plan to convert to morphine concentrate tomorrow in anticipation of discharge to SNF. I talked with his sister about what to expect. She asked about prognosis which could be 1-2 weeks. Admission and Anticipated Discharge Date Admission Date: February 24, 2021 Subjective Responds to questions and says that he's "ok". Appears comfortable. Per his sister, his speech is more difficult to understand today. He is on routine morphine with no prn use. Weaning oxygen which he is tolerating. Review of Systems Review of Systems: [place] Symptom Assessment Scale Pain 0/3 Dypsnea 0/3 Nausea 0/3 Anxiety 0/3 Drowsiness 1/3 Palliative Performance Score 30% Physical Exam Constitutional: no acute distress ENMT: Mouth: + dry oral mucous membranes Respiratory: normal respiratory effort; no labored breathing Cardiovascular: Extremities: no edema Gastrointestinal (Abdomen): Percussion/Palpation: abdomen soft; abdomen nontender Musculoskeletal: Extremities: + muscle atrophy Skin: warm and dry Neurologic: awake PG Care Time/CCT Total # of Minutes Spent Total Time Spent with Patient: Total time spent is greater than 50% in coordination of care (as documented) at patient's floor/unit and/or counseling patient: total time spent 25min with more than 50% of time spent on symptom management, prognosis, family education Coding Level of Care Code 91362 Subseq Hosp Care Lvl 2 Diagnoses Palliative care encounter Z51.5
--- NOTE | 2021-02-28 19:57 | Billing Data ---
Date of Service February 28, 2021 Coding Level of Care Code 46034 Subseq Hosp Care Lvl 1
[2021-02-28] MEDS: ERYTHROMYCIN OP OINT 5 MG/GM 3.5 GM TUBE OPL SCH (20:06)
[2021-03-01] MEDS: MoRPHine SULFATE 2 MG/ML CARP IV SCH ×3 (01:29→08:43)
[2021-03-01] MEDS ORDERED: ATROPINE SULFATE 1% OP SOLN 5 ML BTL SL PRN (07:32)
[2021-03-01] MEDS ORDERED: LORazepam 0.5 MG TAB PO PRN (07:32)
[2021-03-01] MEDS ORDERED: ONDANSETRON 4 MG OD TAB SL PRN (07:32)
[2021-03-01] MEDS ORDERED: MoRPHine SULFATE 5 MG/0.25 ML UDP PO SCH (07:45)
[2021-03-01] MEDS: ARTIFICIAL TEARS OP SCH ×4 (08:51→20:45)
--- NOTE | 2021-03-01 09:14 | Hospitalist Progress Note ---
Date of Service March 01, 2021 Assessment & Plan (1) Encephalopathy acute: This is a 76-year-old gentleman with a notable past medical history of cognitive impairment, prostate cancer, GERD, hyperlipidemia who presented to [facility] with his sister who noted increased altered mental status. He was found to be in acute hypoxic respiratory failure and required supplemental O2. His chest CT did reveal evidence of aspiration PNA and tracheitis; mediastinitis is considered less likely at this time. After thorough discussion with the family (02/24-), patient was transitioned to comfort care. Goals of care -- DISASTER RECOVERY ANALYST; DNR/DNI Please refer to note on 02/24/2021 for extensive details regarding initial transition to DISASTER RECOVERY ANALYST Family's wishes to pursue discontinuation of intensive medical therapy, including antibiotics and steroids, in favor of promoting his comfort continue Abstain from daily labs, IV fluids and maintenance medications Eye care, nausea management, fever/pain management, anxiety management Morphine transitioned from IV to po today in preparation for potential SNF placement. Discussion held regarding weening oxygen, expectations in context of comfort. Weaned to room air. Supplemental oxygen not required; manage comfort. -- Palliative care consulted, appreciate their assistance and recommendations. Suspected Aspiration PNA + Tracheitis + Mediastinitis -- with notable history of recent aspiration In the setting of acute hypoxic respiratory failure, as well as CT findings concerning for significant thickening of the trachea, central airways, and lower lobe bronchi, representing likely tracheitis Oxygen requirements were high on admission and continued to be quite high, averaging over 15 L/min to maintain saturations above 85%, prior to transition to DISASTER RECOVERY ANALYST Patient has no oxygen requirement at home Discontinue steroids, antibiotics on 02/24 in alignment with comfort care. Otherwise as above Oxygen weening expectations as above Symptomatic care, as above Encephalopathy, multifactorial Baseline cognition limited per family CT head negative Comfort measures, delirium precautions as above Dispo: MedSurg, DISASTER RECOVERY ANALYST, inpatient passing vs. hospice care?, hopeful for discharge to [facility] tomorrow Diet: N.p.o. recommended per speech given high risk of aspiration / otherwise as above. May consider diet as requested per patient after discussion with family/POA for comfort. Code: DNR/DNI (2) Hypoxia: (3) Abnormal CT of the abdomen: (4) Urinary tract infection: (5) Chronic GERD: (6) Thrombocytopenia: (7) Mediastinitis: Admission and Anticipated Discharge Date Admission Date: February 24, 2021 Supervising Physician Co-Signing Physician Notes I personally examined the patient and verified all garcia points of history and exam, discussed case, and agree with decision making with Dr Mendoza. no meaningful HPI or ROS. vitals noted nad heent nc at mmm breathing unlabored no accessory muscles good effort goals of care - comfort measures only. appearing comfortable. likely for SNF w hospice. aspiration pneumonia w sepsis present on admission. appearing comfortable now metabolic encephalopathy - multifactorial otherwise as above Subjective Patient seen and evaluated at bedside this morning. Unable to obtain meaningful HPI or ROS from patient due to cognitive status. Review of Systems Review of Systems: Unable to obtain due to cognitive status. Physical Exam Physical Exam: GENERAL: No acute distress. Resting comfortably laying supine in bed with HOB elevated. NC in place. EYES: Anicteric sclerae. HENT: Dry mucous membranes. RESPIRATORY: Currently on 2L O2 via NC. No increased work of breathing. Resting comfortably. SKIN: Warm, dry. NEUROLOGIC: Dysarthric. Unable to understand patient's speech. Follows commands intermittently. Resident Activity Tracking Resident Involvement: Resident Care Provided Care Provided: Adult Hospital Medicine
[2021-03-01] MEDS ORDERED: MoRPHine SULFATE 5 MG/0.25 ML UDP PO PRN (10:19)
--- NOTE | 2021-03-01 10:27 | Palliative Care Progress Note ---
Date of Service March 01, 2021 Assessment & Plan (1) Palliative care encounter: Recurrent aspiration. His sister and caregiver has requested comfort measures only. He has been weaned off O2 and is tolerating room air. He remains comfortable on routine IV morphine. Plan for discharge to [facility] tomorrow. IV morphine converted to oral morphine concentrate. Monitor in anticipation of discharge tomorrow. Called his sister to discuss. No answer. (2) Esophageal dysmotility: Admission and Anticipated Discharge Date Admission Date: February 24, 2021 Subjective Awake. Resting quietly in bed. "i'm ok". Answers yes when asked if comfortable. Off O2. Denies feeling short of breath Review of Systems Review of Systems: [place] Symptom Assessment Scale Pain 0/3 Dyspnea 0/3 Anxiety 0/3 Drowsiness 0/3 Palliative Performance Score 30% Physical Exam Constitutional: + thin and + frail appearing ENMT: Mouth: + dry oral mucous membranes Respiratory: normal respiratory effort; no labored breathing and does not use accessory muscles Cardiovascular: Extremities: no edema Gastrointestinal (Abdomen): Percussion/Palpation: abdomen soft; abdomen nontender Musculoskeletal: Extremities: + muscle atrophy Skin: warm and dry PG Care Time/CCT Total # of Minutes Spent Total Time Spent with Patient: Total time spent is greater than 50% in coordination of care (as documented) at patient's floor/unit and/or counseling patient: Coding Level of Care Code 68678 Subseq Hosp Care Lvl 2 Diagnoses Palliative care encounter Z51.5 Esophageal dysmotility K22.4
[2021-03-01] MEDS: MoRPHine SULFATE 5 MG/0.25 ML UDP PO SCH ×3 (13:04→20:44)
--- NOTE | 2021-03-01 18:58 | Billing Data ---
Date of Service March 01, 2021 Coding Level of Care Code 80747 Subseq Hosp Care Lvl 1
[2021-03-01] MEDS: ERYTHROMYCIN OP OINT 5 MG/GM 3.5 GM TUBE OPL SCH (20:44)
[2021-03-02] MEDS: MoRPHine SULFATE 5 MG/0.25 ML UDP PO SCH ×7 (00:59→22:09)
[2021-03-02] MEDS: ARTIFICIAL TEARS OP SCH ×4 (08:44→20:45)
[2021-03-02] MEDS ORDERED: MoRPHine SULFATE 2 MG/ML CARP IV PRN (10:22)
--- NOTE | 2021-03-02 10:44 | Hospitalist Progress Note ---
Date of Service March 02, 2021 Assessment & Plan (1) Encephalopathy acute: This is a 76-year-old gentleman with a notable past medical history of cognitive impairment, prostate cancer, GERD, hyperlipidemia who presented to [facility] with his sister who noted increased altered mental status. He was found to be in acute hypoxic respiratory failure and required supplemental O2. His chest CT did reveal evidence of aspiration PNA and tracheitis; mediastinitis is considered less likely at this time. After thorough discussion with the family (02/24-), patient was transitioned to comfort care. Goals of care -- HYDRO GENERATION SUPERVISOR; DNR/DNI Please refer to note on 02/24/2021 for extensive details regarding initial transition to HYDRO GENERATION SUPERVISOR Family's wishes to pursue discontinuation of intensive medical therapy, including antibiotics and steroids, in favor of promoting his comfort continue Abstain from daily labs, IV fluids and maintenance medications Eye care, nausea management, fever/pain management, anxiety management Morphine transitioned from IV to po today in preparation for potential SNF placement. Discussion held regarding weening oxygen, expectations in context of comfort. Weaned to room air 03/01. Supplemental oxygen not required; manage comfort. -- Palliative care consulted, appreciate their assistance and recommendations. Suspected Aspiration PNA + Tracheitis + Mediastinitis -- with notable history of recent aspiration In the setting of acute hypoxic respiratory failure on admission, as well as CT findings concerning for significant thickening of the trachea, central airways, and lower lobe bronchi, representing likely tracheitis Oxygen requirements were high on admission and continued to be quite high, averaging over 15 L/min to maintain saturations above 85%, prior to transition to HYDRO GENERATION SUPERVISOR Patient has no oxygen requirement at home Discontinue steroids, antibiotics on 02/24 in alignment with comfort care. Otherwise as above Encephalopathy, multifactorial Baseline cognition limited per family CT head negative Comfort measures, delirium precautions as above Dispo: MedSurg, HYDRO GENERATION SUPERVISOR, inpatient passing vs. hospice care?, potential for discharge to [facility] Diet: N.p.o. recommended per speech given high risk of aspiration / otherwise as above. May consider diet as requested per patient after discussion with family/POA for comfort. Code: DNR/DNI (2) Hypoxia: (3) Abnormal CT of the abdomen: (4) Urinary tract infection: (5) Chronic GERD: (6) Thrombocytopenia: (7) Mediastinitis: Admission and Anticipated Discharge Date Admission Date: February 24, 2021 Supervising Physician Co-Signing Physician Notes I personally examined the patient and verified all garcia points of history and exam, discussed case, and agree with decision making with Dr Mendoza. no meaningful HPI or ROS. vitals noted nad breathing unlabored no accessory muscles good effort goals of care - comfort measures only. appearing comfortable. ongoing comfort c are. may pass in the next ~24hrs aspiration pneumonia w sepsis present on admission. appearing comfortable now metabolic encephalopathy - multifactorial otherwise as above Subjective Patient seen and evaluated at bedside this morning. He has declined since yesterday and is now nonverbal. Does open eyes to verbal stimuli but does not attempt to verbally respond. Unable to obtain meaningful HPI or ROS from patient due to cognitive status. Review of Systems Review of Systems: Unable to obtain due to cognitive status. Physical Exam Physical Exam: GENERAL: No acute distress. Resting comfortably laying supine in bed. EYES: Anicteric sclerae. HENT: Dry mucous membranes. RESPIRATORY: No increased work of breathing. Resting comfortably. SKIN: Warm, dry. NEUROLOGIC: Opens eyes to verbal stimuli. Verbally unresponsive. Does not follow commands. Results & Data Results & Data ([facility]) Vital Signs (Past 12 Hours) Vital Signs Pulse Resp BP Pulse Ox 03/02/21 10:10 122 H 24 70/47 L 77 L Resident Activity Tracking Resident Involvement: Resident Care Provided Care Provided: Adult Hospital Medicine
[2021-03-02] MEDS: MoRPHine SULFATE 2 MG/ML CARP IV SCH ×5 (11:18→22:43)
--- NOTE | 2021-03-02 12:39 | Palliative Care Progress Note ---
Date of Service March 02, 2021 Assessment & Plan (1) Palliative care encounter: I met with his sister, Lo, at bedside. He is actively dying and I talked with her about him likely dying today. He would not be stable to transport to SNF. She is questioning whether she should have put him through radiation therapy for his prostate cancer and whether his dying is her fault. She talks about Leonel loving to eat and is certain that he would not want feeding tube. She has cared for him for more than 20 years and cared for her mother with dementia prior to that. His will leave a big void in her life. She has good support from her but no other family. I reassured her that she made a decision based on what she thought was right for Leonel and allowed him to peacefully. He has been getting routine oral morphine in preparation for discharge to SNF. He is not opening his mouth for oral morphine concentrate. Will restart IV morphine. Anticipate within hours. (2) Sepsis: (3) Prostate cancer: (4) Dysphagia: Admission and Anticipated Discharge Date Admission Date: February 24, 2021 Subjective Unresponsive, hypotensive. His sister is at bedside and is tearful and anxious. Review of Systems Review of Systems: Unobtainable due to reduced consciousness [place] Sym ptom Assessment Scale PainAD 0/3 Dyspnea 0/3 Drowsiness 3/3 Palliative Performance Score 10% Physical Exam Constitutional: comfortable ENMT: unable to open mouth Respiratory: + uses accessory muscles Davonte Chauhan breathing Cardiovascular: Extremities: no edema mottling Gastrointestinal (Abdomen): Percussion/Palpation: abdomen soft Musculoskeletal: Extremities: + muscle atrophy Neurologic: + obtunded Results & Data ([facility]) Vital Signs (Past 12 Hours) Vital Signs Pulse Resp BP Pulse Ox 03/02/21 10:10 122 H 24 70/47 L 77 L PG Care Time/CCT Total # of Minutes Spent Total Time Spent with Patient: Total time spent is greater than 50% in coordination of care (as documented) at patient's floor/unit and/or counseling patient: Time spent 40 minutes with more than 50% of time spent on goals of care, family support, symptom management Coding Level of Care Code 32004 Subseq Hosp Care Lvl 3 Diagnoses Palliative care encounter Z51.5 Sepsis A41.9 Sepsis acute organ dysfunction status: unspecified Sepsis type: sepsis due to unspecified organism Prostate cancer C61 Dysphagia R13.10 (1) Sepsis Sepsis acute organ dysfunction status: unspecified Sepsis type: sepsis due to unspecified organism Qualified Code(s): A41.9 - Sepsis, unspecified organism
[2021-03-02] MEDS: ERYTHROMYCIN OP OINT 5 MG/GM 3.5 GM TUBE OPL SCH (20:43)
--- NOTE | 2021-03-02 20:48 | Billing Data ---
Date of Service March 02, 2021 Coding Level of Care Code 73277 Subseq Hosp Care Lvl 1
[2021-03-03] MEDS: MoRPHine SULFATE 5 MG/0.25 ML UDP PO SCH (00:45)
[2021-03-03] MEDS: MoRPHine SULFATE 2 MG/ML CARP IV SCH (01:38)
--- NOTE | 2021-03-03 03:04 | Death Pronouncement Note ---
Date of Service March 03, 2021 Pronouncement Note Admission Date Admission Date: February 24, 2021 Date and Time of Date of : 03/03/21 Time of : 02:35 Contributing Factors (1) Encephalopathy acute: (2) Hypoxia: (3) Abnormal CT of the abdomen: (4) Urinary tract infection: (5) Chronic GERD: (6) Thrombocytopenia: (7) Mediastinitis: Hospital Course Hospital Course: Patient passed at 02:35 on 03/03/21 This is a 76-year-old gentleman with a notable past medical history of cognitive impairment, prostate cancer, GERD, hyperlipidemia who presented to [facility] with his sister who noted increased altered mental status. He was found to be in acute hypoxic respiratory failure and required supplemental O2. His chest CT did reveal evidence of aspiration PNA and tracheitis; mediastinitis is considered less likely at this time. After thorough discussion with the family (02/24-), patient was transitioned to comfort care. 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 Discussion held regarding weening oxygen, expectations in context of comfort. Weaned to room air 03/01. Supplemental oxygen not required; manage comfort. -- Palliative care consulted, appreciate their assistance and recommendations. Suspected Aspiration PNA + Tracheitis + Mediastinitis -- with notable history of recent aspiration In the setting of acute hypoxic respiratory failure on admission, as well as CT findings concerning for significant thickening of the trachea, central airways, and lower lobe bronchi, representing likely tracheitis Oxygen requirements were high on admission and continued to be quite high, av eraging over 15 L/min to maintain saturations above 85%, prior to transition to MICROSTRATEGY ARCHITECT DEVELOPER Patient has no oxygen requirement at home Discontinue steroids, antibiotics on 02/24 in alignment with comfort care. Otherwise as above Encephalopathy, multifactorial Baseline cognition limited per family CT head negative Comfort measures, delirium precautions as above Summary Additional details: Patient examined at the bedside. Patient was confirmed to have no pulse, respirations, heart sounds, with fixed and dilated pupils. Additional Data Confirmation of : no pulse, no respirations, no heart sounds and pupils fixed and dilated Family: contacted Attending/PCP notified?: No Attending physician: Sam Mclaughlin, DO Was code activated?: No land title examiner notified?: No Organ bank notified?: No Advance directives: Yes
--- NOTE | 2021-03-03 12:55 | Discharge Summary ---
Date of Service March 03, 2021 Admission HPI Per Admitting Provider Patient unresponsive to questions, history gathered from EM physician who spoke to the patient's daughter while she was there. Patient was found to be acutely altered and fell off the commode. Daughter states he's had a decreased appetite, productive cough, says he behaved like this last time he was admitted for a UTI sepsis. Chart review shows hx adenocarcinoma of prostate treated with TURP, brachytherapy and androgen blockade. Primary Care Provider: Carlos Dasilva MD Admission Exam Per Admitting Provider Constitutional: ill appearing, disheveled, not vocal, baseline tremor of whole body, rigors Eyes: eyelids lowered, extensive tear production from both eyes, no conjunctivitis, icterus, pupils equal and reactive to light Cardiac: RRR, no murmurs, gallops or rubs. Normal S1, S2 Pulm: increased respiratory effort, rhonchorous breath sounds throughout all lung khan, on 6L NC, productive cough Abd: soft, nontender, nondistended, normal bowel sounds, no rebound or guarding Extremities: 2+ peripheral pulses, no edema Neuro:not answering questions, responsive to pain, moving limbs of own accord Principal Diagnosis acute hypoxemic respiratory failure Discharge Exam Exam per note from Dr. Jade: no pulse, no respirations, no heart sounds and pupils fixed and dilated Discharge Data Allergies Allergy/AdvReac Type Severity Reaction Status Date / Time alendronate sodium AdvReac Intermediate Nausea Verified 02/24/21 01:11 tamsulosin AdvReac Intermediate Nausea Verified 02/24/21 01:11 Consultations 02/24/21 03:41 ED Decision to Admit Stat 02/24/21 15:14 Consult Palliative Care Routine Ordered Studies 02/24/21 02:07 CT head/brain wo con Urgent 02/24/21 02:16 CT chest diagnostic w con Urgent Hospital Course (1) Encephalopathy acute: This is a 76-year-old gentleman with a notable past medical history of cognitive impairment, prostate cancer, GERD, hyperlipidemia who presented to [facility] with his sister who noted increased altered mental status. He was found to be in acute hypoxic respiratory failure and required supplemental O2. His chest CT did reveal evidence of aspiration PNA and tracheitis; mediastinitis is considered less likely at this time. After thorough discussion with the family (02/24-), patient was transitioned to comfort care. Goals of care -- JINRIKISHA DRIVER; DNR/DNI Please refer to note on 02/24/2021 for extensive details regarding initial transition to JINRIKISHA DRIVER Family's wishes to pursue discontinuation of intensive medical therapy, in cluding antibiotics and steroids, in favor of promoting his comfort continue Abstain from daily labs, IV fluids and maintenance medications -- Palliative care consulted, appreciated their assistance and recommendations. Suspected Aspiration PNA + Tracheitis + Mediastinitis -- with notable history of recent aspiration In the setting of acute hypoxic respiratory failure on admission, as well as CT findings concerning for significant thickening of the trachea, central airways, and lower lobe bronchi, representing likely tracheitis Oxygen requirements were high on admission and continued to be quite high, averaging over 15 L/min to maintain saturations above 85%, prior to transition to JINRIKISHA DRIVER Patient has no oxygen requirement at home Discontinue steroids, antibiotics on 02/24 in alignment with comfort care. Otherwise as above Encephalopathy, multifactorial Baseline cognition limited per family CT head negative Comfort measures, delirium precautions as above Patient on 03/03/21 at 0235. Family was notified. (2) Hypoxia: (3) Abnormal CT of the abdomen: (4) Urinary tract infection: (5) Chronic GERD: (6) Thrombocytopenia: (7) Mediastinitis: Total Time Total Time Spent Total Time Spent (In Minutes): See attending attestation Discharge Plan Discharge Items Patient Disposition: Discharge Diagnosis: Addtl Attending Provider Instructions: see note Resident Activity Tracking Resident Involvement: Resident Care Provided Care Provided: Adult Hospital Medicine
== END 2021-03-03 04:04 | disposition expired | DRG 871 ==
LOC: ED 00:48 → SUATTDRO 04:26 → 2E 04:26 → 3W 21:17